=== PATIENT | female | born 1945 | race Caucasian/White ===

== ENCOUNTER → 2017-11-01 05:58 | Outpatient (CLI) | payer MEDICARE, SELFPAY ==
--- NOTE | 2017-11-01 17:59 | STRESSREP ---
Stress Test Report Pharmacologic myocardial perfusion stress test. 72-year-old lady with a history of chest pain. Stress protocol: Resting EKG demonstrates normal sinus rhythm with a rate of 56 bpm and incomplete left bundle branch block is noted. 0.4 mg of regadenoson was infused per usual protocol followed by rapid intravenous saline flush injection. Continuous EKG monitoring was performed. Patient maintained sinus rhythm throughout the recording the maximum heart rate attained was 108 bpm which was 72% maximum predicted heart rate the maximum workload attained was 1 metabolic equivalent. At rest there were no ST or T-wave changes noted suggest abnormal flow reserve at peak infusion no ST or T-wave changes were noted suggest abnormal flow reserve. Resting blood pressure is 128/80 with a final blood pressure 120/78. Myocardial perfusion protocol. 14.1 mCi of technetium 99m sestamibi was injected at rest. 0.4 mg regadenoson was infused per usual protocol. Peak infusion 45.0 mCi of technetium 99m sestamibi was injected. Stress images were obtained stress and rest images were reconstructed and compared in the short axis vertical long and horizontal long axis. Gated images were also obtained. Perfusion SPECT analysis: Review of the stress images demonstrate normal uptake of tracer noted in all areas of the myocardium. The resting images similarly demonstrate normal uptake of tracer noted in all areas of the myocardium. No areas of reversibility are noted no previous infarct is present. Gated SPECT analysis: The gated ejection fraction is noted to be 81%. Conclusion: Normal pharmacologic myocardial perfusion stress test. Preserved ejection fraction.
== END ==
PROVIDERS: Family Provider Internal Medicine; PCP Internal Medicine; Visit Provider Internal Medicine
DX: R07.9 Chest pain, unspecified (principal); I44.7 Left bundle-branch block, unspecified
CPT/HCPCS: 78452; 93017; A9500; A4216; J2785

== ENCOUNTER 2018-02-22 08:29 | Emergency (ER) | payer MEDICARE, SELFPAY ==
[2018-02-22 08:30] VITALS: BP 120/88; PULSE 74; RESP 16; TEMP 36.7; O2SAT 96; BMI 31.1
--- NOTE | 2018-02-22 08:46 | RAD_ITS ---
STUDY: X-RAY - RIGHT KNEE REASON FOR EXAM: Female, 72 years old. Limited range of motion TECHNIQUE: 4 view(s) of the knee. COMPARISON: None. FINDINGS: There is mild osteophytosis. There is no fracture. There is no osseous destruction. IMPRESSION: Mild degenerative changes Electronically Signed: Kale Ayers MD at 9:33 EDT Tel , Service support , RAD/Knee 4 or More Views
--- NOTE | 2018-02-22 08:52 | NURSING ---
NO LW OR POA
--- NOTE | 2018-02-22 08:53 | ED.VISSUMM ---
- ER Visit Summary Date of Service: 02/22/18 Chief Complaint: Right knee pain History of Present Illness: The patient is a 72 F with right knee pain for the past 3 days. She states the first day to start as mild aching, but was worsened yesterday. She was seen at urgent care yesterday where patient states she was told was probably a ligament injury. I last evening the pain was worse and she was unable to bear weight. She went back to the urgent care today but was sent directly to the emergency room. She denies any known injury. It is not been red or warm. She has had no prior knee surgery. Physical Examination: Vital signs are unremarkable. Patient sitting upright in bed no acute distress. Head neck examination is unremarkable. Heart is regular rate and rhythm. Lower extremity examination reveals focal tenderness of the medial aspect of the right knee. There is no tenderness of the anterior lateral knee. There is mild focal edema. There is no significant pain with movement of the knee. There is no calf tenderness or edema. There are strong distal pulses. Test Results: Right knee x-rays reveal mild degenerative changes. Emergency Department Course and Treatment: Test results are discussed with patient and her at bedside. She was treated with oxycodone and prednisone. Clinically I see no sign of acute infection in her knee. I see no sign of DVT. I believe she likely strained her MCL and has focal tenderness and swelling to this area. Should be treated with a short course of oxycodone and prednisone at home. Treatment Plan: [] Disposition: Discharge Impression: Right knee sprain This note was generated with [employer] dictation software. It may contain incorrect words, spelling, and punctuation that were not noted in review of the chart prior to signing ED Disposition - Plan for ED Patient: Chief Complaint: Lower Extremity Injury Referrals: Pastora Venegas MD [Primary Care Provider] -
[2018-02-22] MEDS: predniSONE 20 MG Tablet 60 MG PO (09:57)
[2018-02-22] MEDS: oxyCODONE 5 MG Tablet PO (09:57)
--- NOTE | 2018-02-22 09:57 | ED.DEP ---
ED Disposition - Plan for ED Patient: Disposition: Home or Assisted Living Chief Complaint: Lower Extremity Injury Instructions: ED Sprain Knee Prescriptions: Oxycodone HCl/Acetaminophen [Percocet 5/325] 1 tablet PO Q6H PRN PRN 3 Days #12 tablet PRN Reason: Pain Prednisone [Deltasone] 60 mg PO DAILY #15 tab Referrals: Marcos Ybarra DO [STAFF PHYSICIAN] - 1 Week if not improving
[2018-02-22 11:04] VITALS: BP 144/63; PULSE 73; RESP 16; O2SAT 97
== END 2018-02-22 11:05 | disposition home or self-care (01) ==
PROVIDERS: Emergency Provider Emergency Medicine; Family Provider Internal Medicine; PCP Internal Medicine
DX: S83.91XA Sprain of unspecified site of right knee, initial encounter (principal); X58.XXXA Exposure to other specified factors, initial encounter; Y93.9 Activity, unspecified; Y92.9 Unspecified place or not applicable; Y99.9 Unspecified external cause status; J45.909 Unspecified asthma, uncomplicated
CPT/HCPCS: 73564; 99283

== ENCOUNTER 2018-10-07 20:53 | Emergency (ER) | payer MEDICARE, SELFPAY ==
[2018-10-07 20:53] VITALS: BP 148/100; PULSE 97; RESP 24; TEMP 36; O2SAT 98; BMI 31.9
--- NOTE | 2018-10-07 21:06 | EKG12_ITS ---
Test Reason : Blood Pressure : / mmHG Vent. Rate : 078 BPM Atrial Rate : 078 BPM P-R Int : 148 ms QRS Dur : 118 ms QT Int : 414 ms P-R-T Axes : 032 033 092 degrees QTc Int : 471 ms Normal sinus rhythm Low voltage QRS Septal infarct , age undetermined Abnormal ECG Confirmed by SIMIN TYLER ([id number]), digital editor KELLY FLANNERY ([id number]) on 10/10/2018 1:12:12 PM Referred By: JODI Confirmed By:SIMIN TYLER
--- NOTE | 2018-10-07 21:06 | RAD_ITS ---
STUDY: X-RAY CHEST REASON FOR EXAM: Female, 73 years old. Shortness of breath TECHNIQUE: Frontal view of the chest COMPARISON: None. FINDINGS: The lungs are clear. There are no pleural effusions. There is no pneumothorax. The heart is normal in size. The visualized osseous structures are within normal limits. RAD/Chest 1 View (Portable) IMPRESSION: No acute thoracic pathology. Electronically Signed: Kale Villalta, at 21:59 EST Tel , Service support ,
[2018-10-07 21:17] VITALS: O2SAT 94
[2018-10-07] MEDS: Ipratropium/Albuterol Sulfate 3 ML AMPUL.NEB INHALATION (21:21)
[2018-10-07 21:36] VITALS: PULSE 96; RESP 20
[2018-10-07 21:41] LABS: Absolute Lymphocyte Count 1.52 X10^3/ul (0.83-4.51); Absolute Neutrophil Count 6.1 X10^3/uL (2.0-7.7); Basophil# 0.04 X10^3/uL; Basophil% 0.5 % (0-1); Eosinophils% 1.2 % (0-5); Hematocrit 39.8 % (37-47); Hemoglobin 12.9 g/dl (12.0-15.0); Lymphocyte # 1.52 X10^3/ul (4.0); Lymphocyte % 17.9 % (19-41); Mean Corp Hgb Conc 32.4 g/gl (32-36); Mean Corpuscular Hgb 27.8 pg (27.0-32.0); Mean Corpuscular Volume 85.8 fL (81-99); Mean Platelet Vol. 9.9 fl (6.2-12.0); Monocyte# 0.66 X10^3/uL; Monocyte% 7.8 % (0-10); Neutrophil # 6.13 X10^3/uL (2.7-7.7); Neutrophil % 72.4 % (47-70); Platelet Count 308 K/mm3 (150-450); RBC Distribution Width CV 14.6 % (11.6-14.6); RBC Distribution Width SD 45.8 fl (35.1-43.9); Red Blood Count 4.64 M/mm3 (4.2-5.4); White Blood Count 8.5 K/mm3 (4.4-11.0)
[2018-10-07 21:42] LABS: POSITIVE COUNT NO; POSITIVE DIFFERENTIAL NO; POSITIVE MORPHOLOGY NO
[2018-10-07 21:57] LABS: Anion Gap 7 (5-15); BUN 10 mg/dL (7-18); Calcium,Total 8.1 mg/dL (8.5-10.1); Chloride 108 mmol/L (98-107); EST Glomerular Filtration Rate 58 mL/min (>60); Est Glom Filt Rate - Afr Amer 70 mL/min (>60); Estimated Creatinine Clearance 38.94 ml/min; Glucose 111 mg/dL (74-106); Potassium 4.2 mmol/L (3.5-5.1); Sodium Level 139 mmol/L (136-145)
[2018-10-07 21:59] VITALS: BP 159/100; PULSE 82; RESP 24; TEMP 36.6; O2SAT 95
--- NOTE | 2018-10-07 22:15 | ED.DCSUM_ITS ---
- ER Visit Summary Date of Service: 10/07/18 Chief Complaint: []-Shortness of breath hoarse voice for days History of Present Illness: The patient is a 73 F [] asthma she indicates a few days ago she developed a runny nose and a consistent cough and hoarse voice she was seen at a local urgent care started on prednisone she has inhalers at home she still continues to complain of postnasal drainage and harsh coughing she denies chest pain abdominal pain numbness 6 paresthesias but no history of [place] PE or DVT asthma is generally well controlled Physical Examination: [] Ox 96 afebrile blood pressure within normal range General, no distress resting comfortably HEENT is generally unremarkable she has a dry harsh cough and a slight hoarse voice there is no stridor or drooling no airway compromise The neck is supple no adenopathy Cardiovascular, regular rate and rhythm Lungs, clear bilateral Abdomen, soft nontender Extremities, no clubbing cyanosis or edema Neurologic, awake alert answering questions appropriately moving all 4 extremities Test Results: [] Emergency Department Course and Treatment: [] has a URI with harsh cough she is been on steroids her EKG shows a sinus rhythm nothing acute left bundle no new changes will provide therapy screening labs The screening labs are unremarkable as is the chest x-ray and explained the above to her at this time we will continue the inhalers she is currently on steroids which she will complete, I do not believe she would benefit from antibiotics, we will start Flonase to help with her postnasal drainage and have her follow-up with her family doctors in the next few days Treatment Plan: [] Disposition: [] Home stable Impression: [] URI with harsh cough asthma This note was generated with [employer] dictation software. It may contain incorrect words, spelling, and punctuation that were not noted in review of the chart prior to signing ED Disposition - Plan for ED Patient: Referrals: Pastora Venegas MD [Primary Care Provider] -
--- NOTE | 2018-10-07 22:28 | DCINST.ED_ITS ---
ED Disposition - Plan for ED Patient: Instructions: ED Reactive Airway Disease, ED Bronchitis Asthmatic Prescriptions: Albuterol Inhaler [Ventolin Hfa] 1 - 2 puff INHALATION Q4H PRN PRN #1 inhaler PRN Reason: Wheezing Fluticasone 0.05% [Flonase Nasal [place]] 1 spray NASAL BID #1 nasal.sry Referrals: Pastora Venegas MD [Primary Care Provider] -
[2018-10-07 22:50] VITALS: BP 137/52; PULSE 87; RESP 20; O2SAT 96
== END 2018-10-07 22:50 | disposition home or self-care (01) ==
LOC: ED 21:30
PROVIDERS: Emergency Provider Emergency Medicine; Family Provider Internal Medicine; PCP Internal Medicine
DX: J06.9 Acute upper respiratory infection, unspecified (principal); J45.909 Unspecified asthma, uncomplicated; Z79.899 Other long term (current) drug therapy
CPT/HCPCS: 71045; 80048; 83880; 84484; 85025; 93005; 94640; 99284; A4216

== ENCOUNTER 2018-11-03 02:15 | Emergency (ER) | payer MEDICARE, SELFPAY ==
[2018-11-03 02:16] VITALS: BP 103/81; PULSE 94; RESP 16; TEMP 36.9; O2SAT 97; BMI 32.1
--- NOTE | 2018-11-03 02:50 | RAD_ITS ---
STUDY: X-RAY - LEFT KNEE REASON FOR EXAM: Female, 73 years old. Fall. Knee pain TECHNIQUE: 3 view(s) of the knee. COMPARISON: None. FINDINGS: Normal visualized distal femur. Normal visualized proximal tibia and fibula. Normal proximal tibiofibular articulation. There is mild degenerative arthrosis of the medial femorotibial compartment. There is mild degenerative arthrosis of the lateral femorotibial compartment. There is moderate degenerative arthrosis of the patellofemoral articulation. There is a moderate volume joint effusion. The soft tissue structures are unremarkable. RAD/Knee 3 Views IMPRESSION: Effusion, as described above. Electronically Signed: Nataliya Root, at 4:53 EDT Tel , Service support ,
--- NOTE | 2018-11-03 02:51 | ED.DCSUM_ITS ---
- ER Visit Summary Date of Service: 11/03/18 Chief Complaint: Fell and complaint of left knee pain and swelling History of Present Illness: The patient is a 73 F patient was at the [employer] and had an issue with there is some point. She slipped or stepped into the sump pump hole on Saturday afternoon. Later that evening developed pain and swelling in her left knee. She states her left knee she does not think after hit the ground. She stepped in the forrest with her right leg. She is never had a significant problems with her left knee. Denies any other injuries. Currently is on no blood thinners. Has never had left knee surgery. Physical Examination: Older female no acute distress. Vital signs are stable and afebrile. HEENT exam unremarkable. Lungs clear to auscultation bilaterally. Heart regular rhythm no murmur. Abdomen soft and nontender. Extremities moves all 4. Her left knee is swollen and tender. There is an obvious effusion. She is able to do flexion extension limited flexion due to the swelling. She can do 180 degrees of extension. She can lift her leg off the bed proven extensor mechanism is intact. The ACL, PCL, LCL and MCL all appear to have good endpoints. No obvious tear. She does have joint space swelling and tenderness. The left hip proximal femur, left lower leg, ankle and foot are nontender neurovascular intact. Normal DP pulse left foot. Dorsi and plantar flexion intact. Normal touch sensation. No gross bony deformity. Skin is intact. No signs of infection. No redness or warmth. Test Results: Left knee x-ray no acute bony abnormality. Good joint space. She does have a moderate effusion. I did go over the films with both patient and her . Repeat exam is unchanged at 03:35 AM. Emergency Department Course and Treatment: Patient was offered but deferred any pain medication at this time. Treatment Plan: Ice and elevate. Tylenol and limited Motrin for pain and swelling. Follow-up with her primary care physician if not improving she may need an MRI to rule this school tear or other ligament or tendinous injury. Disposition: Discharge Impression: Acute left knee pain and swelling with left knee joint effusion This note was generated with [employer] dictation software. It may contain incorrect words, spelling, and punctuation that were not noted in review of the chart prior to signing ED Disposition - Plan for ED Patient: Referrals: Pastora Venegas MD [STAFF PHYSICIAN] -
--- NOTE | 2018-11-03 03:42 | DCINST.ED_ITS ---
ED Disposition - Plan for ED Patient: Disposition: Home or Assisted Living Instructions: ED Sprain Knee Additional Instructions: Ice and elevate your left knee as much as possible. This will help decrease the pain and swelling. Tylenol and either Motrin, ibuprofen or Advil 400 mg twice a day for pain and swelling. Follow-up with your doctor if the pain and swelling is not improving. The x- rays do not show any type of fracture. However this does not rule out a meniscal (cartilage) or tendon injury. If this is not improving he may need an MRI of your knee for further evaluation of the soft tissues.
== END 2018-11-03 03:52 | disposition home or self-care (01) ==
PROVIDERS: Emergency Provider Emergency Medicine; Family Provider Family Medicine; PCP Family Medicine
DX: S83.92XA Sprain of unspecified site of left knee, initial encounter (principal); M25.462 Effusion, left knee; W17.2XXA Fall into hole, initial encounter; Y93.9 Activity, unspecified; Y92.9 Unspecified place or not applicable; Y99.9 Unspecified external cause status; J45.909 Unspecified asthma, uncomplicated; Z79.899 Other long term (current) drug therapy
CPT/HCPCS: 73562; 99282

== ENCOUNTER 2019-01-13 11:51 | Emergency (ER) | payer MEDICARE, SELFPAY ==
[2019-01-13 11:53] VITALS: BP 148/73; PULSE 97; RESP 17; TEMP 36.9; O2SAT 96; BMI 32.8
--- NOTE | 2019-01-13 12:13 | EKG12_ITS ---
Test Reason : ALLERGIC REACTION Blood Pressure : / mmHG Vent. Rate : 083 BPM Atrial Rate : 083 BPM P-R Int : 158 ms QRS Dur : 114 ms QT Int : 442 ms P-R-T Axes : 026 008 130 degrees QTc Int : 519 ms Normal sinus rhythm Septal infarct (cited on or before 07-OCT-2018) Prolonged QT Abnormal ECG Confirmed by GRACY COOK ([id number]), deputy editor in chief NEETU RODAS ([id number]) on 01/15/2019 11:45:46 AM Referred By: DEDE Confirmed By:SANDRA COOK
--- NOTE | 2019-01-13 12:16 | ED.DCSUM_ITS ---
- ER Visit Summary Date of Service: 01/13/19 Chief Complaint: Rash and tongue swelling History of Present Illness: The patient is a 73 F who presents for rash and sensation of her tongue swelling and becoming numb. Patient had a colonoscopy yesterday. Approximately 30 minutes prior to seeking medical care, she began well-appearing a rash on her back and on her forearms, and also developed sensation that her tongue was swelling and becoming numb. Patient has had prior allergic reactions with similar symptoms. Patient was seen at a medical clinic and sent to the emergency department for further evaluation. She denies any lightheadedness or dizziness, headache, chest pain, wheezing, shortness of b reath, nausea or vomiting, abdominal pain. She does have complaints of rash and pruritus to the back and the upper extremities. Denies any sensation of her throat swelling. No cardiac history. Physical Examination: Vital signs: afebrile, hemodynamically stable, no hypoxia on room air General: well nourished, well developed, in no distress Skin: warm, dry, erythematous rash in the pattern of adhesive of a pad that was on her back, urticarial rash to the left forearm, no pallor HEENT: normocephalic and atraumatic; PERRL, EOMI, moist mucous membranes, no noted tongue or lip swelling Cardiovascular: regular rate and rhythm without murmurs, no peripheral edema, 2+ pulses all distal extremities Respiratory: No increased work of breathing, lungs are clear to auscultation bilaterally, no rales, rhonchi or wheezing, no stridor Abdominal: Abdomen is soft, nontender with normoactive bowel sounds, no guarding or rebound, no masses MSK: Moves all extremities, no deformities, normal strength Neuro: Awake and alert, oriented ?4. No facial droop, sensation and motor function intact and symmetric Test Results: Medications Given Discontinued Medications Diphenhydramine HCl (Benadryl) 25 mg IV X1 ONE Stop: 01/13/19 12:13 Last Admin: 01/13/19 12:28 Dose: 25 mg Epinephrine HCl () 0.3 mg IM X1 ONE Stop: 01/13/19 12:13 Last Admin: 01/13/19 12:28 Dose: 0.3 mg Famotidine 20 mg/ Sodium (Chloride) 10 mls @ 300 mls/hr IV X1 ONE Stop: 01/13/19 12:13 Last Admin: 01/13/19 12:32 Dose: 300 mls/hr Methylprednisolone (Solu-Medrol) 125 mg IV X1 ONE Stop: 01/13/19 12:13 Last Admin: 01/13/19 12:28 Dose: 125 mg Emergency Department Course and Treatment: Patient presents with urticaria and sensation of her tongue swelling, concerning for severe allergic reaction. She was given EpiPen, Benadryl, famotidine and Solu-Medrol. EKG was obtained given her age and the administration of epinephrine. EKG showed sinus rhythm with no ischemic changes or ectopy. It did have a prolonged QTc interval. Patient was reevaluated and felt much better. The tongue swelling and numbness sensation had completely resolved. Her urticaria had improved although there was still a mild erythematous rash where the adhesive padded been on her back. Her pruritus was resolved. Patient was observed for a few hours and had no return of her symptoms. She was discharged with a prescription for EpiPen, Benadryl, and prednisone. She is to return if any worsening of her condition. Treatment Plan: [] Disposition: [] Impression: Severe allergic reaction This note was generated with [employer] dictation software. It may contain incorrect words, spelling, and punctuation that were not noted in review of the chart prior to signing ED Disposition - Plan for ED Patient: Disposition: Home or Assisted Living Instructions: ED Anaphylaxis General Prescriptions: DiphenhydrAMINE [Benadryl] 25 mg PO TID PRN PRN #30 cap PRN Reason: Itching Epinephrine [Epipen] 0.3 mg IJ X1 PRN #2 auto.injct PRN Reason: Anaphylaxis RX: Prednisone [Deltasone] 40 mg PO DAILY #10 tab Referrals: Jeff Diehl MD [Primary Care Provider] - 1-2 Days if not improving Additional Instructions: If you have any return of your severe symptoms, use your EpiPen. Take the prednisone for 5 days as prescribed. Use Benadryl as needed for itching and rash. Make sure to take your EpiPen's with you on your travels. If you have any worsening of your condition or any new concerning symptoms, please return immediately to the emergency department for another evaluation.
[2019-01-13] MEDS: MethylPREDNISolone 125 MG/2 ML Vial IV (12:28)
[2019-01-13] MEDS: DiphenhydrAMINE 50 MG/ML Syringe 25 MG IV (12:28)
[2019-01-13 13:00] VITALS: BP 134/58; PULSE 87; RESP 16; O2SAT 97
[2019-01-13 13:54] VITALS: BP 140/64; PULSE 87; RESP 18; O2SAT 97
[2019-01-13 14:48] VITALS: BP 129/78; PULSE 96; RESP 16; O2SAT 98
== END 2019-01-13 14:58 | disposition home or self-care (01) ==
PROVIDERS: Emergency Provider Emergency Medicine; Family Provider Family Medicine; PCP Family Medicine
DX: T78.40XA Allergy, unspecified, initial encounter (principal); L29.9 Pruritus, unspecified; R22.0 Localized swelling, mass and lump, head; R21 Rash and other nonspecific skin eruption; X58.XXXA Exposure to other specified factors, initial encounter; I45.81 Long QT syndrome
CPT/HCPCS: 93005; 96372; 96374; 96375; 99283; J7030; J3490

== ENCOUNTER 2020-03-30 05:48 | Emergency (ER) | payer MEDICARE, SELFPAY ==
[2020-03-30 05:49] VITALS: BP 160/72; PULSE 89; RESP 18; TEMP 36.5; O2SAT 95; BMI 32.0
--- NOTE | 2020-03-30 06:34 | EKG12_ITS ---
Test Reason : ABNL PAIN Blood Pressure : / mmHG Vent. Rate : 063 BPM Atrial Rate : 063 BPM P-R Int : 164 ms QRS Dur : 120 ms QT Int : 494 ms P-R-T Axes : 018 019 087 degrees QTc Int : 505 ms Normal sinus rhythm Septal infarct , age undetermined Abnormal ECG Confirmed by JOYCE MONTANEZ, GRACY ([id number]), purchase request editor DAMEON GIMENEZ ([id number]) on 04/01/2020 11:25:38 A M Referred By: BRIAN Confirmed By:SANDRA COOK MD
--- NOTE | 2020-03-30 06:37 | CT_ITS ---
STUDY: CT ABDOMEN AND PELVIS WITH CONTRAST REASON FOR EXAM: Female, 75 years old. LLQ PAIN -- HX-DIVERTICULITIS YEARS AGO RADIATION DOSAGE (If Supplied By Facility): CTDIvol = ( 19.1 ) mGy, DLP = ( 1040.85 ) mGycm TECHNIQUE: Transaxial images were obtained from the dome of the diaphragm to the symphysis pubis without oral contrast. IV 100mL Isovue-300 was administered. Sagittal and coronal images were reconstructed. Individualized dose optimization techniques were used for this CT. COMPARISON: None. FINDINGS: The visualized lung bases are unremarkable. The visualized portions of the heart are within normal limits. There is a tiny left hepatic lobe cyst adjacent to the falciform ligament measuring approximately 1.4 cm in diameter.. There is a solitary gallstone. Normal spleen. Normal pancreas. Normal bilateral adrenal glands. Normal right kidney. Normal left kidney. Normal visualized stomach. Normal small intestine. There are multiple colonic diverticula consistent with diverticulosis. There is a large amount of retained stool throughout the colon. Correlate for constipation. There is non-visualization of the appendix. There is mild omental fat stranding changes within the anterior aspect of the abdomen anterior to the transverse colon. There is diffuse atherosclerotic calcification of the abdominal aorta, without a demonstrated aneurysm. Normal inferior vena cava. Normal retroperitoneum. Normal urinary bladder. Normal abdominal wall. There are diffuse degenerative changes of the visualized lumbar spine. CT/Abdomen/Pelvis W IV Cont ONLY IMPRESSION: Mild fat stranding changes within the omentum, anterior to the transverse colon. Differential includes possible omental infarct. Infectious inflammatory process also considered. There is no adjacent abnormality of the transverse colon.. Colonic diverticulosis involving the descending and sigmoid colon. Trace fluid adjacent to the sigmoid colon in the left lower pelvis with suggestion of mild wall thickening of this segment, series 2 image 84. Concurrent Mild diverticulitis not excluded. No organized fluid collections. Cholelithiasis without evidence for cholecystitis. Electronically Signed: Juan Alberto Cotton, at 8:03 EDT Tel , Service support ,
--- NOTE | 2020-03-30 06:39 | RAD_ITS ---
STUDY: X-RAY CHEST REASON FOR EXAM: Female, 75 years old. C/O LLQ PAIN, NO PROBLEMS WITH CHEST TECHNIQUE: AP COMPARISON: 10/07/2018. FINDINGS: The lungs are clear and expanded. There is no demonstrated pleural abnormality. Normal size heart. Normal mediastinum and severino. Normal visualized pulmonary arteries. Normal visualized aortic arch and descending thoracic aorta. There are diffuse degenerative changes of the visualized thoracic spine. There is no demonstrated abnormality of the visualized soft tissue structures of the upper abdomen. RAD/Chest 1 View (Portable) IMPRESSION: Negative x-ray examination of the chest. No interval change. Electronically Signed: Juan Alberto Cotton, at 7:24 EDT Tel , Service support ,
--- NOTE | 2020-03-30 06:40 | ED.DCSUM_ITS ---
History of Present Illness Chief Complaint: Abd Pain Informant: Patient, Significant Other - Abdominal Pain/Flank Pain Onset: Today Context: Sudden Onset Timing: Continuous Quality: Sharp Location: LLQ Worsened by: Nothing Relieved by: Nothing - Nausea/Vomiting/Emesis GI Symptom: Negative for: Nausea, Vomiting - Diarrhea/Melena/Hematochezia GI Symptom: Negative for: Diarrhea, Melena, Hematochezia Associated Symptoms: Negative for: Dysuria, Frequency, Hematuria, Urgency Narrative: Patient is a 75-year-old female with history of hyperlipidemia presenting with left lower quadrant abdominal pain. Patient states she is had 2 months of intermittent episodes of left lower quadrant pain they normally resolve spontaneously and she has not thought too much of it. She states last night the pain developed at rest but did not go away like normally. She states is been constant and sharp in nature. She feels that now radiates up to around her heart. She was able to sleep because of the pain last night and she came into the emergency room to be evaluated further. She did not try to take any medication for her pain prior to arrival. She denies any urinary symptoms. She denies any change in her bowel habits. She denies associated nausea or vomiting. She had a tubal ligation with denies any other abdominal surgeries. She does have some mild pain in the left side of her chest below her breast which she feels is radiating up from her abdomen. She denies any associated shortness of breath or difficulty breathing. She denies any fever or chills. No other complaints at this time. Prior similar symptoms: Yes - Intermittent for the past 2 months Recent Illness/Hospitalization: No Past Medical History - Allergies and Home Meds Allergies/Adverse Reactions: Allergies aspirin Allergy (Verified 01/13/19 11:52) Hives Iodinated Contrast Media [Iodinated Contrast Media - Oral and] Allergy (Verified 01/13/19 11:52) Hives shellfish derived Allergy (Verified 01/13/19 11:52) Hives strawberry Allergy (Verified 01/13/19 11:52) Hives Primary Care Physician: Jeff Diehl MD [Primary Care Provider] - Past Medical History: - - Hyperlipidemia Surgical History: - - Tubal ligation Lives: Spouse/ Significant Other Smoking Status: Never smoker Review of Systems General: Denies: Chills, Fever, Sweats Eyes: Denies: Visual changes - bilaterally, Diplopia ENT: Denies: Rhinorrhea, Sore throat Cardiovascular: Reports: Chest pain. Denies: Palpitations Respiratory: Denies: Dyspnea, Cough, Dyspnea on exertion Gastrointestinal: Reports: Abdominal pain. Denies: Nausea, Vomiting, Diarrhea, Melena, Hematochezia Genitourinary: Denies: Dysuria, Hematuria, Frequency Musculoskeletal: Denies: Back pain, Extremity Pain Skin: Denies: Rash, Wounds Neurological: Denies: Headache, Weakness, Numbness Physical Exam Vital Signs/Narrative: Vital Signs Temp Pulse Resp BP Pulse Ox 03/30/20 05:49 97.7 F L 89 18 160/72 H 95 Inital Vital Signs reviewed: Yes General: Well nourished, Well developed, No Acute Distress Head: Normocephalic, Atraumatic Eyes: Perrl, EOMI ENT: Moist mucous membranes, No rhinorrhea Neck: Supple, Nontender Cardiovascular: Regular rate, Regular rhythm, No murmurs Respiratory: No distress, CTA bilaterally, Chest nontender Abdomen: Soft, Nondistended, Normal bowel sounds, Tender - Left lower quadrant, - - No hernia palpated. Negative for: Guarding, Rebound tenderness, Mass Back: Nontender, Normal Inspection. Negative for: CVA tenderness Extremities: Nontender, No edema Skin: Normal color, No rash Neurological: Alert, Oriented x3, Cranial nerves II-XII grossly intact, Normal Strength, Normal Sensation Psychological: Normal affect, Normal Mood Diagnostic/Tx/Re-eval Chest X-Ray - ED: 1 View, Read by ED Physician, Read by Radiologist, No Acute Disease Clinical Impression(s) from Imaging Studies Abdomen/Pelvis CT 03/30/20 06:37 IMPRESSION: Mild fat stranding changes within the omentum, anterior to the transverse colon. Differential includes possible omental infarct. Infectious inflammatory process also considered. There is no adjacent abnormality of the transverse colon.. Colonic diverticulosis involving the descending and sigmoid colon. Trace fluid adjacent to the sigmoid colon in the left lower pelvis with suggestion of mild wall thickening of this segment, series 2 image 84. Concurrent Mild diverticulitis not excluded. No organized fluid collections. Cholelithiasis without evidence for cholecystitis. Electronically Signed: Juan Alberto Cotton, at 8:03 EDT Tel , Service support , Chest X-Ray 03/30/20 06:39 IMPRESSION: Negative x-ray examination of the chest. No interval change. Electronically Signed: Juan Alberto Cotton, at 7:24 EDT Tel , Service support , Laboratory Data 03/30/20 03/30/20 03/30/20 06:45 06:45 06:45 WBC 8.1 RBC 4.63 Hgb 12.7 Hct 39.1 MCV 84.4 MCH 27.4 MCHC 32.5 RDW Std Deviation 41.8 RDW Coeff of Mary 13.4 Plt Count 341 MPV 10.2 Immature Gran % (Auto) 0.200 Neut % (Auto) 61.7 Lymph % (Auto) 25.4 [place] % (Auto) 7.7 Eos % (Auto) 4.3 Baso % (Auto) 0.7 Absolute Neuts (auto) 5.0 Absolute Lymphs (auto) 2.05 Nucleated RBC % 0 Sodium 139 Potassium 3.8 Chloride 106 Carbon Dioxide 28.0 Anion Gap 5 BUN 11 Creatinine 0.87 Estim Creat Clear Calc 41.37 Est GFR (MDRD) Af Amer 82 Est GFR (MDRD) Non-Af 68 BUN/Creatinine Ratio 12.7 Glucose 109 H Lactic Acid 0.9 Calcium 8.4 L Total Bilirubin 0.30 AST 14 L ALT 23 Alkaline Phosphatase 105 Troponin I < 0.015 Total Protein 7.1 Albumin 3.1 L Globulin 4.0 Albumin/Globulin Ratio 0.8 L Lipase 42 L - Rhythm Strip Rhythm Strip: Sinus Rhythm Rate: 63 Ectopy: None - EKG Initial EKG Interpretation: Sinus Rhythm, - - Normal sinus rhythm at a rate of 63 Normal axis Normal intervals Normal ST segments Nonspecific T wave inversion in aVL No prior EKG available for comparison - Medical Decision Making Patient is evaluated for worsening pain in her left lower quadrant. Is been intermittent for the past 2 months but became constant and much more severe tonight. Vital signs are significant only for mild hypertension. Her abdominal exam is benign but she does have tenderness in her left lower quadrant. Cardiac work-up as well as belly labs and CT of the abdomen pelvis will be obtained. Patient states that she does have a history of to iodine but it caused hives. She denies a history of associated anaphylaxis. Patient will be pretreated with Benadryl and Solu-Medrol and will be given IV contrast for better evaluation of the intestines. Patient is agreeable with this. Lab work is largely unremarkable. Patient feels that she is some radiation of pain up into her chest but I have a very low suspicion for ACS or dissection. Chest x-ray and EKG as well as troponin are unremarkable. CT of the abdomen pelvis does show questionable omental infarct as well as questionable diverticulitis. This could explain her symptoms. This is discussed with surgery on-call, Dr. Pryor, who is agreeable with treating her empirically with Augmentin and having her follow-up in the office. At this time she does not think patient requires emergent surgical evaluation and I agree with this. Patient was treated with 1 dose of morphine and has significant improvement of her symptoms. She does not want anything prescribed to go home stating she will just take Tylenol. Patient is given return precautions. She verbalized agreement of This plan. Patient discharged home in stable condition. ED Disposition - Plan for ED Patient: Disposition: Home or Assisted Living Diagnosis: Left lower quadrant abdominal pain, Omental infarction, Diverticulitis Instructions: ED Diverticulitis Prescriptions: Amox/Clavulanate Tablet [Augmentin Tablet] 875 mg PO Q12H #20 tab Transmission Status: Pending to [facility]/pharmacy #[id number] Referrals: Jeff Diehl MD [Primary Care Provider] - Silvia Pryor MD [STAFF PHYSICIAN] - 1 Week Additional Instructions: Your CT showed no acute surgical abnormalities. Did show a possible area of infarct or decreased blood flow to the omentum of your abdomen and possible diverticulitis. You will be started on antibiotics for this. Please follow-up with the surgeon for repeat abdominal exam in 1 week. Call the office today to make an appointment. Return the emergency room with any worsening symptoms. Take Tylenol as needed for pain.
[2020-03-30] MEDS: Morphine 4 MG/ML Syringe IV (06:46)
[2020-03-30] MEDS: DiphenhydrAMINE 50 MG/ML Syringe IV (06:46)
[2020-03-30] MEDS: 0.9% Normal Saline 1,000 ML 1000 ML IV (06:46)
[2020-03-30 06:52] LABS: Absolute Lymphocyte Count 2.05 X10^3/uL (0.83-4.51); Basophil# 0.06 X10^3/uL; Basophil% 0.7 % (0-1); Eosinophil# 0.35 X10^3/uL; Eosinophils% 4.3 % (0-5); Hematocrit 39.1 % (37-47); Hemoglobin 12.7 g/dL (12.0-15.0); Lymphocyte # 2.05 X10^3/ul (4.0); Lymphocyte % 25.4 % (19-41); Mean Corp Hgb Conc 32.5 g/dL (32-36); Mean Corpuscular Hgb 27.4 pg (27.0-32.0); Mean Corpuscular Volume 84.4 fL (81-99); Mean Platelet Vol. 10.2 fl (6.2-12.0); Monocyte# 0.62 X10^3/uL; Monocyte% 7.7 % (0-10); NRBC Flagged by Analyzer 0 % (0-5); Neutrophil # 4.98 X10^3/uL (2.7-7.7); Neutrophil % 61.7 % (47-70); Platelet Count 341 K/mm3 (150-450); RBC Distribution Width CV 13.4 % (11.6-14.6); RBC Distribution Width SD 41.8 fl (35.1-43.9); Red Blood Count 4.63 M/mm3 (4.2-5.4); White Blood Count 8.1 K/mm3 (4.4-11.0)
[2020-03-30 07:11] LABS: ALB/GLOB Ratio 0.8 RATIO (0.9-2.4); AST(SGOT) 14 U/L (15-37); Alanine Aminotransfer ALT/SGPT 23 U/L (13-56); Albumin, Serum 3.1 g/dL (3.2-5.0); Alkaline Phosphatase 105 U/L (45-117); Anion Gap 5 (5-15); BUN 11 mg/dL (7-18); BUN/Creat Ratio 12.7 RATIO (10-20); Calcium,Total 8.4 mg/dL (8.5-10.1); Chloride 106 mmol/L (98-107); Creatinine, Serum 0.87 mg/dL (0.55-1.02); EST Glomerular Filtration Rate 68 mL/min (>60); Est Glom Filt Rate - Afr Amer 82 mL/min (>60); Estimated Creatinine Clearance 41.37 ml/min; Glucose 109 mg/dL (74-106); Lipase 42 U/L (73-393); Potassium 3.8 mmol/L (3.5-5.1); Protein, Total 7.1 g/dL (6.4-8.2); Sodium Level 139 mmol/L (136-145)
[2020-03-30 07:14] LABS: Lactic Acid 0.9 mmol/L (0.4-1.9)
[2020-03-30 08:02] VITALS: BP 125/59; PULSE 66; RESP 17; O2SAT 96
[2020-03-30 08:31] LABS: Bacteria 0 SEEN /hpf (None Seen); Mucous, Urine 0 SEEN /hpf (<or=2+); Red Blood Cells-Urine 0 SEEN /hpf (0-5); White Blood Cells 0 SEEN /hpf (0-5)
[2020-03-30 08:44] LABS: Color, Urine Yellow (Yellow); Glucose, Dipstick Normal (Normal); Ketone-Dipstick Negative (Negative); Leukocyte Esterase-Dipstick Negative /ul (Negative); Nitrite-Dipstick Negative (Negative); Occult Blood-Urine Negative /ul (Negative); Protein-Dipstick Negative (Negative); Urine Bilirubin Dipstick Negative (Negative); Urine Clarity Sl. Cloudy (Clear); Urine Urobilinogen Normal (Normal)
[2020-03-30 08:49] LABS: Squamous Epithelial Cells - UA 0-5 SEEN /hpf (5-10)
--- NOTE | 2020-03-30 09:19 | ED.DEP ---
ED Disposition - Plan for ED Patient: Disposition: Home or Assisted Living Diagnosis: Left lower quadrant abdominal pain, Omental infarction, Diverticulitis Instructions: ED Diverticulitis Prescriptions: Amox/Clavulanate Tablet [Augmentin Tablet] 875 mg PO Q12H #20 tab Transmission Status: Received by [id number] Oxycodone HCl/Acetaminophen [Percocet 5/325] 1 tab PO Q6H PRN PRN 3 Days #10 tab PRN Reason: Pain Prescription Printed Referrals: Silvia Pryor MD [STAFF PHYSICIAN] - 1 Week Jeff Diehl MD [Primary Care Provider] - Additional Instructions: Your CT showed no acute surgical abnormalities. Did show a possible area of infarct or decreased blood flow to the omentum of your abdomen and possible diverticulitis. You will be started on antibiotics for this. Please follow-up with the surgeon for repeat abdominal exam in 1 week. Call the office today to make an appointment. Return the emergency room with any worsening symptoms. Take Tylenol as needed for pain.
[2020-03-30] MEDS: Morphine 2 MG/ML Syringe IV (09:24)
[2020-03-30] MEDS: Amox/Clavulanate 875 MG Tablet PO (09:24)
[2020-03-30 09:29] VITALS: BP 134/60; PULSE 74; RESP 16; O2SAT 100
== END 2020-03-30 09:36 | disposition home or self-care (01) ==
PROVIDERS: Emergency Provider Emergency Medicine; PCP Family Medicine
DX: K55.069 Acute infarction of intestine, part and extent unspecified (principal); K57.30 Diverticulosis of large intestine without perforation or abscess without bleeding; I10 Essential (primary) hypertension; E78.5 Hyperlipidemia, unspecified; Z79.899 Other long term (current) drug therapy
CPT/HCPCS: 71045; 74177; 80053; 81001; 83605; 83690; 84484; 85025; 93005; 96361; 96374; 96375; 96376; 99284; J7030; Q9967; A4216

== ENCOUNTER 2020-04-08 09:22 | Emergency (ER) | payer MEDICARE, SELFPAY ==
[2020-04-08 09:24] VITALS: BP 119/56; PULSE 97; RESP 17; TEMP 36.1; O2SAT 99; BMI 31.1
--- NOTE | 2020-04-08 09:49 | ED.DCSUM_ITS ---
- ER Visit Summary Date of Service: 04/08/20 Chief Complaint: Abdominal pain History of Present Illness: The patient is a 75 F who presents with abdominal pain that began approximately 2 weeks ago. Patient was diagnosed with diverticulitis and was placed on Augmentin. Patient completed a course of Augmentin. Patient states her pain was improving until she finished her antibiotic and then it became worse again. Patient describes her pain is sharp. Patient states it is also burning at times. Patient states the pain is localized to the left lower quadrant. Patient denies any nausea or vomiting. Patient denies any diarrhea, melena, or hematochezia. Patient denies any dysuria or hematuria. Physical Examination: Vital signs are stable. Patient is afebrile. Patient is in no acute distress. Oral mucosa is pink and moist. Neck is supple. Trachea is midline. There is no JVD noted. Heart was regular rate and rhythm. Lungs are clear and equal bilaterally. Abdomen is soft. Bowel sounds are normal. There is left lower quadrant tenderness. There is no rebound or guarding noted. Skin is warm dry. Cranial nerves II through XII are intact. There are no focal motor or sensory deficits noted. Extremities are intact. There is no calf tenderness or edema. Test Results: CBC and comprehensive metabolic profile were within normal limits. Lipase was normal. Urinalysis shows leukocyte esterase of 100 with 25-50 white blood cells and 1+ bacteria. Emergency Department Course and Treatment: Patient was given IV fluids and morphine here. Patient was feeling better on reevaluation. Patient was advised of her findings. We will place the patient on antibiotics for urinary tract infection as well as possible persistent diverticulitis. Patient was given a dose of Cipro and Flagyl here. Patient was given prescriptions for Cipro and Flagyl. Patient was instructed to follow-up with her primary care physician in 5 to 7 days. Patient was instructed to avoid alcohol use. Patient understood and was agreeable with the plan. All questions were answered. Disposition: Discharge home Impression: 1. Urinary tract infection 2. Left lower quadrant abdominal pain This note was generated with [employer] software. It may contain incorrect words, spelling, and punctuation that were not noted in review of the chart prior to signing ED Disposition - Plan for ED Patient: Disposition: Home or Assisted Living Diagnosis: Urinary tract infection Instructions: ED Diverticulitis, ED CYSTITIS Female Adult Prescriptions: Ciprofloxacin [Cipro] 500 mg PO BID #20 tab Transmission Status: [id number] metroNIDAZOLE [Flagyl] 500 mg PO Q6H #40 tab Transmission Status: [facility] to [id number] Referrals: Jeff Diehl MD [Primary Care Provider] - 5-7 Days
[2020-04-08 10:00] LABS: Absolute Lymphocyte Count 2.05 X10^3/uL (0.83-4.51); Absolute Neutrophil Count 6.5 X10^3/uL (2.0-7.7); Basophil# 0.08 X10^3/uL; Basophil% 0.8 % (0-1); Eosinophil# 0.31 X10^3/uL; Eosinophils% 3.2 % (0-5); Lymphocyte # 2.05 X10^3/ul (4.0); Lymphocyte % 20.8 % (19-41); Mean Corp Hgb Conc 32.5 g/dL (32-36); Mean Corpuscular Hgb 27.1 pg (27.0-32.0); Mean Corpuscular Volume 83.5 fL (81-99); Mean Platelet Vol. 10.1 fl (6.2-12.0); Monocyte# 0.83 X10^3/uL; Monocyte% 8.4 % (0-10); NRBC Flagged by Analyzer 0 % (0-5); Neutrophil # 6.54 X10^3/uL (2.7-7.7); Neutrophil % 66.5 % (47-70); Platelet Count 372 K/mm3 (150-450); RBC Distribution Width CV 13.8 % (11.6-14.6); RBC Distribution Width SD 42.3 fl (35.1-43.9); Red Blood Count 4.79 M/mm3 (4.2-5.4); White Blood Count 9.8 K/mm3 (4.4-11.0)
[2020-04-08 10:10] LABS: Mucous, Urine 0 SEEN /hpf (<or=2+); Red Blood Cells-Urine 0 SEEN /hpf (0-5)
--- NOTE | 2020-04-08 10:15 | RAD_ITS ---
STUDY: X-RAY - ACUTE ABDOMINAL SERIES REASON FOR EXAM: Female, 75 years old. LLQ ABDOMEN PAIN X 2 WEEKS. PATIENT COMPLAINS OF SWELLING IN THAT AREA. TECHNIQUE: Single view of the chest. Supine, and erect view(s) of the abdomen were obtained. COMPARISON: Comparison is made with prior examination dated 03/30/2020. FINDINGS: Hyperinflation. Lungs are clear. Normal size heart. Normal mediastinum and severino. Normal visualized pulmonary arteries. There is atherosclerotic calcification of the aortic arch with tortuosity. There is a moderate amount of colonic fecal material. The soft tissue structures of the abdomen and pelvis are unremarkable. There are diffuse degenerative changes of the visualized lumbar spine. 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 RAD/Acute Abdomen Inc Chest IMPRESSION: Moderate amount of fecal material is seen throughout the colon. Electronically Signed: Roldan Garcia, at 10:40 EDT , Service support ,
[2020-04-08 10:16] LABS: ALB/GLOB Ratio 0.8 RATIO (0.9-2.4); AST(SGOT) 20 U/L (15-37); Alanine Aminotransfer ALT/SGPT 34 U/L (13-56); Albumin, Serum 3.4 g/dL (3.2-5.0); Alkaline Phosphatase 109 U/L (45-117); Anion Gap 8 (5-15); BUN 10 mg/dL (7-18); BUN/Creat Ratio 12.3 RATIO (10-20); Calcium,Total 8.6 mg/dL (8.5-10.1); Chloride 106 mmol/L (98-107); Creatinine, Serum 0.82 mg/dL (0.55-1.02); EST Glomerular Filtration Rate 73 mL/min (>60); Est Glom Filt Rate - Afr Amer 88 mL/min (>60); Estimated Creatinine Clearance 43.89 ml/min; Globulin 4.3 g/dL (2.2-4.2); Glucose 113 mg/dL (74-106); Lipase 45 U/L (73-393); Potassium 3.7 mmol/L (3.5-5.1); Protein, Total 7.7 g/dL (6.4-8.2); Sodium Level 139 mmol/L (136-145)
[2020-04-08 10:18] LABS: Color, Urine Yellow (Yellow); Glucose, Dipstick Normal (Normal); Ketone-Dipstick 5 mg/dl (Negative); Leukocyte Esterase-Dipstick 100 /ul (Negative); Nitrite-Dipstick Negative (Negative); Occult Blood-Urine Negative /ul (Negative); Protein-Dipstick Negative (Negative); Urine Bilirubin Dipstick Negative (Negative); Urine Clarity Clear (Clear); Urine Urobilinogen Normal (Normal)
[2020-04-08] MEDS: 0.9% Normal Saline 1,000 ML 1000 ML IV (10:20)
[2020-04-08] MEDS: Morphine 4 MG/ML Syringe IV (10:20)
[2020-04-08 10:31] LABS: Bacteria 1+ /hpf (None Seen); Squamous Epithelial Cells - UA 0-5 SEEN /hpf (5-10); White Blood Cells 25-50 SEEN /hpf (0-5)
[2020-04-08] MEDS: metroNIDAZOLE 500 MG Tablet PO (11:16)
[2020-04-08] MEDS: Ciprofloxacin 500 MG Tablet PO (11:16)
[2020-04-08 11:20] VITALS: BP 117/55; PULSE 72; RESP 18
== END 2020-04-08 11:21 | disposition home or self-care (01) ==
PROVIDERS: Emergency Provider Emergency Medicine; PCP Family Medicine
DX: N39.0 Urinary tract infection, site not specified (principal); R10.32 Left lower quadrant pain
CPT/HCPCS: 74022; 80053; 81001; 83690; 85025; 96361; 96374; 99285; J7030; A4216

== ENCOUNTER 2020-04-18 09:08 | Emergency (ER) | payer MEDICARE, SELFPAY ==
[2020-04-18 09:10] VITALS: BP 127/88; PULSE 85; RESP 17; TEMP 36.2; O2SAT 95; BMI 31.0
--- NOTE | 2020-04-18 09:25 | ED.VIS.GI ---
History of Present Illness Chief Complaint: Abd Pain Informant: Patient - Abdominal Pain/Flank Pain Onset: Days - 2 Context: Gradual Onset Timing: Continuous Quality: Aching Location: LLQ Current Severity: Moderate Maximum Severity: Moderate Worsened by: Nothing Relieved by: Nothing - Nausea/Vomiting/Emesis GI Symptom: Negative for: Nausea, Vomiting - Diarrhea/Melena/Hematochezia GI Symptom: Negative for: Diarrhea, Melena, Hematochezia Associated Symptoms: Negative for: Dysuria, Frequency, Hematuria, Urgency Narrative: Gradual onset of left-sided abdominal pain. Feels swollen there in those areas as well. No radiation into her back. No recent fevers or chills. No other illnesses. Has not had a bowel movement since the pain started. Prior tubal ligation without other abdominal surgeries in the past. She did have a colonoscopy, remembers being told she had some polyps but nothing else. Also has been diagnosed with diverticulosis once in the past. Past Medical History - Allergies and Home Meds Allergies/Adverse Reactions: Allergies aspirin Allergy (Verified 04/18/20 09:09) Angioedema, SOB, HIVES Iodinated Contrast Media [Iodinated Contrast Media - Oral and] Allergy (Verified 04/08/20 09:23) Hives shellfish derived Allergy (Verified 04/08/20 09:23) Hives strawberry Allergy (Verified 04/08/20 09:23) Hives Primary Care Physician: Jeff Diehl MD [Primary Care Provider] - Surgical History: - - Tubal ligation Smoking Status: Never smoker Alcohol: None Review of Systems General: Denies: Chills, Fever, Sweats Eyes: Denies: Visual changes - bilaterally, Diplopia ENT: Denies: Rhinorrhea, Sore throat Cardiovascular: Denies: Chest pain, Palpitations Respiratory: Denies: Dyspnea, Cough, Dyspnea on exertion Gastrointestinal: Reports: Abdominal pain. Denies: Nausea, Vomiting, Diarrhea, Melena, Hematochezia Genitourinary: Denies: Dysuria, Hematuria, Frequency Musculoskeletal: Denies: Myalgias, Neck pain, Back pain, Extremity Pain Skin: Denies: Rash, Wounds Neurological: Denies: Headache, Weakness, Numbness Physical Exam Vital Signs/Narrative: Vital Signs Temp Pulse Resp BP Pulse Ox 04/18/20 09:10 97.1 F L 85 17 127/88 H 95 Inital Vital Signs reviewed: Yes General: Well nourished, Well developed, No Acute Distress Head: Normocephalic, Atraumatic Eyes: Perrl, EOMI ENT: Moist mucous membranes, No rhinorrhea Neck: Supple, Nontender Cardiovascular: Regular rate, Regular rhythm, No murmurs Respiratory: No distress, CTA bilaterally, Chest nontender Abdomen: Soft, Nondistended, Normal bowel sounds, Tender - Left lower quadrant mostly. Less tender in left lateral mid abdomen and suprapubic region.. Negative for: Guarding, Rebound tenderness, Pulsatile mass Back: Nontender, Normal Inspection. Negative for: CVA tenderness Extremities: Nontender, No edema Skin: Normal color, No rash, No Trauma Neurological: Alert, Oriented x3, Cranial nerves II-XII grossly intact, Normal Strength, Normal Sensation, Normal Gait Psychological: Normal affect, Normal Mood Diagnostic/Tx/Re-eval Impressions Abdomen/Pelvis CT 04/18/20 09:47 IMPRESSION: Stable examination demonstrating increased markings in the anterior peritoneal fat anterior to the transverse colon extending into the region of the anterior abdominal wall. Electronically Signed: Roldan Garcia, at 10:24 EDT , Service support , 04/18/20 09:47 CT Abd [Abdomen/Pelvis without Cont] [CT] Stat Laboratory Results 04/18/20 04/18/20 04/18/20 09:30 09:30 10:45 WBC 8.4 RBC 4.73 Hgb 12.9 Hct 40.2 MCV 85.0 MCH 27.3 MCHC 32.1 RDW Std Deviation 43.2 RDW Coeff of Mary 13.9 Plt Count 429 MPV 9.8 Immature Gran % (Auto) 0.400 Neut % (Auto) 66.1 Lymph % (Auto) 22.0 [place] % (Auto) 7.3 Eos % (Auto) 3.5 Baso % (Auto) 0.7 Absolute Neuts (auto) 5.6 Absolute Lymphs (auto) 1.85 Nucleated RBC % 0 Sodium 139 Potassium 3.7 Chloride 104 Carbon Dioxide 30.0 Anion Gap 5 BUN 12 Creatinine 0.86 Estim Creat Clear Calc 41.85 Est GFR (MDRD) Af Amer 83 Est GFR (MDRD) Non-Af 69 BUN/Creatinine Ratio 13.9 Glucose 106 Calcium 8.9 Urine Color Yellow Urine Clarity Sl. Cloudy Urine pH 6.0 Ur Specific [place] 1.010 Urine Protein Negative Urine Glucose (UA) Normal Urine Ketones Negative Urine Occult Blood Negative Urine Nitrite Negative Urine Bilirubin Negative Urine Urobilinogen Normal Ur Leukocyte Esterase 100 H Urine RBC 0 SEEN Urine WBC 10-25 SEEN Ur Squamous Epith Cells 0-5 SEEN Urine Bacteria 1+ Urine Mucus 0 SEEN - Medical Decision Making Patient declined analgesics except for Tylenol, as well as prescriptions for analgesics even Bentyl. Her CT is only positive for a chronic finding which she is not in the location of her discomfort. Her urine is suspicious for infection, without a stone I am not sure how an infection is causing unilateral pelvic pain, and she does not have pyelonephritis. I will treat the urine infection with 3 days of Bactrim, and if she has persistent discomfort follow-up with her doctor which she is comfortable with. We discussed the possibility of this being some type of intestinal pain that did not show positive findings on CT. given the gradual onset of pain, low suspicion for torsion here. ED Disposition - Plan for ED Patient: Disposition: Home or Assisted Living Diagnosis: Left lower quadrant abdominal pain, Urinary tract infection Instructions: ED Abdominal Pain Unkn Cause Fem, ED CYSTITIS Female Adult Prescriptions: Smz/Tmp Ds [Bactrim Ds] 1 tab PO BID #6 tab Transmission Status: [id number] Referrals: Jeff Diehl MD [Primary Care Provider] - 3-5 Days if not improving
[2020-04-18] MEDS: Acetaminophen 500 MG Tablet 1000 MG PO (09:35)
[2020-04-18] MEDS: 0.9% Normal Saline 1,000 ML 1000 ML IV (09:35)
[2020-04-18 09:46] LABS: Absolute Lymphocyte Count 1.85 X10^3/uL (0.83-4.51); Absolute Neutrophil Count 5.6 X10^3/uL (2.0-7.7); Basophil# 0.06 X10^3/uL; Basophil% 0.7 % (0-1); Eosinophil# 0.29 X10^3/uL; Eosinophils% 3.5 % (0-5); Hematocrit 40.2 % (37-47); Hemoglobin 12.9 g/dL (12.0-15.0); Lymphocyte # 1.85 X10^3/ul (4.0); Mean Corp Hgb Conc 32.1 g/dL (32-36); Mean Corpuscular Hgb 27.3 pg (27.0-32.0); Mean Platelet Vol. 9.8 fl (6.2-12.0); Monocyte# 0.61 X10^3/uL; Monocyte% 7.3 % (0-10); NRBC Flagged by Analyzer 0 % (0-5); Neutrophil # 5.56 X10^3/uL (2.7-7.7); Neutrophil % 66.1 % (47-70); Platelet Count 429 K/mm3 (150-450); RBC Distribution Width CV 13.9 % (11.6-14.6); RBC Distribution Width SD 43.2 fl (35.1-43.9); Red Blood Count 4.73 M/mm3 (4.2-5.4); White Blood Count 8.4 K/mm3 (4.4-11.0)
--- NOTE | 2020-04-18 09:47 | CT_ITS ---
STUDY: CT ABDOMEN AND PELVIS WITHOUT CONTRAST REASON FOR EXAM: Female, 75 years old. ABD PAIN AND BLOATING X 2 DAYS RADIATION DOSAGE (If Supplied By Facility): CTDIvol = ( 10.87 ) mGy, DLP = ( 518.77 ) mGycm TECHNIQUE: Transaxial images were obtained from the dome of the diaphragm to the symphysis pubis without oral contrast, and without intravenous contrast. Sagittal and coronal images were reconstructed. Individualized dose optimization techniques were used for this CT. COMPARISON: Comparison is made with prior study dated 03/30/2020. FINDINGS: Stable minimal increased linear markings at the lung bases suggestive of mild scarring. Small left axillary lymph node. Coronary artery calcification. Normal liver. Normal gallbladder and extrahepatic biliary system. Normal spleen. Normal pancreas. Normal bilateral adrenal glands. Normal right kidney. Normal left kidney. Normal visualized stomach. Normal small intestine. There are multiple colonic diverticula consistent with diverticulosis. The patient is status post appendectomy. There is diffuse atherosclerotic calcification of the abdominal aorta, without a demonstrated aneurysm. Normal inferior vena cava. Normal retroperitoneum. Stable increased markings in the anterior peritoneal fat anterior to the transverse colon. This extends to the anterior abdominal wall. The urinary bladder is not adequately distended for assessment. Normal abdominal wall. There are diffuse degenerative changes of the visualized lumbar spine. CT/Abdomen/Pelvis without Cont IMPRESSION: Stable examination demonstrating increased markings in the anterior peritoneal fat anterior to the transverse colon extending into the region of the anterior abdominal wall. Electronically Signed: Roldan Garcia, at 10:24 EDT , Service support ,
[2020-04-18 09:56] LABS: Anion Gap 5 (5-15); BUN 12 mg/dL (7-18); BUN/Creat Ratio 13.9 RATIO (10-20); Calcium,Total 8.9 mg/dL (8.5-10.1); Chloride 104 mmol/L (98-107); Creatinine, Serum 0.86 mg/dL (0.55-1.02); EST Glomerular Filtration Rate 69 mL/min (>60); Est Glom Filt Rate - Afr Amer 83 mL/min (>60); Estimated Creatinine Clearance 41.85 ml/min; Glucose 106 mg/dL (74-106); Potassium 3.7 mmol/L (3.5-5.1); Sodium Level 139 mmol/L (136-145)
[2020-04-18 10:55] LABS: Mucous, Urine 0 SEEN /hpf (<or=2+); Red Blood Cells-Urine 0 SEEN /hpf (0-5)
[2020-04-18 11:02] LABS: Color, Urine Yellow (Yellow); Glucose, Dipstick Normal (Normal); Ketone-Dipstick Negative (Negative); Leukocyte Esterase-Dipstick 100 /ul (Negative); Nitrite-Dipstick Negative (Negative); Occult Blood-Urine Negative /ul (Negative); Protein-Dipstick Negative (Negative); Urine Bilirubin Dipstick Negative (Negative); Urine Clarity Sl. Cloudy (Clear); Urine Urobilinogen Normal (Normal)
[2020-04-18 11:13] LABS: Bacteria 1+ /hpf (None Seen); Squamous Epithelial Cells - UA 0-5 SEEN /hpf (5-10); White Blood Cells 10-25 SEEN /hpf (0-5)
[2020-04-18 12:40] VITALS: RESP 18
== END 2020-04-18 12:41 | disposition home or self-care (01) ==
PROVIDERS: Emergency Provider Emergency Medicine; PCP Family Medicine
DX: N39.0 Urinary tract infection, site not specified (principal); R10.32 Left lower quadrant pain; Z79.899 Other long term (current) drug therapy; Z98.51 Tubal ligation status; Z87.19 Personal history of other diseases of the digestive system
CPT/HCPCS: 74176; 80048; 81001; 85025; 96360; 99284; J7030; A4216

== ENCOUNTER 2020-10-03 10:21 | Outpatient (RCR) | payer MEDICARE, SELFPAY | END 2020-10-03 23:59 | LOC: IMMUN 10:21 | PROVIDERS: PCP Family Medicine; Visit Provider Family Medicine | DX: Z23 Encounter for immunization (principal) | CPT/HCPCS: 0011A; 0012A ==

== ENCOUNTER 2020-10-07 16:28 | Emergency (ER) | payer MEDICARE, SELFPAY ==
[2020-10-07 16:30] VITALS: BP 172/69; PULSE 91; RESP 16; TEMP 36.6; O2SAT 98; BMI 27.5
--- NOTE | 2020-10-07 16:48 | ED.VIS.GEN ---
History of Present Illness Chief Complaint: Allergic Reaction Onset: - - 30 min or so Context: Sudden Onset - relatively Timing: Continuous Quality: flushing/hot Location: face, chest Current Severity: Moderate Maximum Severity: Moderate Worsened by: nothing Relieved by: nothing Associated Symptoms: tongue feels numb and possibly swollen Narrative: Patient presents saying that her tongue feels numb and feels swollen although she is having no trouble talking and admits that she did not look at it in the mirror, but she went to urgent care and they thought she was having a life-threatening allergic reaction so they sent her to the ER for further evaluation. She states when this started just prior to arrival she was at home and has not left the house today. She presents around 4:30 PM. 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 She takes no medications. She used to take a statin but she stopped taking it about 2 weeks ago, and does not take lisinopril or anything else for blood pressure. She has had no edema in her extremities, dyspnea, chest discomfort, palpitations, lightheadedness, or syncope. She denies any [id number] medications or illicit substances or anything else unusual that is happened today that she could have been exposed to in her home. Her lives with her and is not having any of these issues. She states she does not have any discomfort, but the areas that are red feel warm/hot. She states things are a little better than they were initially, they did involve her upper extremities as well although that is gone now, and now her chest and face are only involved. She does not have any numbness or tingling or weakness in any extremity. She states that her fingers and palms feel little tight but admits that they appear normal. - Past Medical History (1) Hyperlipidemia Status: Chronic Past Medical History - Allergies and Home Meds Allergies/Adverse Reactions: Allergies aspirin Allergy (Verified 10/07/20 16:29) Angioedema, SOB, HIVES Iodinated Contrast Media [Iodinated Contrast Media - Oral and] Allergy (Verified 10/07/20 16:29) Hives shellfish derived Allergy (Verified 10/07/20 16:29) Hives strawberry Allergy (Verified 10/07/20 16:29) Hives Primary Care Physician: Jeff Diehl MD [Primary Care Provider] - Surgical History: - - Tubal ligation Lives: Spouse/ Significant Other Smoking Status: Never smoker Review of Systems General: Denies: Chills, Fever, Sweats Eyes: Denies: Visual changes - bilaterally, Diplopia ENT: Reports: - - facial flushing, - - tongue numbness. Denies: Rhinorrhea, Sore throat Cardiovascular: Denies: Chest pain, Palpitations Respiratory: Denies: Dyspnea, Cough, Dyspnea on exertion Gastrointestinal: Denies: Abdominal pain, Nausea, Vomiting, Diarrhea, Melena, Hematochezia Genitourinary: Denies: Dysuria, Hematuria, Frequency Musculoskeletal: Denies: Neck pain, Back pain, Swelling, Extremity Pain Skin: Reports: Rash - nonpruritic flushing -- see HPI. Denies: Wounds Neurological: Reports: Numbness - tongue only, nonlateralizing. Denies: Headache, Weakness Physical Exam Vital Signs/Narrative: Vital Signs Temp Pulse Resp BP Pulse Ox 10/07/20 16:30 97.8 F 91 16 172/69 H 98 Inital Vital Signs reviewed: Yes General: Well nourished, Well developed, No Acute Distress - well-appearing. normal voice. Head: Normocephalic, Atraumatic Eyes: Perrl, EOMI ENT: Moist mucous membranes, No rhinorrhea, - - Tongue is normal-appearing without edema. No asymmetry. Is midline. No trismus or hot potato voice. No sublingual edema or fullness. Posterior oropharynx is normal. No stridor. Face is flushed, nontender and blanches, without swelling. Neck: Supple, Nontender, No lymphadenopathy, No JVD Cardiovascular: Regular rate, Regular rhythm, No murmurs. Negative for: Tachycardia Respiratory: No distress, CTA bilaterally, Chest nontender Abdomen: Soft, Nontender, Nondistended, Normal bowel sounds Back: Nontender, Normal Inspection Extremities: Nontender, No edema Skin: No rash, No Trauma. Negative for: Normal color - Blanching erythema upper chest and face, otherwise skin exam normal. No urticaria, petechia, or other rash. Neurological: Alert, Oriented x3, Cranial nerves II-XII grossly intact, Normal Strength, Normal Sensation, Normal Gait Psychological: Normal affect, Normal Mood Diagnostic/Tx/Re-eval Laboratory Tests 10/07/20 10/07/20 Range/Units 16:34 16:34 WBC 8.0 (4.4-11.0) K/mm3 RBC 5.06 (4.2-5.4) M/mm3 Hgb 14.0 (12.0-15.0) g/dL Hct 43.4 (37-47) % MCV 85.8 (81-99) fL MCH 27.7 (27.0-32.0) pg MCHC 32.3 (32-36) g/dL RDW Std Deviation 47.8 H (35.1-43.9) fl RDW Coeff of Mary 15.1 H (11.6-14.6) % Plt Count 499 H (150-450) K/mm3 MPV 9.9 (6.2-12.0) fl Immature Gran % (Auto) 0.200 (0.0-0.9) % Neut % (Auto) 64.1 (47-70) % Lymph % (Auto) 23.4 (19-41) % [place] % (Auto) 9.0 (0-10) % Eos % (Auto) 2.4 (0-5) % Baso % (Auto) 0.9 (0-1) % Absolute Neuts (auto) 5.2 (2.0-7.7) X10^3/uL Absolute Lymphs (auto) 1.88 (0.83-4.51) X10^3/uL Nucleated RBC % 0 (0-5) % Sodium 140 (136-145) mmol/L Potassium 3.6 (3.5-5.1) mmol/L Chloride 105 (98-107) mmol/L Carbon Dioxide 31.0 (21.0-32.0) mmol/L Anion Gap 4 L (5-15) BUN 8 (7-18) mg/dL Creatinine 0.90 (0.55-1.02) mg/dL Estim Creat Clear Calc 48.07 ml/min Est GFR (MDRD) Af Amer 78 (>60) mL/min Est GFR (MDRD) Non-Af 65 (>60) mL/min BUN/Creatinine Ratio 8.8 L (10-20) RATIO Glucose 85 (74-106) mg/dL Calcium 9.0 (8.5-10.1) mg/dL - Medical Decision Making Patient does not have objective angioedema of any structure in the face or oral cavity. She appears to be flushed and has a blood pressure in the 170s. She states that is very high for her. She is not anaphylactic; she does not have tachycardia, edema, hypotension, lightheadedness/syncope, or any other obvious sign of an allergic reaction except for the facial and chest erythema that is nonpruritic. Therefore initially, she was given hydralazine to bring her systolic blood pressure down. This did bring her pressure down to 140/65, however she did not feel any different. I had the patient walk to the bathroom so she could look in the mirror at her own tongue. She states that it is mildly swollen compared to normal. Her had a difficult time appreciating if it was any different than normal. Therefore, she was given Solu-Medrol, Benadryl, and Pepcid IV and observed, given the chance/possibility of an allergic reaction causing this. On reevaluation, she states that the swelling is down and the numbness is just at the tip of her tongue and is much improved. She is still talking normally and still has facial and chest flushing that is similar. She then states that she has had this before except for all of the flushing. She states in the past whenever she has had an allergic reaction to something it starts off with tongue swelling and numbness just like this. I discussed admitting her to the hospital for observation, given that it is evening and the dangers of angioedema if it gets worse. She states that she is well aware of all this, but since she has had this in the past and when it improves like it has today, it has never gotten worse, [place] around the corner from the hospital, she is comfortable going home and not being admitted, states she will return if worse which we discussed, and is comfortable with a prescription for a few days of prednisone. ED Disposition - Plan for ED Patient: Disposition: Home or Assisted Living Diagnosis: Acute allergic reaction, Angioedema Instructions: ED Angioedema Prescriptions: Prednisone [Deltasone] 40 mg PO DAILY #6 tab Transmission Status: Pending to [facility]/pharmacy #[id number] Referrals: Jeff Diehl MD [Primary Care Provider] - 3-5 Days (Or return to the ER immediately if worse)
[2020-10-07 16:56] LABS: Absolute Lymphocyte Count 1.88 X10^3/uL (0.83-4.51); Absolute Neutrophil Count 5.2 X10^3/uL (2.0-7.7); Basophil# 0.07 X10^3/uL; Basophil% 0.9 % (0-1); Eosinophil# 0.19 X10^3/uL; Eosinophils% 2.4 % (0-5); Hematocrit 43.4 % (37-47); Lymphocyte # 1.88 X10^3/ul (4.0); Lymphocyte % 23.4 % (19-41); Mean Corp Hgb Conc 32.3 g/dL (32-36); Mean Corpuscular Hgb 27.7 pg (27.0-32.0); Mean Corpuscular Volume 85.8 fL (81-99); Mean Platelet Vol. 9.9 fl (6.2-12.0); Monocyte# 0.72 X10^3/uL; NRBC Flagged by Analyzer 0 % (0-5); Neutrophil # 5.15 X10^3/uL (2.7-7.7); Neutrophil % 64.1 % (47-70); Platelet Count 499 K/mm3 (150-450); RBC Distribution Width CV 15.1 % (11.6-14.6); RBC Distribution Width SD 47.8 fl (35.1-43.9); Red Blood Count 5.06 M/mm3 (4.2-5.4)
[2020-10-07] MEDS: hydrALAZINE 20 MG/ML Vial 10 MG IV (16:57)
[2020-10-07 17:05] LABS: Anion Gap 4 (5-15); BUN 8 mg/dL (7-18); BUN/Creat Ratio 8.8 RATIO (10-20); Chloride 105 mmol/L (98-107); EST Glomerular Filtration Rate 65 mL/min (>60); Est Glom Filt Rate - Afr Amer 78 mL/min (>60); Estimated Creatinine Clearance 48.07 ml/min; Glucose 85 mg/dL (74-106); Potassium 3.6 mmol/L (3.5-5.1); Sodium Level 140 mmol/L (136-145)
[2020-10-07] MEDS: DiphenhydrAMINE 50 MG/ML Syringe 25 MG IV (18:13)
[2020-10-07] MEDS: MethylPREDNISolone 125 MG/2 ML Vial IV (18:13)
[2020-10-07] MEDS: Famotidine 200 MG/20 ML MDV 20 MG in 0.9% Normal Saline (Pres. free 8 ML 300 MG IV (18:14)
[2020-10-07 18:24] VITALS: BP 140/65; PULSE 98
[2020-10-07 19:08] VITALS: PULSE 86; RESP 18; TEMP 36.6
== END 2020-10-07 19:09 | disposition home or self-care (01) ==
PROVIDERS: Emergency Provider Emergency Medicine; PCP Family Medicine
DX: T78.3XXA Angioneurotic edema, initial encounter (principal); E78.5 Hyperlipidemia, unspecified; Z79.899 Other long term (current) drug therapy
CPT/HCPCS: 80048; 85025; 96374; 96375; 99284; A4216; J3490

== ENCOUNTER 2021-01-07 06:16 | Emergency (ER) | payer MEDICARE, SELFPAY ==
[2021-01-07 06:17] VITALS: BP 179/85; PULSE 80; RESP 18; TEMP 36; O2SAT 96; BMI 31.4
--- NOTE | 2021-01-07 06:34 | EDS_ITS ---
HPI <Dr. Jon Mccormick DO - Last Filed: 01/07/21 06:58> History of Present Illness Chief Complaint: Abd Pain Informant: patient Narrative Narrative: 75-year-old female states that approximately 36 hours ago she was attempting to pull out a very tenacious big weed when she fell backwards onto her back. She states that she struck her head and felt woozy for several hours. She developed the pain on the right lower ribs and lateral right abdomen. States it hurts to move. It hurts to touch. She denies any bruising or lesions. She denies any difficulty breathing other than painful respirations PFSH <Dr. Jon Mccormick DO - Last Filed: 01/07/21 06:58> [facility] Medical History (Updated 01/07/21 @ 12:[address] Ray Sapp MD) GERD (gastroesophageal reflux disease) Hyperlipidemia Home Medications pravastatin 20 mg PO DAILY 10/07/18 [History Last Taken Unknown] epinephrine 0.3 mg IJ X1 PRN #2 auto.injct 01/13/19 [Rx Last Taken Unknown] hydrocodone-acetaminophen 1 tab PO Q6H PRN PRN 3 Days #12 tablet 01/07/21 [Rx Last Taken Unknown] prednisone 40 mg PO DAILY PRN 01/07/21 [History Last Taken Unknown] Allergy/AdvReac Type Severity Reaction Status Date / Time aspirin Allergy Angioedema, Verified 10/07/20 16:29 SOB, HIVES Iodinated Contrast Media Allergy Hives Verified 10/07/20 16:29 [Iodinated Contrast Media - Oral and] shellfish derived Allergy Hives Verified 10/07/20 16:29 strawberry Allergy Hives Verified 10/07/20 16:29 Social History (Updated 01/07/21 @ 06:[address] Jon Mccormick DO) Smoking Status: Never smoker substance use type: does not use ROS <Dr. Jon Mccormick DO - Last Filed: 01/07/21 06:58> ROS ED Constitutional Constitutional ED: Denies chills or weight loss Eyes Eyes: Denies change in vision or diplopia ENT ENT ED: Denies ear pain, rhinorrhea or sore throat Cardiovascular Cardiovascular: Reports chest pain; Denies orthopnea, palpitations or racing heartbeat Respiratory/Chest Respiratory/Chest: Denies cough, dyspnea or orthopnea Gastrointestinal Gastrointestinal: Reports abdominal pain; Denies diarrhea, nausea or vomiting Genitourinary Genitourinary ED: Denies dysuria, hematuria or urinary frequency Musculoskeletal Musculoskeletal: Denies arthralgias or myalgias Integumentary Denies abscess or rash Neurologic Neurologic: Denies headache(s) or weakness Psychiatric Psychiatric: Denies anxiety, depression, suicidal ideation or suicidal thoughts Endocrine Endocrinology: Denies polydipsia, polyphagia or polyuria Allergic/Immunologic Allergic/Immunologic ED: Denies mouth swelling, tongue swelling or urticaria EXAM <Dr. Jon Mccormick DO - Last Filed: 01/07/21 06:58> Physical Exam Const Vital Signs: 01/07/21 06:17 01/07/21 07:45 01/07/21 10:51 Temperature 96.8 F L Temperature Source Temporal Pulse Rate 80 105 H 59 L Respiratory Rate 18 16 16 Blood Pressure 179/85 H 142/93 H 143/68 H Blood Pressure Mean 116 109 93 Pulse Ox 96 97 98 Oxygen Delivery Method Room Air Room Air Room Air Positive well nourished and well developed General Appearance ED: well developed HEENT Reports normocephalic, head/scalp atraumatic and moist mucous membranes Eyes PERRL and EOMs intact bilaterally Neck no lymphadenopathy, supple and no JVD Chest Wall Negative for palpation of chest normal Chest Narrative: Tender to palpation over the right lateral and anterior lower ribs. No palpable deformities or crepitance. Resp normal respiratory effort and clear to auscultation bilaterally Cardio regular rate, regular rhythm and no murmurs GI non-tender GI Narrative: Tender to palpation over the patient's oblique musculature Palpation: soft Back/Spine no CVA tenderness and normal ROM Extremity normal to inspection General Extremety ED: Negative for edema General Extremity: Negative for edema Neuro oriented x3 and CN's II-XII intact bilaterally Sensorium / Orientation: alert Motor Exam: strength 5/5 throughout Psych mental status grossly normal Mood & Affect: Negative for depressed or tearful Skin no rashes or lesions noted and no wounds <Dr. Ray Sapp MD - Last Filed: 01/07/21 12:29> Physical Exam Const Vital Signs: 01/07/21 06:17 01/07/21 07:45 01/07/21 10:51 Temperature 96.8 F L Temperature Source Temporal Pulse Rate 80 105 H 59 L Respiratory Rate 18 16 16 Blood Pressure 179/85 H 142/93 H 143/68 H Blood Pressure Mean 116 109 93 Pulse Ox 96 97 98 Oxygen Delivery Method Room Air Room Air Room Air [facility] <Dr. Jon Mccormick, DO - Last Filed: 01/07/21 06:58> [facility] Narrative Medical decision making narrative: CT of the head and abdomen pelvis will be obtained. Radiography Diagnostic Testing: Radiology Impression Abdomen/Pelvis CT 01/07/21 06:56 IMPRESSION: 1. 4.5 cm cystic mass left ovary worrisome for a physiologic cyst, par ovarian cyst, or cystadenoma. Correlation with pelvic ultrasound would be useful. Follow-up ultrasound is recommended in one year. 2. 4 x 8 cm area of fluid within the prevesical space of Retzius and inferior to multiple loops of small bowel of uncertain etiology and significance but not felt to represent acute hemoperitoneum. 3. Sigmoid diverticulosis without diverticular. N.B. : The above information has been verbally conveyed by Roger Palomino MD to Jon Mccormick MD, on 01/07/2021 08:38:08 (ET). Electronically Signed: Roger Palomino MD at 8:39 EDT Tel , Service support , ADDENDUM: 01/07/21 0846 IMPRESSION: 1. 4.5 cm cystic mass left ovary worrisome for a physiologic cyst, par ovarian cyst, or cystadenoma. Correlation with pelvic ultrasound would be useful. Follow-up ultrasound is recommended in one year. 2. 4 x 8 cm area of fluid within the prevesical space of Retzius and inferior to multiple loops of small bowel of uncertain etiology and significance but not felt to represent acute hemoperitoneum. 3. Sigmoid diverticulosis without diverticular. N.B. : The above information has been verbally conveyed by Roger Palomino MD to Jon Mccormick MD, on 01/07/2021 08:38:08 (ET). Electronically Signed: Roger Palomino MD at 8:39 EDT Tel , Service support , Brain CT 01/07/21 06:56 IMPRESSION: Normal unenhanced CT scan of the brain. Electronically Signed: Roger Palomino MD at 8:21 EDT Tel , Service support , Transvaginal US 01/07/21 08:55 IMPRESSION: 1. Some endometrial fluid. Correlation with hysteroscopy may be useful to exclude endometrial mass. 2. 4 cm physiologic cyst, par ovarian cyst, or cystadenoma the left ovary. Follow-up ultrasound is recommended in one year. 3. Echogenic free fluid superior and anterior to the uterus possibly within the space of Retzius or intraperitoneal cavity worrisome for hemorrhagic or purulent fluid. This corresponds to the fluid seen on CT. This is of uncertain etiology. Electronically Signed: Roger Palomino MD at 11:17 EDT Tel , Service support , <Dr. Ray Sapp MD - Last Filed: 01/07/21 12:29> [facility] Narrative Medical decision making narrative: I took over care of this patient. Her head CT came back negative for any acute but her abdomen/pelvis CT showed fluid in areas in her lower abdomen that do not appear to be from injury. There is a cyst versus mass in the left ovary, and a loculated fluid collection that does not appear to be intraperitoneal that is anterior to the bladder while the patient is lying supine. I examined her. She is tender in the right rib cage where there was no fracture seen on the abdomen CT, and a little in the abdominal wall just caudal to this area but the rest of her exam is benign including the lack of any tenderness in the pelvic area. Given the nonspecific findings that are likely incidental and were not there 6 months ago according to the radiologist, and after discussing with the patient, we obtained a transvaginal ultrasound to try to characterize these collections further. The findings are below which I discussed with the patient. At this time I think she is stable to be discharged home. She was prescribed some pain medication, and she does not have an KNOT CUTTER so I referred her to the on-call for further evaluation. Patient is comfortable with this plan. Radiography Diagnostic Testing: Radiology Impression Abdomen/Pelvis CT 01/07/21 06:56 IMPRESSION: 1. 4.5 cm cystic mass left ovary worrisome for a physiologic cyst, par ovarian cyst, or cystadenoma. Correlation with pelvic ultrasound would be useful. Follow-up ultrasound is recommended in one year. 2. 4 x 8 cm area of fluid within the prevesical space of Retzius and inferior to multiple loops of small bowel of uncertain etiology and significance but not felt to represent acute hemoperitoneum. 3. Sigmoid diverticulosis without diverticular. N.B. : The above information has been verbally conveyed by Roger Palomino MD to Jon Mccormick MD, on 01/07/2021 08:38:08 (ET). Electronically Signed: Roger Palomino MD at 8:39 EDT Tel , Service support , ADDENDUM: 01/07/21 0846 IMPRESSION: 1. 4.5 cm cystic mass left ovary worrisome for a physiologic cyst, par ovarian cyst, or cystadenoma. Correlation with pelvic ultrasound would be useful. Follow-up ultrasound is recommended in one year. 2. 4 x 8 cm area of fluid within the prevesical space of Retzius and inferior to multiple loops of small bowel of uncertain etiology and significance but not felt to represent acute hemoperitoneum. 3. Sigmoid diverticulosis without diverticular. N.B. : The above information has been verbally conveyed by Roger Palomino MD to Jon Mccormick MD, on 01/07/2021 08:38:08 (ET). Electronically Signed: Roger Palomino MD at 8:39 EDT Tel , Service support , Brain CT 01/07/21 06:56 IMPRESSION: Normal unenhanced CT scan of the brain. Electronically Signed: Roger Palomino MD at 8:21 EDT Tel , Service support , Transvaginal US 01/07/21 08:55 IMPRESSION: 1. Some endometrial fluid. Correlation with hysteroscopy may be useful to exclude endometrial mass. 2. 4 cm physiologic cyst, par ovarian cyst, or cystadenoma the left ovary. Follow-up ultrasound is recommended in one year. 3. Echogenic free fluid superior and anterior to the uterus possibly within the space of Retzius or intraperitoneal cavity worrisome for hemorrhagic or purulent fluid. This corresponds to the fluid seen on CT. This is of uncertain etiology. Electronically Signed: Roger Palomino MD at 11:17 EDT Tel , Service support , Discharge Plan Triage Chief Complaint: Abd Pain ED Provider: Jon Mccormick Dx/Rx/DC Orders Clinical Impression: Abdominal muscle strain, Chest wall muscle strain, Unspecified ovarian cyst, left side Instructions: ED Muscle Strain, Abdomen Prescriptions: New hydrocodone-acetaminophen [hydrocodone-acetaminophen] 1 TABLET tablet 1 tab PO Q6H PRN PRN (Reason: Pain) 3 Days Qty: 12 RF: 0 No Action pravastatin 20 MG tablet 20 mg PO DAILY RF: 0 epinephrine 0.3 MG/0.3 ML auto-injector 0.3 mg IJ X1 PRN (Reason: Anaphylaxis) Qty: 2 RF: 1 prednisone 20 MG tablet 40 mg PO DAILY PRN (Reason: Rash) RF: 0 Primary Care Provider: Jeff Diehl Referrals: Flory Jorge MD [STAFF PHYSICIAN] - (call for follow up) Jeff Diehl MD [Primary Care Provider] - 1 Week if not improving Disposition Disposition: Home, self care
--- NOTE | 2021-01-07 06:56 | CT_ITS ---
STUDY: CT BRAIN WITHOUT CONTRAST REASON FOR EXAM: Female, 75 years old. injury RADIATION DOSAGE (If Supplied By Facility): CTDIvol = ( 44.99 ) mGy, DLP = ( 812.98 ) mGycm TECHNIQUE: Transaxial CT imaging of the brain was performed without administration of intravenous contrast material. Individualized dose optimization techniques were used for this CT. COMPARISON: No relevant priors. FINDINGS: Normal soft tissue structures. Normal calvarium. Normal size ventricles and extra-axial spaces for the patient''s age. Normal white matter tracts of the cerebral hemispheres. Normal basal ganglia and thalami. Normal brainstem. Normal cerebellum. There is no intracranial hemorrhage. There are no findings of an acute ischemic infarction. Normal visualized paranasal sinuses. CT/Brain/Head without Contrast IMPRESSION: Normal unenhanced CT scan of the brain. Electronically Signed: Roger Palomino MD at 8:21 EDT Tel , Service support ,
--- NOTE | 2021-01-07 06:56 | CT_ITS ---
STUDY: CT ABDOMEN AND PELVIS WITHOUT CONTRAST REASON FOR EXAM: Female, 75 years old. blunt trauma RADIATION DOSAGE (If Supplied By Facility): CTDIvol = ( 9.32 ) mGy, DLP = ( 458.72 ) mGycm TECHNIQUE: Transaxial images were obtained from the dome of the diaphragm to the symphysis pubis without oral contrast, and without intravenous contrast. Sagittal and coronal images were reconstructed. Individualized dose optimization techniques were used for this CT. COMPARISON: 04/18/2020 FINDINGS: The visualized lung bases are unremarkable. The visualized portions of the heart are within normal limits. Normal liver. Normal gallbladder and extrahepatic biliary system. Normal spleen. Normal pancreas. Normal bilateral adrenal glands. Normal right kidney. Normal left kidney. Normal visualized stomach. Normal small intestine. There are multiple colonic diverticula consistent with diverticulosis. There is non-visualization of the appendix. Normal abdominal aorta. Normal inferior vena cava. Normal retroperitoneum. Normal urinary bladder. 4.5 cm round mass of water attenuation of the left ovary consistent with a physiologic cyst, par ovarian cyst, or cystadenoma. Follow-up ultrasound is recommended in one year. 4 x 8 cm area of fluid attenuation within the prevesical space of Retzius and inferior to multiple loops of bowel of uncertain etiology and significance. Normal abdominal wall. Normal osseous structures. CT/Abdomen/Pelvis without Cont IMPRESSION: 1. 4.5 cm cystic mass left ovary worrisome for a physiologic cyst, par ovarian cyst, or cystadenoma. Correlation with pelvic ultrasound would be useful. Follow-up ultrasound is recommended in one year. 2. 4 x 8 cm area of fluid within the prevesical space of Retzius and inferior to multiple loops of small bowel of uncertain etiology and significance but not felt to represent acute hemoperitoneum. 3. Sigmoid diverticulosis without diverticular. N.B. : The above information has been verbally conveyed by Roger Palomino MD to Jon Mccormick MD, on 01/07/2021 08:38:08 (ET). Electronically Signed: Roger Palomino MD at 8:39 EDT Tel , Service support ,
[2021-01-07] MEDS: HYDROcodone Bitartrate/Apap 5/325 Tablet PO (07:20)
[2021-01-07 07:45] VITALS: BP 142/93; PULSE 105; RESP 16; O2SAT 97
--- NOTE | 2021-01-07 08:55 | US_ITS ---
STUDY: ULTRASOUND OF THE FEMALE PELVIS - COMPLETE REASON FOR EXAM: Female, 75 years old. mass LMP: TECHNIQUE: Transvaginal TECHNICAL QUALITY: Adequate. COMPARISON: CT earlier today FINDINGS: The uterus is anteverted and is in a midline position. The uterus measures 5.7 x 3.2 x 2.2 cm. There is a Nabothian cyst of the cervix. The endometrium measures 6 mm in thickness, and is fluid distended. There is no demonstrated endometrial mass. There is no demonstrated myometrial mass. I.U.D. - The patient does not have an I.U.D. The right ovary is visualized. The right ovary measures 3.2 x 2.5 x 2.2 cm. There is no right ovarian cyst or ovarian mass. There is no visualized right adnexal mass or complex lesion. There is normal arterial and normal venous vascularity. The left ovary is visualized. The left ovary measures 5.4 x 5.2 x 4.5 cm. 4 cm oval anechoic mass with increased through transmission the left ovary consistent with a physiologic cyst, par ovarian cyst, or cystadenoma. There is no visualized left adnexal mass or complex lesion. There is normal arterial and normal venous vascularity. There is no fluid in the cul-de-sac. Hour, there is echogenic fluid anterior and superior to the uterus worrisome for hemorrhagic or purulent fluid. The pre void volume of the bladder was ml. The post void volume of the bladder was ml. Polycystic ovary disease: No. US/Transvaginal Non- IMPRESSION: 1. Some endometrial fluid. Correlation with hysteroscopy may be useful to exclude endometrial mass. 2. 4 cm physiologic cyst, par ovarian cyst, or cystadenoma the left ovary. Follow-up ultrasound is recommended in one year. 3. Echogenic free fluid superior and anterior to the uterus possibly within the space of Retzius or intraperitoneal cavity worrisome for hemorrhagic or purulent fluid. This corresponds to the fluid seen on CT. This is of uncertain etiology. Electronically Signed: Roger Palomino MD at 11:17 EDT Tel , Service support ,
[2021-01-07 10:51] VITALS: BP 143/68; PULSE 59; RESP 16; O2SAT 98
[2021-01-07 12:43] VITALS: BP 155/74; PULSE 76; RESP 18; O2SAT 97
== END 2021-01-07 12:44 | disposition home or self-care (01) ==
PROVIDERS: Emergency Provider Emergency Medicine; PCP Family Medicine
DX: S39.011A Strain of muscle, fascia and tendon of abdomen, initial encounter (principal); S29.011A Strain of muscle and tendon of front wall of thorax, initial encounter; S09.90XA Unspecified injury of head, initial encounter; X50.9XXA Other and unspecified overexertion or strenuous movements or postures, initial encounter; Y93.H2 Activity, gardening and landscaping; Y92.9 Unspecified place or not applicable; Y99.9 Unspecified external cause status; N83.202 Unspecified ovarian cyst, left side; E78.5 Hyperlipidemia, unspecified; K21.9 Gastro-esophageal reflux disease without esophagitis; Z79.52 Long term (current) use of systemic steroids; Z79.899 Other long term (current) drug therapy
CPT/HCPCS: 70450; 74176; 76830; 99283; A4216

== ENCOUNTER 2021-01-08 23:34 | Emergency (ER) | payer MEDICARE, SELFPAY ==
[2021-01-07 06:17] VITALS: BMI 31.4
[2021-01-08 23:35] VITALS: BP 126/102; PULSE 101; RESP 20; TEMP 37.5; O2SAT 96; BMI 30.6
--- NOTE | 2021-01-09 00:05 | CT_ITS ---
STUDY: CT ABDOMEN AND PELVIS WITH CONTRAST REASON FOR EXAM: Female, 75 years old. Pain RADIATION DOSAGE (If Supplied By Facility): CTDIvol = ( 15.22 ) mGy, DLP = ( 968.78 ) mGycm TECHNIQUE: Transaxial images were obtained from the dome of the diaphragm to the symphysis pubis without oral contrast. IV 100mL Isovue-370 was administered. Sagittal and coronal images were reconstructed. Individualized dose optimization techniques were used for this CT. COMPARISON: 01/07/2021. FINDINGS: Bilateral lower lobe atelectasis, remainder of the lung bases are clear. The visualized portions of the heart are within normal limits. Small left liver lobe cyst measuring 1.1 x 1.0 cm. Tiny stone within the dependent gallbladder near the fundus. Normal spleen. Normal pancreas. Normal bilateral adrenal glands. Normal right kidney. Normal left kidney. Normal visualized stomach. There is diffuse mesenteric edema. There is corresponding borderline thickening of the bailey of the small bowel which may indicate enteritis. Diverticulosis throughout the colon with no focal signs of diverticulitis. There is non-visualization of the appendix. There is diffuse atherosclerotic calcification of the abdominal aorta, without a demonstrated aneurysm. Normal inferior vena cava. Normal retroperitoneum. Normal urinary bladder. Anteverted uterus. Left adnexal cyst measuring approximately 5.3 x 5.5 cm. Posterior high density which could represent soft tissue versus proteinaceous debris versus hemorrhage. Additional smaller cysts noted posteriorly averaging approximately 9 mm. This reveals slightly high density. This is stable in the interval. Small amount of free fluid within the anterior pelvis. The cecum is oriented anteriorly just posterior to the anterior abdominal wall. This in combination with multiple small bowel loops representing the previously described echogenic free fluid. On current examination, there is trace amount of free fluid intermingled with bowel loops. Normal abdominal wall. Osteopenia along with multilevel degenerative disease. CT/Abdomen/Pelvis W IV Cont ONLY IMPRESSION: Left adnexal complex cyst versus cystic neoplasm, described on previous CT abdomen and pelvis and ultrasound of the pelvis dated 01/07/2021. These are stable in the interval. Previously described echogenic fluid collection at the anterior pelvis/space of the talus represents a combination of cecal distention and multiple small bowel loops with trace amount of fluid between the loops. In the context mesenteric edema) Distention of the small bowel loops, cannot exclude enteritis. Clinical correlation recommended. Diverticulosis with no signs of diverticulitis. No signs of bowel obstruction. Small gallstones, remainder of abdominal viscera are unremarkable. Electronically Signed: Ivy Patel MD at 1:49 EDT , Service support ,
[2021-01-09] MEDS: 0.9% Normal Saline 1,000 ML 1000 ML IV (00:16)
[2021-01-09] MEDS: Morphine 4 MG/ML Syringe IV (00:17)
[2021-01-09 00:24] LABS: Absolute Lymphocyte Count 1.21 X10^3/uL (0.83-4.51); Basophil# 0.07 X10^3/uL; Basophil% 0.9 % (0-1); Eosinophil# 0.32 X10^3/uL; Eosinophils% 3.9 % (0-5); Hematocrit 40.1 % (37-47); Hemoglobin 12.9 g/dL (12.0-15.0); Lymphocyte # 1.21 X10^3/ul (0.83-4.51); Lymphocyte % 14.9 % (19-41); Mean Corp Hgb Conc 32.2 g/dL (32-36); Mean Corpuscular Hgb 27.3 pg (27.0-32.0); Mean Platelet Vol. 9.6 fl (6.2-12.0); Monocyte# 0.52 X10^3/uL; Monocyte% 6.4 % (0-10); NRBC Flagged by Analyzer 0 % (0-5); Neutrophil # 5.98 X10^3/uL (2.7-7.7); Neutrophil % 73.7 % (47-70); Platelet Count 381 K/mm3 (150-450); RBC Distribution Width CV 13.9 % (11.6-14.6); RBC Distribution Width SD 43.4 fl (35.1-43.9); Red Blood Count 4.72 M/mm3 (4.2-5.4); White Blood Count 8.1 K/mm3 (4.4-11.0)
[2021-01-09 00:35] VITALS: RESP 16
[2021-01-09 00:41] LABS: ALB/GLOB Ratio 0.7 RATIO (0.9-2.4); AST(SGOT) 21 U/L (15-37); Alanine Aminotransfer ALT/SGPT 22 U/L (13-56); Albumin, Serum 3.4 g/dL (3.2-5.0); Alkaline Phosphatase 122 U/L (45-117); Anion Gap 8 (5-15); BUN 12 mg/dL (7-18); BUN/Creat Ratio 14.6 RATIO (10-20); Chloride 105 mmol/L (98-107); Creatinine, Serum 0.82 mg/dL (0.55-1.02); EST Glomerular Filtration Rate 72 mL/min (>60); Est Glom Filt Rate - Afr Amer 87 mL/min (>60); Estimated Creatinine Clearance 46.11 ml/min; Globulin 4.6 g/dL (2.2-4.2); Glucose 117 mg/dL (74-106); Lipase 68 U/L (73-393); Potassium 3.7 mmol/L (3.5-5.1); Sodium Level 140 mmol/L (136-145)
[2021-01-09 01:10] LABS: Bacteria 0 SEEN /hpf (None Seen); Mucous, Urine 0 SEEN /hpf (<or=2+); Red Blood Cells-Urine 0 SEEN /hpf (0-5); Squamous Epithelial Cells - UA 0 SEEN /hpf (5-10)
[2021-01-09 01:17] LABS: Color, Urine Yellow (Yellow); Glucose, Dipstick Normal (Normal); Ketone-Dipstick Negative (Negative); Leukocyte Esterase-Dipstick 100 /ul (Negative); Nitrite-Dipstick Negative (Negative); Occult Blood-Urine Negative /ul (Negative); Protein-Dipstick Negative (Negative); Urine Bilirubin Dipstick Negative (Negative); Urine Clarity Clear (Clear); Urine Urobilinogen Normal (Normal); Urine pH 6.5 (5.0 - 8.0)
[2021-01-09 01:29] LABS: White Blood Cells 0-5 SEEN /hpf (0-5)
[2021-01-09 02:08] VITALS: PULSE 86; RESP 16; O2SAT 95
--- NOTE | 2021-01-09 02:23 | ED.VIS.GI ---
HPI HPI - GI History of Present Illness Chief Complaint: Abd Pain Abdominal Pain/Flank Pain Onset: Today Context: Sudden Onset Timing: Continuous Quality: Burning Location: RUQ and RLQ Worsened by: Nothing Relieved by: - (Standing) Nausea/Vomiting/Emesis GI Symptom: Negative for Nausea and Vomiting Diarrhea/Melena/Hematochezia GI Symptom: Negative for Diarrhea, Melena and Hematochezia Associated Symptoms Associated Symptoms: Negative for Dysuria and Hematuria Narrative Narrative: Patient presents with abdominal pain that began tonight. Patient states the pain began rather suddenly. Patient states the pain is worse over the right upper quadrant. Patient states it radiates into the right lower quadrant. Patient describes the pain as burning. Patient states the pain is better with standing. Patient states she does get slightly dizzy with standing. Patient denies any nausea or vomiting. Patient denies any diarrhea, melena, or hematochezia. Patient denies any dysuria or hematuria. Patient had a noncontrast CT of the abdomen and pelvis yesterday. This showed some ovarian cysts. An ultrasound was obtained. There was no evidence of ovarian torsion. There is a left ovarian cyst and some echogenic fluid anterior and superior to the uterus. Patient was given her follow-up referral to [facility]. Patient has not made this appointment yet since it is Saturday. [facility] Medical History (Updated 01/09/21 @ 02:[address] Sharath Rao, ) GERD (gastroesophageal reflux disease) History of asthma Hyperlipidemia Home Medications pravastatin 20 mg PO DAILY 10/07/18 [History Last Taken Unknown] epinephrine 0.3 mg IJ X1 PRN #2 auto.injct 01/13/19 [Rx Last Taken Unknown] hydrocodone-acetaminophen 1 tab PO Q6H PRN PRN 3 Days #12 tablet 01/07/21 [Rx Last Taken Unknown] prednisone 40 mg PO DAILY PRN 01/07/21 [History Last Taken Unknown] ciprofloxacin HCl 500 mg PO BID #20 tablet 01/09/21 [Rx Last Taken Unknown] metronidazole 500 mg PO Q6H #40 tab 01/09/21 [Rx Last Taken Unknown] Allergy/AdvReac Type Severity Reaction Status Date / Time aspirin Allergy Angioedema, Verified 01/08/21 23:37 SOB, HIVES Iodinated Contrast Media Allergy Hives Verified 01/08/21 23:37 [Iodinated Contrast Media - Oral and] shellfish derived Allergy Hives Verified 01/08/21 23:37 strawberry Allergy Hives Verified 01/08/21 23:37 Surgical History (Updated 01/09/21 @ 02:[address] Sharath Rao DO) History of bilateral tubal ligation Social History Smoking Status: Never smoker substance use type: does not use ROS ROS ED Constitutional Constitutional ED: Denies chills or fever(s) Eyes Eyes: Denies blurry vision or change in vision ENT ENT ED: Denies rhinorrhea or sore throat Cardiovascular Cardiovascular: Denies chest pain or palpitations Respiratory/Chest Respiratory/Chest: Denies cough or dyspnea Gastrointestinal Gastrointestinal: Reports abdominal pain; Denies nausea or vomiting Genitourinary Genitourinary ED: Denies dysuria or hematuria Musculoskeletal Musculoskeletal: Denies back pain or neck pain Integumentary Reports rash; Denies abscess Neurologic Neurologic: Denies headache(s) or weakness Allergic/Immunologic Allergic/Immunologic ED: Denies mouth swelling or urticaria EXAM Physical Exam Const Vital Signs: 01/08/21 23:35 01/09/21 00:35 01/09/21 02:08 Temperature 99.5 F H Temperature Source Temporal Pulse Rate 101 H 86 Respiratory Rate 20 H 16 16 Blood Pressure 126/102 H Blood Pressure Mean 110 Pulse Ox 96 95 Oxygen Delivery Method Room Air Room Air Positive well nourished and well developed General Appearance ED: well developed HEENT Reports moist mucous membranes normocephalic Neck supple and no JVD Resp normal respiratory effort and clear to auscultation bilaterally Cardio regular rate and regular rhythm GI non-distended Palpation: soft and tender RUQ; Negative for guarding or rebound tenderness present Neuro CN's II-XII intact bilaterally, moves all extremities and no sensory deficits noted Sensorium / Orientation: alert, oriented to person, oriented to place and oriented to time Psych mental status grossly normal MDM MDM MDM Narrative Medical decision making narrative: Patient was given IV fluids and morphine here. CBC was within normal limits. Comprehensive metabolic profile was normal. Urinalysis does not show any evidence of urinary tract infection. CT scan of the abdomen pelvis with IV contrast was obtained. There is distention of the small bowel loops and enteritis cannot be excluded. There is no signs of diverticulitis. There are small gallstones but no evidence of cholecystitis. The left adnexal cyst is unchanged compared to previous CT. Patient was given prescriptions for Cipro and Flagyl. Patient left prior to receiving her first dose of antibiotics and her prescriptions. Patient also left prior to receiving discharge instructions. Lab Data Attestation: I reviewed the patient's lab results. Labs: Laboratory Results - last 24 hr 01/09/21 01/09/21 01/09/21 00:17 00:17 01:09 WBC 8.1 RBC 4.72 Hgb 12.9 Hct 40.1 MCV 85.0 MCH 27.3 MCHC 32.2 RDW Std Deviation 43.4 RDW Coeff of Mary 13.9 Plt Count 381 MPV 9.6 Immature Gran % (Auto) 0.200 Neut % (Auto) 73.7 H Lymph % (Auto) 14.9 L Pine % (Auto) 6.4 Eos % (Auto) 3.9 Baso % (Auto) 0.9 Absolute Neuts (auto) 6.0 Absolute Lymphs (auto) 1.21 Nucleated RBC % 0 Sodium 140 Potassium 3.7 Chloride 105 Carbon Dioxide 27.0 Anion Gap 8 BUN 12 Creatinine 0.82 Estim Creat Clear Calc 46.11 Est GFR (MDRD) Af Amer 87 Est GFR (MDRD) Non-Af 72 BUN/Creatinine Ratio 14.6 Glucose 117 H Calcium 9.0 Total Bilirubin 0.20 AST 21 ALT 22 Alkaline Phosphatase 122 H Total Protein 8.0 Albumin 3.4 Globulin 4.6 H Albumin/Globulin Ratio 0.7 L Lipase 68 L Urine Color Yellow Urine Clarity Clear Urine pH 6.5 Ur Specific Standish 1.010 Urine Protein Negative Urine Glucose (UA) Normal Urine Ketones Negative Urine Occult Blood Negative Urine Nitrite Negative Urine Bilirubin Negative Urine Urobilinogen Normal Ur Leukocyte Esterase 100 H Urine RBC 0 SEEN Urine WBC 0-5 SEEN Ur Squamous Epith Cells 0 SEEN Urine Bacteria 0 SEEN Urine Mucus 0 SEEN Radiography Diagnostic Testing: Radiology Impression Abdomen/Pelvis CT 01/09/21 00:05 IMPRESSION: Left adnexal complex cyst versus cystic neoplasm, described on previous CT abdomen and pelvis and ultrasound of the pelvis dated 01/07/2021. These are stable in the interval. Previously described echogenic fluid collection at the anterior pelvis/space of the talus represents a combination of cecal distention and multiple small bowel loops with trace amount of fluid between the loops. In the context mesenteric edema) Distention of the small bowel loops, cannot exclude enteritis. Clinical correlation recommended. Diverticulosis with no signs of diverticulitis. No signs of bowel obstruction. Small gallstones, remainder of abdominal viscera are unremarkable. Electronically Signed: Ivy Patel MD at 1:49 EDT , Service support , Discharge Plan Triage Chief Complaint: Abd Pain ED Provider: Sharath Rao Dx/Rx/DC Orders Clinical Impression: Enteritis Instructions: ED Abdominal Pain Unkn Cause Fem Prescriptions: New metronidazole [metronidazole] 500 MG tablet 500 mg PO Q6H Qty: 40 RF: 0 ciprofloxacin HCl [ciprofloxacin HCl] 500 MG tablet 500 mg PO BID Qty: 20 RF: 0 No Action pravastatin 20 MG tablet 20 mg PO DAILY RF: 0 epinephrine 0.3 MG/0.3 ML auto-injector 0.3 mg IJ X1 PRN (Reason: Anaphylaxis) Qty: 2 RF: 1 prednisone 20 MG tablet 40 mg PO DAILY PRN (Reason: Rash) RF: 0 hydrocodone-acetaminophen [hydrocodone-acetaminophen] 1 TABLET tablet 1 tab PO Q6H PRN PRN (Reason: Pain) 3 Days Qty: 12 RF: 0 Primary Care Provider: Jeff Diehl Referrals: Jeff Diehl MD [Primary Care Provider] - 3-5 Days Disposition Disposition: Elopement Discharge Date/Time: 01/09/21 02:29
--- NOTE | 2021-01-09 02:26 | ED.RN ---
This is called into the room. Patient at this time no longer wants to be the ER she is tried of waiting an no one is helping her. Advised the patient several nurses have been in the room multiple times to help her. Patient is just waiting for Doctor to come in and speak to her about her test results. Patient wants to leave. Iv discontinued and patient left the ER under own free will at this time
== END 2021-01-09 02:29 | disposition left against medical advice (07) ==
LOC: ED 01-09 00:28
PROVIDERS: Emergency Provider Emergency Medicine; PCP Family Medicine
DX: K52.9 Noninfective gastroenteritis and colitis, unspecified (principal); N83.202 Unspecified ovarian cyst, left side; R42 Dizziness and giddiness; E78.5 Hyperlipidemia, unspecified; J45.909 Unspecified asthma, uncomplicated; K21.9 Gastro-esophageal reflux disease without esophagitis; Z79.899 Other long term (current) drug therapy; Z98.51 Tubal ligation status
CPT/HCPCS: 74177; 80053; 81001; 83690; 85025; 96361; 96374; 99281; J7030; Q9967; A4216

== ENCOUNTER 2021-03-29 08:33 | Day surgery (SDC) | payer MEDICARE, SELFPAY ==
[2021-03-29] VITALS (7 sets, daily range): BP systolic 88–133; BP diastolic 41–65; PULSE 56–81; RESP 16; TEMP 36.5–37.3; O2SAT 96–99; BMI 29.9
[2021-03-29 09:08] LABS: Hematocrit 36.8 % (37-47); Hemoglobin 11.6 g/dL (12.0-15.0); Mean Corp Hgb Conc 31.5 g/dL (32-36); Mean Corpuscular Hgb 27.2 pg (27.0-32.0); Mean Corpuscular Volume 86.2 fL (81-99); Mean Platelet Vol. 10.1 fl (6.2-12.0); Platelet Count 360 K/mm3 (150-450); RBC Distribution Width CV 16.4 % (11.6-14.6); RBC Distribution Width SD 51.7 fl (35.1-43.9); Red Blood Count 4.27 M/mm3 (4.2-5.4); White Blood Count 6.2 K/mm3 (4.4-11.0)
[2021-03-29] MEDS: Lactated Ringers 1,000 ML 100 ML IV (09:13)
[2021-03-29 09:21] LABS: Anion Gap 7 (5-15); BUN 10 mg/dL (7-18); BUN/Creat Ratio 14.1 RATIO (10-20); Chloride 107 mmol/L (98-107); Creatinine, Serum 0.71 mg/dL (0.55-1.02); EST Glomerular Filtration Rate 86 mL/min (>60); Est Glom Filt Rate - Afr Amer 104 mL/min (>60); Estimated Creatinine Clearance 35.45 ml/min; Glucose 105 mg/dL (74-106); Potassium 3.7 mmol/L (3.5-5.1); Sodium Level 140 mmol/L (136-145)
--- NOTE | 2021-03-29 09:44 | HP.PCM_ITS ---
History and Physical Date of Admission: 03/29/21 ntake Visit Reasons: port consult Chief Complaint: port [facility] Specialist Required: No Is patient in pain?: No Allergies mushroom Allergy (Mild, Verified 03/24/21 09:05) Hives aspirin Allergy (Verified 03/24/21 09:05) Angioedema, SOB, HIVES Iodinated Contrast Media [Iodinated Contrast Media - Oral and] Allergy (Verified 03/24/21 09:05) Hives shellfish derived Allergy (Verified 03/24/21 09:05) Hives strawberry Allergy (Verified 03/24/21 09:05) Hives Medications pravastatin 20 mg PO DAILY 10/07/18 [History Confirmed 01/09/21] epinephrine 0.3 mg IJ X1 PRN #2 auto.injct 01/13/19 [Rx Confirmed 01/09/21] docusate sodium 100 mg capsule 100 mg PO DAILY 03/24/21 [History Confirmed 03/24/21] enoxaparin 40 mg/0.4 mL subcutaneous syringe 40 mg SUBCUT DAILY 03/24/21 [History Confirmed 03/24/21] vitamin A55-syknige B1 1,000 mcg-100 mg/mL injection solution ml IM 03/24/21 [History Confirmed 03/24/21] PFSH Medical History GERD (gastroesophageal reflux disease) High cholesterol History of asthma Hyperlipidemia Ovarian cancer Surgical History History of ankle surgery History of bilateral tubal ligation S/P tubal ligation Status post ovarian cystectomy Family History Mother Cancer pancreatic Father Hypertension Social History Smoking Status: Never smoker alcohol intake: current alcohol intake frequency: holidays/special occasions only substance use type: does not use HPI HPI HPI: Monique RAMÍREZ, is a 75 F who presents to the office today for surgical consultation regarding port placement. The patient's primary care provider is Dr. Jeff Diehl. The patient is referred by Dr. Lucio Villanueva and a written compromise surgical consult recommendations will return to him. On February 27 2021 she had a total abdominal hysterectomy with bilateral salpingo-oophorectomy omentectomy radical tumor debulking repair of small bowel distal serosal position and a pre-Venna incision management device placement for a high-grade serous carcinoma of bilateral ovaries. She is in need of port placement to facilitate chemotherapy management. She has never had any central venous access device. She does have chronic asthma. She has had COVID-19. ROS General General: Yes fatigue; No weight change, appetite, colon cancer, breast cancer or weakness HEENT HEENT: No difficulty swallowing, eye injury, eye surgery, swollen glands or hoarseness Endo Endocrine: No thyroid disease, diabetes mellitus, thyroid cancer, Hair loss, heat intolerance or cold intolerance Skin Skin: Yes rash; No changing moles Breast Breast: No left breast lump, right breast lump, nipple discharge, breast pain, abnormal mammogram, abnormal US or breast enlargement Musc Musculoskeletal: No back problems, arthritis, rheumatoid arthritis, gout or joint pain Cardio Cardiovascular: No murmur, pacemaker, heart disease, atrial fibrillation, high blood pressure, heart attack, heart stent, palpitations, shortness of breat with exertion or chest pain Psych Psychiatric: No depression, anxiety or hearing voices Resp Respiratory: No shortness of breath, Yes sleep apnea, No cough, No COPD, Yes asthma, No emphysema and No wheezing Gastro Gastrointestinal: No abdominal pain, No nausea or vomiting, No diarrhea, No constipation, No blood in stool, No acid reflux, No hemorrhoids, No ulcers, No gallbladder problem and No black,tarry stools Carlos Hematologic: No blood thinners, No blood disorders, No bleeding, No anemia and No blood clots Neuro Neurologic: No system reviewed and no additional complaints, except as documented, No as per HPI, No abnormal gait, No abnormal hearing, No abnormal movements, No abnormal speech, No behavioral changes, No burning sensations, No confusion, No convulsions, No disequilibrium, No dizziness, No localized weakness, No frequent falls, No headache(s), No lack of coordination, No loss of vision, No memory loss, No numbness, No other visual disturbances, No radicular pain, No restless legs, No sensory deficit, No syncope, No tingling, No tremor(s), No weakness and No other Exam Const General: cooperative, comfortable and no acute distress Nutritional Appearance: overweight Orientation: alert and awake [facility] Head: normal to inspection Neck Other: Very full bilateral supraclavicular spaces consistent with hyperinflation of the lung. Chest Other: Anterior chest is erythematous but nontender Resp Effort & Inspection: normal respiratory effort Auscultation: clear to auscultation bilaterally Cardio Rate: regular rate Rhythm: regular rhythm GI Palpation: soft Other: Mildly distended Musc Cervical Spine: normal cervical lordosis Neuro General: patient alert Extrem General: no calf tenderness Psych Appearance: grossly normal Assessment and Plan Assessment and Plan (1) Status post ovarian cystectomy: Status: Acute (2) Ovarian cancer: Status: Acute Qualifiers: Laterality: bilateral Qualified Code(s): C56.1 - Malignant neoplasm of right ovary; C56.2 - Malignant neoplasm of left ovary Plan - Dr. Marcelino Quesada MD: I recommend a right internal jugular port placement I discussed technique, benefit, risk of alternatives. The patient is on Lovenox therapy postoperatively. She has had an opportunity ask and have questions answered. We will investigate the OR schedule and schedule soon as possible. She and her have had an opportunity ask and have questions answered. I appreciate the opportunity of facilitating her surgical care. Copy: Dr. Lucio Villanueva and Dr. Jeff Quesada M.D., F.A.C.S. I have re-examined the patient. There are no clinical changes since date of exam. Marcelino Quesada M.D., F.A.C.S.
--- NOTE | 2021-03-29 09:45 | EX.PCM.DISCH ---
Discharge Instructions Procedure Port-A-Cath Diet Discharge Diet: No restrictions (Pain medication may cause nausea. You should typically eat light foods as you take your pain medication.) Activity Discharge Activity: Return to Normal Activity and May Shower (Leave the bandage on for 2-3 days. When you remove the bandage, leave the steri-strips intact until they fall off.) Additional Activity Instructions:: May not drive, work with heavy equipment, or sign legal documents for [address]. [address] if you are no longer taking narcotic pain medications. You may drive when you are no longer taking pain medications. Dressing / Incision Additional Dressing/Incision Instructions:: Leave the bandage on for 2-3 days. When you remove the bandage, leave the steri-strips intact until they fall off. Follow Up Care Please Follow Up With: Marcelino Quesada MD When: Call [phone] to make an appointment to be seen in 7 days. Test Results: Test results from this visit will be discussed in further detail at your follow-up appointment, if applicable. Discharge Plan Admission Attending Provider: Marcelino Quesada Primary Care Provider: Jeff Diehl Discharge Orders/Prescriptions Prescriptions: No Action pravastatin 20 MG tablet 20 mg PO DAILY RF: 0 epinephrine 0.3 MG/0.3 ML auto-injector 0.3 mg IJ X1 PRN (Reason: Anaphylaxis) Qty: 2 RF: 1 clobetasol 0.05 % cream 1 applic TOPICAL DAILY PRN PRN (Reason: Rash to arms) RF: 0 triamcinolone acetonide 0.1 % ointment 1 applic TOPICAL DAILY PRN (Reason: rash to face and chest) RF: 0 multivitamin Tablet 1 tab PO DAILY RF: 0 acetaminophen 325 mg Tablet 650 mg PO Q6H PRN (Reason: Pain) RF: 0 docusate sodium [Colace] 100 mg Capsule 100 mg PO DAILY RF: 0
[2021-03-29] MEDS: Cefazolin 2 GM in 0.9% Normal Saline 100 ML IV (10:10)
[2021-03-29] MEDS: Bupivacaine Mpf 0.5% 30 ML VIAL (10:30)
[2021-03-29] MEDS: Lidocaine 1% (30 ml sdv) 30 ML Vial (10:30)
--- NOTE | 2021-03-29 11:00 | RAD_ITS ---
STUDY: X-RAY CHEST REASON FOR EXAM: Female, 76 years old. Line placement TECHNIQUE: Frontal view of the chest COMPARISON: 04/08/20 FINDINGS: There is a right-sided port with its tip in the superior vena cava. The lungs are hyperinflated, but clear. There are no pleural effusions. There is no pneumothorax. The heart is stable in size. The visualized osseous structures are within normal limits. RAD/CXR for Line Placement IMPRESSION: Satisfactory position of the right-sided port. No pneumothorax. No acute thoracic pathology. Electronically Signed: Kale Villalta MD at 11:30 EDT Tel , Service support ,
--- NOTE | 2021-03-29 11:01 | OP.PCM_ITS ---
Problems Associated Problem List Diagnoses (1) Ovarian cancer: Report of Operation Date of Procedure: 03/29/21 Pre-Operative Diagnosis: Ovarian cancer Post-Operative Diagnosis: Same Surgery/Procedure Performed:: Right internal jugular 6 [place] [employer] placement Reference [id number] [id number] Expiry date 12/02/2021 Description of Surgical Findings:: Timeout and informed consent was obtained. 76-year-old female was taken to the operating placed on the table underwent monitored anesthesia care. The right neck and chest were sterilely prepped and draped. 1% lidocaine mixed 50-50 with 0.5% Marcaine was used as local anesthetic. Total 20 cc was used. Under ultrasound guidance local was instilled in the right neck. Using a micropuncture needle access was gained to the right internal jugular vein followed by Salinger wire advancement. Local instilled down upon the right chest. Second intercostal space midclavicular line made a transverse incision and then using electrocautery made a subcutaneous pocket. The tubing was tunneled from the neck to the chest. Then micropuncture sheath was placed over the wire the wire dilator removed and a [id number] was inserted via extra sheath was removed fluoroscopy demonstrated good positioning sheath dilator was placed the wire and dilator were removed catheters vascular sheath the sheath was split the catheter was positioned at the SVC atrial junction. The cath was amputated in length connected the port secured to the port attachment device. The port was placed in the pocket secured there with 2-0 silk. The skin was approximated up to 3-0 Vicryl subdermal stitches. The neck was closed interrupted 5-0 Vicryl subdermal stitch. The port was accessed and aspirated easily was flushed with saline and 2 cc of heparinized saline. Steri-Strips Telfa OpSite dressings applied. Sponge and instrument and needle counts reported to the surgeon to be correct. Specimens none. Drains none. Blood loss minimal. The patient was taken to the recovery room in satisfactory addition without apparent complication Marcelino Quesada M.D., F.A.C.S. Surgeon: Marcelino Quesada
== END 2021-03-29 12:15 | disposition home or self-care (01) ==
LOC: SDC 08:34 → AC 08:35
PROVIDERS: PCP Family Medicine; Referring Provider Surgery; Visit Provider Surgery
PROC: (CPT 36561; principal; 2021-03-29 10:35)
DX: Z45.2 Encounter for adjustment and management of vascular access device (principal); C56.1 Malignant neoplasm of right ovary; C56.2 Malignant neoplasm of left ovary; E78.5 Hyperlipidemia, unspecified; J45.909 Unspecified asthma, uncomplicated; K21.9 Gastro-esophageal reflux disease without esophagitis; Z79.899 Other long term (current) drug therapy; Z86.16 Personal history of COVID-19
CPT/HCPCS: 00532; 36561; 71045; 77001; 80048; 85027; J7120; J2405

== ENCOUNTER 2021-04-07 05:12 | Emergency (ER) | payer MEDICARE, SELFPAY ==
[2021-04-07 05:14] VITALS: BP 133/83; PULSE 86; RESP 24; TEMP 35.9; O2SAT 97; BMI 30.2
--- NOTE | 2021-04-07 05:27 | CT_ITS ---
EXAM: CT ABDOMEN AND PELVIS WITH INTRAVENOUS CONTRAST : 1945 CLINICAL INDICATION: LLQ pain, post operative TECHNIQUE: Helically acquired images were obtained of the abdomen and pelvis with intravenous contrast. This CT exam was performed using one or more of the following dose reduction techniques: automated exposure control, adjustment of the mA and/or kV according to patient size, and/or use of iterative reconstruction technique. This report was created using [employer] report generation technology. CONTRAST: IV 100mL Isovue-300 COMPARISON: 01/09/21 FINDINGS: LOWER THORAX: Unremarkable. Lung bases are clear. No cardiomegaly. No significant pericardial effusion. ABDOMEN: LIVER: Unremarkable. Homogeneous. No focal mass. GALLBLADDER AND BILE DUCTS: Unremarkable. No calcified gallstones. No gallbladder distention or wall edema. No intra- or extrahepatic biliary ductal dilation. PANCREAS: Unremarkable. No focal cystic or solid mass. SPLEEN: Unremarkable. Normal size without focal cystic or solid mass. ADRENALS: Unremarkable. No nodules. KIDNEYS AND URETERS: Unremarkable. Normal renal size and position. No hydronephrosis. STOMACH AND BOWEL: Mild wall thickening of the sigmoid colon with multiple diverticuli. No stomach or bowel distention. PELVIS: APPENDIX: No evidence of acute appendicitis. BLADDER: Unremarkable. REPRODUCTIVE: Hysterectomy. ABDOMEN and PELVIS: INTRAPERITONEAL SPACE: Unremarkable. No ascites or other fluid collection. No free air. BONES/JOINTS: Degenerative changes of the spine. No suspicious lytic or blastic abnormality. SOFT TISSUES: Unremarkable. No discrete abdominal or pelvic wall hernia. VASCULATURE: Moderate atherosclerotic changes of the abdominal aorta. Abdominal aorta is non-dilated. LYMPH NODES: Unremarkable. No enlarged lymph nodes. CT/Abdomen/Pelvis W IV Cont ONLY IMPRESSION: Mild wall thickening of the sigmoid colon with multiple diverticuli. Findings may indicate mild diverticulitis. Individualized dose optimization techniques were used for this CT. at 0684 Reported and signed by: Aneudy Solitario MD Electronically Signed: Aneudy Solitario MD at 6:25 EDT Tel , Service support ,
--- NOTE | 2021-04-07 05:29 | ED.VIS.GI ---
HPI HPI - GI History of Present Illness Chief Complaint: Abd Pain Informant: patient and spouse/S.O. Narrative Narrative: History is from patient and spouse. The history does vary somewhat between them and very somewhat moment to moment. The consensus of the history is that the patient's head left lower quadrant pain starting somewhere last evening between 4 PM and 8 PM. It is very painful it is well localized to the left lower quadrant. No back pain. No urinary symptoms. No fevers or chills. She states she has no nausea vomiting but then implies that she is nauseated. She has been moving her bowels. She does not know if she is passed gas since it started. She does not know if her stomach is the same size bigger or smaller than normal. Patient has a history of an ovarian cyst. This was removed at [facility] toward the end of February. I then find out that she had spots of cancer in many areas around her abdomen. These were zapped but they do not know what the origin of this was. I have no report of chemotherapy. No report of radiation therapy. They have had 1 follow-up and they have another one coming up soon. It is unclear exactly all the details of this procedure. I do find out that she has had diverticular disease on colonoscopy but it does not sound like she has had diverticulitis before. [facility] Medical History Alcohol use Anemia Dermatomyositis High cholesterol History of asthma History of COVID-19 History of stress test Hyperlipidemia Memory deficit Non-smoker Ovarian cancer Shortness of breath on exertion Home Medications pravastatin 40 mg PO DAILY 10/07/18 [History Last Taken Unknown] epinephrine 0.3 mg IJ X1 PRN #2 auto.injct 01/13/19 [Rx Last Taken Unknown] multivitamin 1 tab PO DAILY 03/27/21 [History Last Taken Unknown] acetaminophen 1,000 mg PO Q6H PRN 04/07/21 [History Last Taken Unknown] amoxicillin-pot clavulanate [Augmentin] 1 tab PO BID #20 tab 04/07/21 [Rx Last Taken Unknown] folic acid 1 mg PO DAILY 04/07/21 [History Last Taken Unknown] ondansetron 4 mg PO Q8H PRN #10 tab 04/07/21 [Rx Last Taken Unknown] oxycodone 5 mg PO Q6H PRN 04/07/21 [History Last Taken Unknown] oxycodone-acetaminophen [Percocet] 1 tab PO Q6H PRN 3 Days #12 tab 04/07/21 [Rx Last Taken Unknown] senna-docusate sodium 1 tab PO BID 04/07/21 [History Last Taken Unknown] Allergy/AdvReac Type Severity Reaction Status Date / Time mushroom Allergy Mild Hives Verified 04/07/21 05:17 aspirin Allergy Angioedema, Verified 04/07/21 05:17 SOB, HIVES Iodinated Contrast Media Allergy Hives Verified 04/07/21 05:17 [Iodinated Contrast Media - Oral and] shellfish derived Allergy Hives Verified 04/07/21 05:17 strawberry Allergy Hives Verified 04/07/21 05:17 Family History Mother Cancer pancreatic Father Hypertension Surgical History History of ankle surgery History of bilateral tubal ligation History of colonoscopy History of total hysterectomy S/P tubal ligation Status post ovarian cystectomy Social History Smoking Status: Never smoker alcohol intake: current alcohol intake frequency: holidays/special occasions only substance use type: does not use ROS ROS ED Constitutional Constitutional ED: Denies chills or fever(s) ENT ENT ED: Denies rhinorrhea Cardiovascular Cardiovascular: Denies chest pain or palpitations Respiratory/Chest Respiratory/Chest: Denies cough, dyspnea or sputum Gastrointestinal Gastrointestinal: Reports abdominal pain, diarrhea, nausea and other Details: Possibly nausea and possibly diarrhea. No blood in the stool. ; Denies constipation, melena or vomiting Genitourinary Genitourinary ED: Denies dysuria or hematuria Musculoskeletal Musculoskeletal: Denies arthralgias, back pain or myalgias Integumentary Denies rash Neurologic Neurologic: Denies paresthesias or weakness Endocrine Endocrinology: Denies polydipsia or polyuria Hematologic/Lymphatic Hematologic/Lymphatic: Denies easy bleeding or easy bruising Allergic/Immunologic Allergic/Immunologic ED: Reports other Details: Patient does have diffuse rash. This is not new or different. EXAM Physical Exam Const Vital Signs: 04/07/21 05:14 04/07/21 07:08 Temperature 96.7 F L Temperature Source Temporal Pulse Rate 86 79 Respiratory Rate 24 H 18 Blood Pressure 133/83 H 128/60 H Blood Pressure Mean 99 Pulse Ox 97 96 Oxygen Delivery Method Room Air Positive well nourished, well developed and obese Constitutional Narrative: Patient looks genuinely uncomfortable. She is holding the left lower quadrant. She is nontoxic. General Appearance ED: well developed Nutritional Appearance: obese HEENT Reports moist mucous membranes normocephalic and atraumatic Eyes General Eye ED: Negative for pale conjunctiva or scleral icterus Neck no JVD Resp normal respiratory effort and clear to auscultation bilaterally Auscultation: Negative for rales, rhonchi or wheezes Cardio regular rate and regular rhythm GI non-distended GI Narrative: Abdomen is mildly obese but does not appear to be distended or taut. She does have a well-healed midline incision. No sign of infection. Patient does have some tenderness at the left lower quadrant. If I press at the left upper quadrant this does refer somewhat to the left lower. Right side is not tender. No right upper quadrant tenderness. Palpation: soft Back/Spine no CVA tenderness Extremity full ROM Neuro Sensorium / Orientation: alert and oriented to person Psych mental status grossly normal Skin Skin Narrative: Mild erythema face and forearms which is evidently chronic and not new or different MDM MDM MDM Narrative Medical decision making narrative: Patient's labs show normal white count. Minimal anemia. Electrolytes show no marked abnormalities. Urine is clear. No nitrites. Small amount of leukocyte esterase. Micro is pending. Her CT is consistent with some mild diverticulitis. No sign of complication with surgery. She is markedly more comfortable on recheck. She states she feels just a little bit woozy after the pain meds but they helped quite a bit. She states she has been on Percocet and oxycodone before. She thinks she has taken Augmentin without problems. I will get her home on pain meds antibiotics and meds for nausea. If she develops worsening pain, fevers, recurrent vomiting or other findings she should return. She should still follow-up with her surgeon as scheduled for recheck. Lab Data Labs: Laboratory Results - last 24 hr 04/07/21 04/07/21 04/07/21 05:20 05:20 06:25 WBC 6.3 RBC 4.20 Hgb 11.3 L Hct 35.7 L MCV 85.0 MCH 26.9 L MCHC 31.7 L RDW Std Deviation 47.8 H RDW Coeff of Mary 15.4 H Plt Count 331 MPV 10.8 Immature Gran % (Auto) 0.300 Neut % (Auto) 75.2 H Lymph % (Auto) 19.1 Burnet % (Auto) 1.9 Eos % (Auto) 3.0 Baso % (Auto) 0.5 Absolute Neuts (auto) 4.8 Absolute Lymphs (auto) 1.21 Nucleated RBC % 0 Differential Comment SCANNED Atypical Lymphocytes 1+ Sodium 136 Potassium 3.6 Chloride 103 Carbon Dioxide 26.0 Anion Gap 7 BUN 15 Creatinine 0.66 Estim Creat Clear Calc 35.45 Est GFR (MDRD) Af Amer 112 Est GFR (MDRD) Non-Af 92 BUN/Creatinine Ratio 22.6 H Glucose 117 H Calcium 8.4 L Urine Color Yellow Urine Clarity Clear Urine pH 5.0 Ur Specific Junior 1.010 Urine Protein Negative Urine Glucose (UA) Normal Urine Ketones Negative Urine Occult Blood Negative Urine Nitrite Negative Urine Bilirubin Negative Urine Urobilinogen Normal Ur Leukocyte Esterase 25 H Urine RBC 0 SEEN Urine WBC 0-5 SEEN Ur Squamous Epith Cells 0 SEEN Urine Bacteria 0 SEEN Urine Mucus 0 SEEN Radiography Diagnostic Testing: Radiology Impression Abdomen/Pelvis CT 04/07/21 05:27 IMPRESSION: Mild wall thickening of the sigmoid colon with multiple diverticuli. Findings may indicate mild diverticulitis. Individualized dose optimization techniques were used for this CT. at 0626 Reported and signed by: Aneudy Solitario MD Electronically Signed: Aneudy Solitario MD at 6:25 EDT Tel , Service support , Discharge Plan Triage Chief Complaint: Abd Pain ED Provider: Elvis Donnelly Dx/Rx/DC Orders Clinical Impression: Diverticulitis Instructions: ED Diverticulitis Prescriptions: New oxycodone-acetaminophen [Percocet] 5-325 mg tablet 1 tab PO Q6H PRN (Reason: pain) 3 Days Qty: 12 RF: 0 ondansetron 4 mg tablet,disintegrating 4 mg PO Q8H PRN (Reason: nausea and vomiting) Qty: 10 RF: 0 amoxicillin-pot clavulanate [Augmentin] 875-125 mg tablet 1 tab PO BID Qty: 20 RF: 0 No Action pravastatin 20 MG tablet 40 mg PO DAILY RF: 0 epinephrine 0.3 MG/0.3 ML auto-injector 0.3 mg IJ X1 PRN (Reason: Anaphylaxis) Qty: 2 RF: 1 multivitamin Tablet 1 tab PO DAILY RF: 0 acetaminophen 500 mg Tablet 1,000 mg PO Q6H PRN (Reason: Pain) RF: 0 folic acid 1 mg Tablet 1 mg PO DAILY RF: 0 oxycodone 5 mg Tablet 5 mg PO Q6H PRN (Reason: Pain) RF: 0 senna-docusate sodium Tablet 1 tab PO BID RF: 0 Primary Care Provider: Jeff Diehl Referrals: Jeff Diehl MD [Primary Care Provider] - 3-5 Days if not improving Disposition Disposition: Home, Self Care Discharge Date/Time: 04/07/21 07:09
[2021-04-07 05:32] LABS: Absolute Lymphocyte Count 1.21 X10^3/uL (0.83-4.51); Absolute Neutrophil Count 4.8 X10^3/uL (2.0-7.7); Basophil# 0.03 X10^3/uL; Basophil% 0.5 % (0-1); Eosinophil# 0.19 X10^3/uL; Hematocrit 35.7 % (37-47); Hemoglobin 11.3 g/dL (12.0-15.0); Lymphocyte # 1.21 X10^3/ul (0.83-4.51); Lymphocyte % 19.1 % (19-41); Mean Corp Hgb Conc 31.7 g/dL (32-36); Mean Corpuscular Hgb 26.9 pg (27.0-32.0); Mean Platelet Vol. 10.8 fl (6.2-12.0); Monocyte# 0.12 X10^3/uL; Monocyte% 1.9 % (0-10); NRBC Flagged by Analyzer 0 % (0-5); Neutrophil # 4.77 X10^3/uL (2.7-7.7); Neutrophil % 75.2 % (47-70); POSITIVE MORPHOLOGY YES; Platelet Count 331 K/mm3 (150-450); RBC Distribution Width CV 15.4 % (11.6-14.6); RBC Distribution Width SD 47.8 fl (35.1-43.9); White Blood Count 6.3 K/mm3 (4.4-11.0)
[2021-04-07] MEDS: 0.9% Normal Saline 1,000 ML 1000 ML IV (05:35)
[2021-04-07] MEDS: Ondansetron 4 MG/2 ML Vial IV (05:35)
[2021-04-07] MEDS: DiphenhydrAMINE 50 MG/ML Syringe 25 MG IV (05:35)
[2021-04-07] MEDS: Morphine 4 MG/ML Syringe IV (05:36)
[2021-04-07 05:40] LABS: Differential Indicated SCAN CRITERIA MET
[2021-04-07 05:48] LABS: Anion Gap 7 (5-15); BUN 15 mg/dL (7-18); BUN/Creat Ratio 22.6 RATIO (10-20); Calcium,Total 8.4 mg/dL (8.5-10.1); Chloride 103 mmol/L (98-107); Creatinine, Serum 0.66 mg/dL (0.55-1.02); EST Glomerular Filtration Rate 92 mL/min (>60); Est Glom Filt Rate - Afr Amer 112 mL/min (>60); Estimated Creatinine Clearance 35.45 ml/min; Glucose 117 mg/dL (74-106); Potassium 3.6 mmol/L (3.5-5.1); Sodium Level 136 mmol/L (136-145)
[2021-04-07 06:17] LABS: Atypical Lymphocyte 1+ %; Differential Comment SCANNED
[2021-04-07 06:31] LABS: Bacteria 0 SEEN /hpf (None Seen); Mucous, Urine 0 SEEN /hpf (<or=2+); Red Blood Cells-Urine 0 SEEN /hpf (0-5); Squamous Epithelial Cells - UA 0 SEEN /hpf (5-10)
[2021-04-07 06:37] LABS: Color, Urine Yellow (Yellow); Glucose, Dipstick Normal (Normal); Ketone-Dipstick Negative (Negative); Leukocyte Esterase-Dipstick 25 /ul (Negative); Nitrite-Dipstick Negative (Negative); Occult Blood-Urine Negative /ul (Negative); Protein-Dipstick Negative (Negative); Urine Bilirubin Dipstick Negative (Negative); Urine Clarity Clear (Clear); Urine Urobilinogen Normal (Normal)
[2021-04-07 06:52] LABS: White Blood Cells 0-5 SEEN /hpf (0-5)
[2021-04-07 07:08] VITALS: BP 128/60; PULSE 79; RESP 18; O2SAT 96
== END 2021-04-07 07:09 | disposition home or self-care (01) ==
PROVIDERS: Emergency Provider Emergency Medicine; PCP Family Medicine
DX: K57.92 Diverticulitis of intestine, part unspecified, without perforation or abscess without bleeding (principal); D64.9 Anemia, unspecified; E78.5 Hyperlipidemia, unspecified; Z79.899 Other long term (current) drug therapy
CPT/HCPCS: 74177; 80048; 81001; 85025; 96374; 96375; 99282; J7030; Q9967; A4216; J2405

== ENCOUNTER 2021-04-28 01:06 | Emergency (ER) | payer MEDICARE, SELFPAY ==
[2021-04-28 01:07] VITALS: BP 171/74; PULSE 110; RESP 19; TEMP 36.7; O2SAT 96; BMI 30.4
--- NOTE | 2021-04-28 01:24 | CT_ITS ---
STUDY: CT ABDOMEN AND PELVIS WITH CONTRAST REASON FOR EXAM: Female, 76 years old patient with left lower quadrant (LLQ) abdominal pain. RADIATION DOSAGE (If Supplied By Facility): CTDIvol = ( 12.57 ) mGy, DLP = ( 690.81 ) mGycm TECHNIQUE: Transaxial images were obtained from the dome of the diaphragm to the symphysis pubis with oral contrast. 100 mL of IV Isovue-370 was administered. Sagittal and coronal images were reconstructed. Individualized dose optimization techniques were used for this CT. COMPARISON: CT of the abdomen and pelvis dated 01/09/2021. FINDINGS: Curvilinear opacities are visible at the lung bases suggesting subsegmental atelectasis. The visualized portions of the heart are within normal limits. Normal liver. There is a solitary gallstone. Normal spleen. There is diffuse atrophy of the pancreas. Normal bilateral adrenal glands. Normal right kidney. Normal left kidney. Normal visualized stomach. There is no obvious dilated bowel, ascites or pneumoperitoneum. There is fluid within the ascending colon. There is stool visible without within the transverse, and descending colon primarily. There is abnormal thickening of the bailey of the sigmoid colon with associated acute inflammation. This could be the result of acute diverticulitis versus localized colitis. There is non-visualization of the appendix. There is diffuse atherosclerotic calcification of the abdominal aorta, without a demonstrated aneurysm. Normal inferior vena cava. Normal retroperitoneum. Normal urinary bladder. There is absence of the uterus consistent with a prior hysterectomy. Normal abdominal wall. There are diffuse degenerative changes of the visualized spine. The bones are osteopenic. There are bridging osteophytes anterior to the right sacroiliac joint. CT/Abdomen/Pelvis WITH Contrast IMPRESSION: 1. Findings are consistent with acute sigmoid colon diverticulitis and/or localized colitis. There is no evidence for abscess. 2. Cholelithiasis without obvious acute cholecystitis. Electronically Signed: Osiris Platt MD at 5:47 EDT , Service support ,
--- NOTE | 2021-04-28 01:24 | EX.ED.DYSGE1 ---
HPI History of Present Illness Chief Complaint: Abd Pain Informant: patient Onset/Context/Timing Onset: Yesterday Context: Gradual Onset and - (Gradual onset but worsened significantly around 9:30 PM.) Timing: Continuous Current Severity: Severe Maximum Severity: Severe Narrative Narrative: Patient present secondary to left lower quadrant abdominal pain. Earlier this month patient was seen for similar and diagnosed with mild diverticulitis. She was treated with Augmentin. Patient states she took the full course of medication and was completely back to baseline. Yesterday she had some mild pain that worsened around 930 last evening. Patient took 2 Percocet without improvement. Patient was recently diagnosed with ovarian cancer. She had a total hysterectomy in February. She just recently began chemotherapy, last treatment being 3 days ago. Patient denies fever or chills. She has been having some mild diarrhea. [facility] Medical History Alcohol use Anemia Dermatomyositis High cholesterol History of asthma History of COVID-19 History of stress test Hyperlipidemia Memory deficit Non-smoker Ovarian cancer Shortness of breath on exertion Home Medications epinephrine 0.3 mg IJ X1 PRN #2 auto.injct 01/13/19 [Rx Last Taken Unknown] acetaminophen 1,000 mg PO Q6H PRN 04/07/21 [History Last Taken Unknown] ondansetron 4 mg PO Q8H PRN #10 tab 04/07/21 [Rx Last Taken Unknown] oxycodone-acetaminophen [Percocet] 1 tab PO Q6H PRN 3 Days #12 tab 04/07/21 [Rx Last Taken Unknown] ciprofloxacin HCl [Cipro] 500 mg PO BID #20 tab 04/28/21 [Rx Last Taken Unknown] hydrocodone-acetaminophen 1 tab PO Q6H PRN 3 Days #10 tab 04/28/21 [Rx Last Taken Unknown] metronidazole 500 mg PO TID #30 tab 04/28/21 [Rx Last Taken Unknown] ondansetron 4 mg PO Q8H PRN #10 tab 04/28/21 [Rx Last Taken Unknown] Allergy/AdvReac Type Severity Reaction Status Date / Time mushroom Allergy Mild Hives Verified 04/28/21 01:12 aspirin Allergy Angioedema, Verified 04/28/21 01:12 SOB, HIVES Iodinated Contrast Media Allergy Hives Verified 04/28/21 01:12 [Iodinated Contrast Media - Oral and] shellfish derived Allergy Hives Verified 04/28/21 01:12 strawberry Allergy Hives Verified 04/28/21 01:12 Family History Mother Cancer pancreatic Father Hypertension Surgical History History of ankle surgery History of bilateral tubal ligation History of colonoscopy History of total hysterectomy S/P tubal ligation Status post ovarian cystectomy Social History Smoking Status: Never smoker alcohol intake: current alcohol intake frequency: holidays/special occasions only substance use type: does not use ROS ROS ED Constitutional Constitutional ED: Denies chills or fever(s) Eyes Eyes: Denies change in vision ENT ENT ED: Denies sore throat Cardiovascular Cardiovascular: Denies chest pain Respiratory/Chest Respiratory/Chest: Denies cough or dyspnea Gastrointestinal Gastrointestinal: Reports abdominal pain and diarrhea; Denies nausea or vomiting Genitourinary Genitourinary ED: Denies dysuria or hematuria Musculoskeletal Musculoskeletal: Denies back pain Integumentary Denies rash Neurologic Neurologic: Denies headache(s) or weakness Allergic/Immunologic Allergic/Immunologic ED: Denies urticaria EXAM Physical Exam Const Vital Signs: 04/28/21 01:07 04/28/21 03:15 04/28/21 04:05 Temperature 98.0 F Temperature Source Temporal Pulse Rate 110 H 80 87 Respiratory Rate 19 H 18 18 Blood Pressure 171/74 H 123/57 H 135/77 H Blood Pressure Mean 106 79 96 Pulse Ox 96 92 97 Oxygen Delivery Method Room Air Room Air Room Air 04/28/21 05:51 Temperature Temperature Source Pulse Rate 98 Respiratory Rate 19 H Blood Pressure 132/67 H Blood Pressure Mean 88 Pulse Ox 97 Oxygen Delivery Method Room Air Positive well nourished and well developed General Appearance ED: well developed HEENT Reports normocephalic and head/scalp atraumatic Eyes PERRL and EOMs intact bilaterally Neck supple Chest Wall inspection of chest normal and palpation of chest normal Resp normal respiratory effort and clear to auscultation bilaterally Cardio regular rate and regular rhythm GI Auscultation: hypoactive bowel sounds Palpation: tender LLQ Extremity normal to inspection Neuro oriented x3 and no sensory deficits noted Sensorium / Orientation: alert Motor Exam: strength 5/5 throughout Psych Mood & Affect: anxious Skin no rashes or lesions noted MDM MDM Lab Data Labs: Laboratory Results - last 24 hr 04/28/21 04/28/21 04/28/21 01:20 01:20 01:47 WBC 7.4 RBC 3.83 L Hgb 10.4 L Hct 33.3 L MCV 86.9 MCH 27.2 MCHC 31.2 L RDW Std Deviation 49.2 H RDW Coeff of Mary 15.4 H Plt Count 284 MPV 10.0 Immature Gran % (Auto) 0.300 Neut % (Auto) 79.7 H Lymph % (Auto) 17.4 L White % (Auto) 1.6 Eos % (Auto) 0.5 Baso % (Auto) 0.5 Absolute Neuts (auto) 5.9 Absolute Lymphs (auto) 1.28 Nucleated RBC % 0 Sodium 137 Potassium 3.9 Chloride 106 Carbon Dioxide 25.0 Anion Gap 6 BUN 13 Creatinine 0.60 Estim Creat Clear Calc 35.45 Est GFR (MDRD) Af Amer 127 Est GFR (MDRD) Non-Af 105 BUN/Creatinine Ratio 21.8 H Glucose 129 H Lactic Acid 1.2 Calcium 8.4 L Urine Color Urine Clarity Urine pH Ur Specific Marshall Urine Protein Urine Glucose (UA) Urine Ketones Urine Occult Blood Urine Nitrite Urine Bilirubin Urine Urobilinogen Ur Leukocyte Esterase Urine RBC Urine WBC Ur Squamous Epith Cells Urine Bacteria Urine Mucus 04/28/21 02:54 WBC RBC Hgb Hct MCV MCH MCHC RDW Std Deviation RDW Coeff of Mary Plt Count MPV Immature Gran % (Auto) Neut % (Auto) Lymph % (Auto) White % (Auto) Eos % (Auto) Baso % (Auto) Absolute Neuts (auto) Absolute Lymphs (auto) Nucleated RBC % Sodium Potassium Chloride Carbon Dioxide Anion Gap BUN Creatinine Estim Creat Clear Calc Est GFR (MDRD) Af Amer Est GFR (MDRD) Non-Af BUN/Creatinine Ratio Glucose Lactic Acid Calcium Urine Color Yellow Urine Clarity Clear Urine pH 5.0 Ur Specific Marshall 1.010 Urine Protein Negative Urine Glucose (UA) Normal Urine Ketones Negative Urine Occult Blood Negative Urine Nitrite Negative Urine Bilirubin Negative Urine Urobilinogen Normal Ur Leukocyte Esterase 25 H Urine RBC 0 SEEN Urine WBC 5-10 SEEN Ur Squamous Epith Cells 0 SEEN Urine Bacteria 0 SEEN Urine Mucus 0 SEEN Radiography Diagnostic Testing: Radiology Impression Abdomen/Pelvis CT 04/28/21 01:24 IMPRESSION: 1. Findings are consistent with acute sigmoid colon diverticulitis and/or localized colitis. There is no evidence for abscess. 2. Cholelithiasis without obvious acute cholecystitis. Electronically Signed: Osiris Platt MD at 5:47 EDT , Service support , Discharge Plan Triage Chief Complaint: Abd Pain ED Provider: Lizzie Larsen Dx/Rx/DC Orders Clinical Impression: Diverticulitis Instructions: ED Diverticulitis Prescriptions: New ciprofloxacin HCl [Cipro] 500 mg tablet 500 mg PO BID Qty: 20 RF: 0 metronidazole 500 mg tablet 500 mg PO TID Qty: 30 RF: 0 hydrocodone-acetaminophen 5-325 mg tablet 1 tab PO Q6H PRN (Reason: pain) 3 Days Qty: 10 RF: 0 ondansetron 4 mg tablet,disintegrating 4 mg PO Q8H PRN (Reason: nausea and vomiting) Qty: 10 RF: 0 No Action epinephrine 0.3 MG/0.3 ML auto-injector 0.3 mg IJ X1 PRN (Reason: Anaphylaxis) Qty: 2 RF: 1 acetaminophen 500 mg Tablet 1,000 mg PO Q6H PRN (Reason: Pain) RF: 0 oxycodone-acetaminophen [Percocet] 5-325 mg tablet 1 tab PO Q6H PRN (Reason: pain) 3 Days Qty: 12 RF: 0 ondansetron 4 mg tablet,disintegrating 4 mg PO Q8H PRN (Reason: nausea and vomiting) Qty: 10 RF: 0 Primary Care Provider: Jeff Diehl Referrals: Jeff Diehl MD [Primary Care Provider] - 1 Week Disposition Disposition: Home, Self Care
[2021-04-28 01:28] LABS: Absolute Lymphocyte Count 1.28 X10^3/uL (0.83-4.51); Absolute Neutrophil Count 5.9 X10^3/uL (2.0-7.7); Basophil# 0.04 X10^3/uL; Basophil% 0.5 % (0-1); Eosinophil# 0.04 X10^3/uL; Eosinophils% 0.5 % (0-5); Hematocrit 33.3 % (37-47); Hemoglobin 10.4 g/dL (12.0-15.0); Lymphocyte # 1.28 X10^3/ul (0.83-4.51); Lymphocyte % 17.4 % (19-41); Mean Corp Hgb Conc 31.2 g/dL (32-36); Mean Corpuscular Hgb 27.2 pg (27.0-32.0); Mean Corpuscular Volume 86.9 fL (81-99); Monocyte# 0.12 X10^3/uL; Monocyte% 1.6 % (0-10); NRBC Flagged by Analyzer 0 % (0-5); Neutrophil # 5.87 X10^3/uL (2.7-7.7); Neutrophil % 79.7 % (47-70); Platelet Count 284 K/mm3 (150-450); RBC Distribution Width CV 15.4 % (11.6-14.6); RBC Distribution Width SD 49.2 fl (35.1-43.9); Red Blood Count 3.83 M/mm3 (4.2-5.4); White Blood Count 7.4 K/mm3 (4.4-11.0)
[2021-04-28] MEDS: Ondansetron 4 MG/2 ML Vial IV ×2 (01:34→04:04)
[2021-04-28] MEDS: 0.9% Normal Saline 1,000 ML 150 ML IV (01:34)
[2021-04-28] MEDS: Morphine 4 MG/ML Syringe IV (01:35)
[2021-04-28 01:58] LABS: Anion Gap 6 (5-15); BUN 13 mg/dL (7-18); BUN/Creat Ratio 21.8 RATIO (10-20); Calcium,Total 8.4 mg/dL (8.5-10.1); Chloride 106 mmol/L (98-107); EST Glomerular Filtration Rate 105 mL/min (>60); Est Glom Filt Rate - Afr Amer 127 mL/min (>60); Estimated Creatinine Clearance 35.45 ml/min; Glucose 129 mg/dL (74-106); Potassium 3.9 mmol/L (3.5-5.1); Sodium Level 137 mmol/L (136-145)
[2021-04-28 02:40] LABS: Lactic Acid 1.2 mmol/L (0.4-1.9)
[2021-04-28 03:15] VITALS: BP 123/57; PULSE 80; RESP 18; O2SAT 92
[2021-04-28 03:42] LABS: Bacteria 0 SEEN /hpf (None Seen); Color, Urine Yellow (Yellow); Glucose, Dipstick Normal (Normal); Ketone-Dipstick Negative (Negative); Leukocyte Esterase-Dipstick 25 /ul (Negative); Mucous, Urine 0 SEEN /hpf (<or=2+); Nitrite-Dipstick Negative (Negative); Occult Blood-Urine Negative /ul (Negative); Protein-Dipstick Negative (Negative); Red Blood Cells-Urine 0 SEEN /hpf (0-5); Squamous Epithelial Cells - UA 0 SEEN /hpf (5-10); Urine Bilirubin Dipstick Negative (Negative); Urine Clarity Clear (Clear); Urine Urobilinogen Normal (Normal)
[2021-04-28 03:55] LABS: White Blood Cells 5-10 SEEN /hpf (0-5)
[2021-04-28] MEDS: DiphenhydrAMINE 50 MG/ML Syringe 25 MG IV (04:03)
[2021-04-28 04:05] VITALS: BP 135/77; PULSE 87; RESP 18; O2SAT 97
[2021-04-28 05:51] VITALS: BP 132/67; PULSE 98; RESP 19; O2SAT 97
[2021-04-28 07:37] VITALS: BP 155/67; PULSE 81; RESP 18; O2SAT 98
== END 2021-04-28 07:42 | disposition home or self-care (01) ==
PROVIDERS: Emergency Provider Emergency Medicine; PCP Family Medicine
DX: K57.92 Diverticulitis of intestine, part unspecified, without perforation or abscess without bleeding (principal); C56.9 Malignant neoplasm of unspecified ovary; M33.13 Other dermatomyositis without myopathy; E78.5 Hyperlipidemia, unspecified; J45.909 Unspecified asthma, uncomplicated; Z79.899 Other long term (current) drug therapy; Z86.16 Personal history of COVID-19
CPT/HCPCS: 36591; 74177; 80048; 81001; 83605; 85025; 96365; 96375; 96376; 99285; J7030; Q9967; A4216; J2405

== ENCOUNTER 2021-07-10 00:32 | Emergency (ER) | payer MEDICARE, SELFPAY ==
[2021-07-10 00:34] VITALS: BP 158/74; PULSE 97; RESP 22; TEMP 36.6; O2SAT 97; BMI 29.2
[2021-07-10 00:36] VITALS: BP 158/74; PULSE 97; RESP 22; TEMP 36.6; O2SAT 97
--- NOTE | 2021-07-10 00:57 | CT_ITS ---
STUDY: CT ABDOMEN AND PELVIS WITH CONTRAST REASON FOR EXAM: Female, 76 years old. left sided abd pain RADIATION DOSAGE (If Supplied By Facility): CTDIvol = ( 20.53 ) mGy, DLP = ( 855.91 ) mGycm TECHNIQUE: Transaxial images were obtained from the dome of the diaphragm to the symphysis pubis without oral contrast. IV 100mL Isovue-300 was administered. Sagittal and coronal images were reconstructed. Individualized dose optimization techniques were used for this CT. COMPARISON: 04/28/2021 FINDINGS: The visualized lung bases are unremarkable. The visualized portions of the heart are within normal limits. Normal liver. There is a solitary gallstone. Normal spleen. There is diffuse atrophy of the pancreas. Normal bilateral adrenal glands. Normal right kidney. Normal left kidney. Normal visualized stomach. Normal small intestine. In the region of the rectosigmoid colon, again noted is some wall thickening with subtle pericolonic inflammation however, not definitively changed as compared to the prior exam. Unsure if this is a chronic process versus recurrent acute uncomplicated diverticulitis. There is non-visualization of the appendix. Prominent fluid distention of the right hemicolon and parts of the transverse colon suggesting enteritis. Normal abdominal aorta. Normal inferior vena cava. Normal retroperitoneum. Normal urinary bladder. There is absence of the uterus consistent with a prior hysterectomy. Normal abdominal wall. Normal osseous structures. CT/Abdomen/Pelvis W IV Cont ONLY IMPRESSION: As compared to the prior exam, there is no definitively changed wall thickening with subtle pericolonic inflammation in the rectosigmoid colon. Unsure if this is a chronic process versus recurrent acute uncomplicated diverticulitis. Recommend clinical correlation. Mild fluid distended ascending and transverse colon suggesting colitis as well Electronically Signed: Angel Snell DO at 3:40 EST Tel , Service support ,
--- NOTE | 2021-07-10 01:00 | EDS_ITS ---
HPI HPI - GI History of Present Illness Chief Complaint: Abd Pain Informant: patient and spouse/S.O. Abdominal Pain/Flank Pain Onset: Today Context: Gradual Onset Timing: Continuous Quality: Aching Location: LUQ Current Severity: Moderate Maximum Severity: Moderate Worsened by: Nothing Relieved by: Nothing Nausea/Vomiting/Emesis GI Symptom: Negative for Nausea and Vomiting Diarrhea/Melena/Hematochezia GI Symptom: Negative for Diarrhea, Melena and Hematochezia Associated Symptoms Associated Symptoms: Negative for Dysuria, Frequency, Hematuria and Urgency Narrative Narrative: 76-year-old female history of ovarian cancer with hysterectomy in February of this year. Also history of prior diverticulitis. States tonight several hours ago started left upper quadrant abdominal pain. She had similar pain to this earlier this year with diverticulitis. She denies nausea or vomiting. No diarrhea. No fever or chills. No dysuria. Had a bowel movement today. Denies any melena. Prior similar symptoms: Yes Recent Illness/Hospitalization: No PFSH PFSH Medical History Alcohol use Anemia Dermatomyositis High cholesterol History of asthma History of COVID-19 History of stress test Hyperlipidemia Memory deficit Non-smoker Ovarian cancer Shortness of breath on exertion Home Medications epinephrine 0.3 mg IJ X1 PRN #2 auto.injct 01/13/19 [Rx Last Taken Unknown] oxycodone-acetaminophen [Percocet] 1 tab PO Q6H PRN 3 Days #12 tab 04/07/21 [Rx Last Taken Unknown] ondansetron 4 mg PO Q8H PRN #10 tab 04/28/21 [Rx Last Taken Unknown] amoxicillin-pot clavulanate [Augmentin] 1 tab PO BID 10 Days #20 tab 07/10/21 [Rx Last Taken Unknown] gabapentin 100 mg PO BID 07/10/21 [History Last Taken Unknown] ondansetron 4 mg PO Q8H PRN 4 Days #10 tab 07/10/21 [Rx Last Taken Unknown] oxycodone-acetaminophen 1 tab PO Q6H PRN 5 Days #14 tab 07/10/21 [Rx Last Taken Unknown] potassium chloride [Klor-Con M20] 20 meq PO DAILY 07/10/21 [History Last Taken Unknown] Allergy/AdvReac Type Severity Reaction Status Date / Time mushroom Allergy Mild Hives Verified 07/10/21 00:34 aspirin Allergy Angioedema, Verified 07/10/21 00:34 SOB, HIVES Iodinated Contrast Media Allergy Hives Verified 07/10/21 00:34 [Iodinated Contrast Media - Oral and] shellfish derived Allergy Hives Verified 07/10/21 00:34 strawberry Allergy Hives Verified 07/10/21 00:34 Family History Mother Cancer pancreatic Father Hypertension Surgical History History of ankle surgery History of bilateral tubal ligation History of colonoscopy History of total hysterectomy S/P tubal ligation Status post ovarian cystectomy Social History Smoking Status: Never smoker alcohol intake: current alcohol intake frequency: holidays/special occasions only substance use type: does not use ROS ROS ED ROS Narrative Abdominal pain. Review of Systems ROS Unobtainable: Denies due to encephalopathy Constitutional Constitutional ED: Denies fever(s) ENT ENT ED: Denies ear pain Cardiovascular Cardiovascular: Denies chest pain Respiratory/Chest Respiratory/Chest: Denies cough or dyspnea Gastrointestinal Gastrointestinal: Reports abdominal pain; Denies constipation, diarrhea, melena, nausea or vomiting Genitourinary Genitourinary ED: Denies dysuria or hematuria Musculoskeletal Musculoskeletal: Denies myalgias Integumentary Denies rash Neurologic Neurologic: Denies headache(s) Psychiatric Psychiatric: Denies depression Endocrine Endocrinology: Denies polyuria Hematologic/Lymphatic Hematologic/Lymphatic: Denies easy bruising Allergic/Immunologic Allergic/Immunologic ED: Denies urticaria EXAM Physical Exam Narrative Exam Narrative: 76-year-old female no acute distress complaint left-sided abdominal pain. Vital signs stable afebrile. at bedside. HEENT exam unremarkable. Neck nontender. Lungs clear to auscultation bilaterally. Heart regular rhythm no murmur. Abdomen soft. Tender left-sided. No rebound, guarding rigidity. No pulsatile mass. Right upper right lower quadrant unremarkable. Moving all 4 extremities. No edema. Back nontender. Neurologically she is awake and alert with no focal motor deficits. Const Vital Signs: 07/10/21 00:34 07/10/21 00:36 07/10/21 01:39 Temperature 98 F 98 F 98 F Temperature Source Temporal Temporal Temporal Pulse Rate 97 97 85 Respiratory Rate 22 H 22 H 16 Blood Pressure 158/74 H 158/74 H 132/76 H Blood Pressure Mean 102 102 94 Pulse Ox 97 97 97 Oxygen Delivery Method Room Air Room Air 07/10/21 02:00 07/10/21 04:00 Temperature 98.1 F 97 F L Temperature Source Temporal Temporal Pulse Rate 87 79 Respiratory Rate 16 18 Blood Pressure 128/48 H 119/43 L Blood Pressure Mean 74 68 Pulse Ox 96 97 Oxygen Delivery Method Positive well nourished and well developed; Negative for obese, cachectic, contractures or unkempt General Appearance ED: well developed and NAD; Negative for unkempt, cachectic, contractures or pallor Nutritional Appearance: Negative for cachectic or obese HEENT Reports moist mucous membranes normocephalic and atraumatic Eyes PERRL and EOMs intact bilaterally General Eye ED: Negative for pale conjunctiva or scleral icterus Neck no lymphadenopathy, supple and no JVD General: Negative for tenderness Resp normal respiratory effort and clear to auscultation bilaterally Auscultation: Negative for rales, rhonchi or wheezes Cardio regular rate, regular rhythm and no murmurs; Negative for S1 normal heart sound or S2 normal heart sound GI non-distended and no masses; Negative for non-tender Auscultation: normoactive bowel sounds; Negative for hyperactive bowel sounds or hypoactive bowel sounds Palpation: soft and tender; Negative for guarding or rigid Back/Spine no CVA tenderness General Back: Negative for CVA tenderness Extremity full ROM General Extremety ED: Negative for edema or tenderness General Extremity: Negative for edema Neuro CN's II-XII intact bilaterally and moves all extremities Sensorium / Orientation: alert, oriented to person, oriented to place and oriented to time; Negative for confused, lethargic or stuporous Psych mental status grossly normal and thought process normal Appearance: Negative for unkempt Attitude: No agitated Mood & Affect: Negative for depressed or tearful Skin no wounds General Skin Exam: Negative for jaundice or pallor Lesions: no lesions Rashes: no rashes MDM MDM MDM Narrative Medical decision making narrative: 76-year-old female left-sided abdominal pain. CAT scan labs being obtained. She will be treated with IV fluids, Zofran and morphine. Multiple repeat exams. Patient continued pain was given a second dose of morphine. At 2:25 AM she had recurrent nausea which she will be given more Zofran. Her vital signs are stable we are awaiting her CT. Multiple repeat exams patient is received a total of 3 doses of Zofran currently her nausea is improved. Her pain is much improved after pain medication. I discussed with her and her over test results. I think this is recurrent diverticulitis. She will be placed on Augmentin which she is used before in the past. She written for pain medication. She already has an nausea medication at home. I offer the patient to be admitted to help control her nausea and pain but her is a diabetic and she wants to be at home to help care for him. She understands return if worse. Patient doing well at 4:40 AM wants to be discharged to home. She will be given a dose of Augmentin prior to discharge. Lab Data Attestation: I reviewed the patient's lab results. Lab results narrative: CBC shows a white count of 4.0. Hemoglobin 9.3. I did review her latest CBCs and her hemoglobin has been trending down over the last several months. Platelets 233. Electrolytes unremarkable gap of 8 normal BUN and creatinine. Normal liver enzymes. Glucose 133. Lipase of 43. Labs: Laboratory Results - last 24 hr 07/10/21 07/10/21 01:13 01:13 WBC 4.0 L RBC 3.22 L Hgb 9.3 L Hct 27.9 L MCV 86.6 MCH 28.9 MCHC 33.3 RDW Std Deviation 56.1 H RDW Coeff of Mary 17.5 H Plt Count 233 MPV 9.6 Immature Gran % (Auto) 0.000 Neut % (Auto) 71.5 H Lymph % (Auto) 24.2 Centre % (Auto) 2.5 Eos % (Auto) 1.3 Baso % (Auto) 0.5 Absolute Neuts (auto) 2.8 Absolute Lymphs (auto) 0.96 Nucleated RBC % 0 Sodium 138 Potassium 3.8 Chloride 104 Carbon Dioxide 26.0 Anion Gap 8 BUN 11 Creatinine 0.63 Estim Creat Clear Calc 35.45 Est GFR (MDRD) Af Amer 119 Est GFR (MDRD) Non-Af 98 BUN/Creatinine Ratio 17.5 Glucose 133 H Calcium 8.5 Total Bilirubin 0.30 AST 21 ALT 28 Alkaline Phosphatase 86 Total Protein 6.8 Albumin 2.8 L Globulin 4.0 Albumin/Globulin Ratio 0.7 L Lipase 43 L Radiography Diagnostic Testing: Clinical Impression(s) from Imaging Studies Abdomen/Pelvis CT 07/10/21 00:57 IMPRESSION: As compared to the prior exam, there is no definitively changed wall thickening with subtle pericolonic inflammation in the rectosigmoid colon. Unsure if this is a chronic process versus recurrent acute uncomplicated diverticulitis. Recommend clinical correlation. Mild fluid distended ascending and transverse colon suggesting colitis as well Electronically Signed: Angel Snell DO at 3:40 EST Tel , Service support , Discharge Plan Triage Chief Complaint: Abd Pain ED Provider: Yung Oconnell Dx/Rx/DC Orders Clinical Impression: Abdominal pain, Ovarian cancer, Anemia, Diverticulitis Instructions: ED Diverticulitis Prescriptions: New amoxicillin-pot clavulanate [Augmentin] 875-125 mg tablet 1 tab PO BID 10 Days Qty: 20 RF: 0 oxycodone-acetaminophen 5-300 mg tablet 1 tab PO Q6H PRN (Reason: pain) 5 Days Qty: 14 RF: 0 ondansetron 4 mg tablet,disintegrating 4 mg PO Q8H PRN (Reason: nausea and vomiting) 4 Days Qty: 10 RF: 0 No Action epinephrine 0.3 MG/0.3 ML auto-injector 0.3 mg IJ X1 PRN (Reason: Anaphylaxis) Qty: 2 RF: 1 oxycodone-acetaminophen [Percocet] 5-325 mg tablet 1 tab PO Q6H PRN (Reason: pain) 3 Days Qty: 12 RF: 0 ondansetron 4 mg tablet,disintegrating 4 mg PO Q8H PRN (Reason: nausea and vomiting) Qty: 10 RF: 0 potassium chloride [Klor-Con M20] 20 mEq tablet,ER particles/crystals 20 meq PO DAILY RF: 0 gabapentin 100 mg capsule 100 mg PO BID RF: 0 Primary Care Provider: Jeff Diehl Referrals: Jeff Diehl MD [Primary Care Provider] - 3-5 Days if not improving Activity Restrictions/Additional Instructions: Plenty of fluids and rest. Augmentin which is the antibiotic twice daily till gone. Zofran as needed for nausea. Oxycodone for pain. Make sure you are drinking plenty of fluids and taking them a lot of fiber to prevent constipation. Follow-up with your doctor if not improving or return emergency department if you are feeling a lot worse. Follow-up with your doctor in the next several weeks to have your blood count rechecked. Today it was running low at 9.3. Disposition Disposition: Home, Self Care
[2021-07-10] MEDS: Morphine 4 MG/ML Syringe IV ×2 (01:11→01:34)
[2021-07-10] MEDS: Ondansetron 4 MG/2 ML Vial IV ×3 (01:12→04:29)
[2021-07-10 01:20] LABS: Absolute Lymphocyte Count 0.96 X10^3/uL (0.83-4.51); Absolute Neutrophil Count 2.8 X10^3/uL (2.0-7.7); Basophil# 0.02 X10^3/uL; Basophil% 0.5 % (0-1); Eosinophil# 0.05 X10^3/uL; Eosinophils% 1.3 % (0-5); Hematocrit 27.9 % (37-47); Hemoglobin 9.3 g/dL (12.0-15.0); Lymphocyte # 0.96 X10^3/ul (0.83-4.51); Lymphocyte % 24.2 % (19-41); Mean Corp Hgb Conc 33.3 g/dL (32-36); Mean Corpuscular Hgb 28.9 pg (27.0-32.0); Mean Corpuscular Volume 86.6 fL (81-99); Mean Platelet Vol. 9.6 fl (6.2-12.0); Monocyte% 2.5 % (0-10); NRBC Flagged by Analyzer 0 % (0-5); Neutrophil # 2.84 X10^3/uL (2.7-7.7); Neutrophil % 71.5 % (47-70); POSITIVE MORPHOLOGY YES; Platelet Count 233 K/mm3 (150-450); RBC Distribution Width CV 17.5 % (11.6-14.6); RBC Distribution Width SD 56.1 fl (35.1-43.9); Red Blood Count 3.22 M/mm3 (4.2-5.4)
[2021-07-10 01:37] LABS: ALB/GLOB Ratio 0.7 RATIO (0.9-2.4); AST(SGOT) 21 U/L (15-37); Alanine Aminotransfer ALT/SGPT 28 U/L (13-56); Albumin, Serum 2.8 g/dL (3.2-5.0); Alkaline Phosphatase 86 U/L (45-117); Anion Gap 8 (5-15); BUN 11 mg/dL (7-18); BUN/Creat Ratio 17.5 RATIO (10-20); Calcium,Total 8.5 mg/dL (8.5-10.1); Chloride 104 mmol/L (98-107); Creatinine, Serum 0.63 mg/dL (0.55-1.02); EST Glomerular Filtration Rate 98 mL/min (>60); Est Glom Filt Rate - Afr Amer 119 mL/min (>60); Estimated Creatinine Clearance 35.45 ml/min; Glucose 133 mg/dL (74-106); Lipase 43 U/L (73-393); Potassium 3.8 mmol/L (3.5-5.1); Protein, Total 6.8 g/dL (6.4-8.2); Sodium Level 138 mmol/L (136-145)
[2021-07-10 01:39] VITALS: BP 132/76; PULSE 85; RESP 16; TEMP 36.6; O2SAT 97
[2021-07-10 01:42] LABS: Differential Indicated SCAN CRITERIA MET
[2021-07-10] MEDS: MethylPREDNISolone 125 MG/2 ML Vial IV (01:53)
[2021-07-10 02:00] VITALS: BP 128/48; PULSE 87; RESP 16; TEMP 36.7; O2SAT 96
[2021-07-10 04:00] VITALS: BP 119/43; PULSE 79; RESP 18; TEMP 36.1; O2SAT 97
[2021-07-10] MEDS: Amox/Clavulanate 875 MG Tablet PO (05:07)
== END 2021-07-10 05:08 | disposition home or self-care (01) ==
PROVIDERS: Emergency Provider Emergency Medicine; PCP Family Medicine
DX: R10.12 Left upper quadrant pain (principal); C56.9 Malignant neoplasm of unspecified ovary; D64.9 Anemia, unspecified; K57.92 Diverticulitis of intestine, part unspecified, without perforation or abscess without bleeding; E78.5 Hyperlipidemia, unspecified; J45.909 Unspecified asthma, uncomplicated; Z79.899 Other long term (current) drug therapy; Z86.16 Personal history of COVID-19; Z87.19 Personal history of other diseases of the digestive system
CPT/HCPCS: 36591; 74177; 80053; 83690; 85025; 96374; 96375; 96376; 99282; J7030; Q9967; A4216; J2405

== ENCOUNTER 2022-06-04 06:40 | Emergency (ER) | payer MEDICARE, SELFPAY ==
[2022-06-04 06:41] VITALS: BP 147/76; PULSE 109; RESP 18; TEMP 35.9; O2SAT 95; BMI 36.0
--- NOTE | 2022-06-04 06:45 | EX.ED.DYSGE1 ---
HPI History of Present Illness Chief Complaint: Allergic Reaction Detail of Chief Complaint: Allergic reaction/dyspnea Informant: patient Narrative Narrative: Patient presents the emergency department complaint of trouble breathing and thinks she may be having an allergic reaction. Patient states that she ate sugar coated jelly type food item that was on her nightstand and immediately felt a burning to the back of her throat and trouble breathing. Patient thinks she is having allergic reaction. Patient is not sure exactly what she ate. She denies chest pain. Patient does have history of allergies to strawberries and shellfish. [facility] Medical History Alcohol use Anemia Dermatomyositis High cholesterol History of asthma History of COVID-19 History of stress test Hyperlipidemia Memory deficit Non-smoker Ovarian cancer Shortness of breath on exertion Home Medications epinephrine 0.3 mg/0.3 mL injection, auto-injector 0.3 mg (0.3 mL) IJ X1 PRN Anaphylaxis ##2 01/13/19 [Rx Last Taken Unknown] oxycodone-acetaminophen 5 mg-325 mg tablet (Percocet) 1 tab PO Q6H PRN pain 3 days #12 tabs 04/07/21 [Rx Last Taken Unknown] ondansetron 4 mg disintegrating tablet 4 mg PO Q8H PRN nausea and vomiting #10 tabs 04/28/21 [Rx Last Taken Unknown] amoxicillin 875 mg-potassium clavulanate 125 mg tablet (Augmentin) 1 tab PO BID 10 days #20 tabs 07/10/21 [Rx Last Taken Unknown] gabapentin 100 mg capsule 100 mg PO BID 07/10/21 [History Last Taken Unknown] ondansetron 4 mg disintegrating tablet 4 mg PO Q8H PRN nausea and vomiting 4 days #10 tabs 07/10/21 [Rx Last Taken Unknown] oxycodone-acetaminophen 5 mg-300 mg tablet 1 tab PO Q6H PRN pain 5 days #14 tabs 07/10/21 [Rx Last Taken Unknown] potassium chloride 20 mEq tablet,extended release(part/cryst) (Klor-Con M) 20 meq PO DAILY 07/10/21 [History Last Taken Unknown] Allergy/AdvReac Type Severity Reaction Status Date / Time mushroom Allergy Mild Hives Verified 07/10/21 00:34 aspirin Allergy Angioedema, Verified 07/10/21 00:34 SOB, HIVES Iodinated Contrast Media Allergy Hives Verified 07/10/21 00:34 [Iodinated Contrast Media - Oral and] shellfish derived Allergy Hives Verified 07/10/21 00:34 strawberry Allergy Hives Verified 07/10/21 00:34 Family History Mother Cancer pancreatic Father Hypertension Surgical History History of ankle surgery History of bilateral tubal ligation History of colonoscopy History of total hysterectomy S/P tubal ligation Status post ovarian cystectomy Social History Smoking Status: Never smoker alcohol intake: current alcohol intake frequency: holidays/special occasions only substance use type: does not use ROS ROS ED Review of Systems ROS Unobtainable: other Constitutional Constitutional ED: Reports lethargy; Denies chills, fever(s), sweats or weight loss Eyes Eyes: Denies blurry vision, change in vision or diplopia ENT ENT ED: Denies rhinorrhea or sore throat Cardiovascular Cardiovascular: Denies chest pain, orthopnea or racing heartbeat Respiratory/Chest Respiratory/Chest: Reports dyspnea; Denies cough, dyspnea on exertion, orthopnea or sputum Gastrointestinal Gastrointestinal: Denies abdominal pain, diarrhea, nausea or vomiting Genitourinary Genitourinary ED: Denies dysuria, hematuria or urinary frequency Musculoskeletal Musculoskeletal: Denies arthralgias, back pain, myalgias or neck pain Integumentary Denies abscess, Abrasions or rash Neurologic Neurologic: Denies headache(s) or weakness Psychiatric Psychiatric: Denies anxiety, depression or suicidal thoughts Endocrine Endocrinology: Denies polydipsia, polyphagia or polyuria Hematologic/Lymphatic Hematologic/Lymphatic: Denies easy bleeding, easy bruising or lymphadenopathy Allergic/Immunologic Allergic/Immunologic ED: Denies mouth swelling, tongue swelling or urticaria EXAM Physical Exam Const Vital Signs: 06/04/22 06:41 Temperature 96.7 F L Temperature Source Oral Pulse Rate 109 H Respiratory Rate 18 Blood Pressure 147/76 H Blood Pressure Mean 99 Pulse Ox 95 Oxygen Delivery Method Room Air Positive well nourished and well developed General Appearance ED: well developed and NAD HEENT Reports TM's clear and moist mucous membranes normocephalic and atraumatic; Negative for trauma or tenderness Tympanic Membrane ED: Yes TM's clear Eyes PERRL and EOMs intact bilaterally General Eye ED: Negative for pale conjunctiva or scleral icterus Neck no lymphadenopathy, supple and no JVD General: Negative for tenderness Chest Wall inspection of chest normal and palpation of chest normal Chest: Negative for tenderness Resp normal respiratory effort and clear to auscultation bilaterally Resp Narrative: Patient presents coughing. No significant wheezing noted. Effort and Inspection: Negative for respiratory distress or pain with movement Auscultation: Negative for rhonchi, wheezes or diminished lung sounds Cardio regular rate, regular rhythm, S1 normal heart sound, S2 normal heart sound and no murmurs Peripheral Pulses: pulses 2+ throughout GI normal to inspection, nondistended, normoactive bowel sounds, soft to palpation, non-tender, non-distended and no masses Back/Spine no CVA tenderness and no thoracic nor lumbar tenderness Extremity normal to inspection General Extremety ED: Negative for edema General Extremity: Negative for edema Neuro oriented x3, CN's II-XII intact bilaterally, no sensory deficits noted and gait normal Sensorium / Orientation: awake, alert, oriented to person, oriented to place and oriented to time Motor Exam: strength 5/5 throughout and strength abnormal Psych mental status grossly normal Skin no rashes or lesions noted and no wounds MDM MDM MDM Narrative Medical decision making narrative: I line established on arrival. Patient was given racemic aerosol. Patient given Solu-Medrol 125 mg IV as well as Benadryl and Pepcid. Care of patient will be turned over to morning physician awaiting observation. Final disposition for suspected allergic reaction. Discharge Plan Triage Chief Complaint: Allergic Reaction ED Provider: Sona Bailey Dx/Rx/DC Orders Clinical Impression: Allergic reaction Prescriptions: No Action epinephrine 0.3 MG/0.3 ML auto-injector 0.3 mg IJ X1 PRN (Reason: Anaphylaxis) Qty: 2 1RF Rx Instructions: OK to dispense generic oxycodone-acetaminophen [Percocet] 5-325 mg tablet 1 tab PO Q6H PRN (Reason: pain) 3 Days Qty: 12 0RF ondansetron 4 mg tablet,disintegrating 4 mg PO Q8H PRN (Reason: nausea and vomiting) Qty: 10 0RF potassium chloride [Klor-Con M20] 20 mEq tablet,ER particles/crystals 20 meq PO DAILY gabapentin 100 mg capsule 100 mg PO BID amoxicillin-pot clavulanate [Augmentin] 875-125 mg tablet 1 tab PO BID 10 Days Qty: 20 0RF oxycodone-acetaminophen 5-300 mg tablet 1 tab PO Q6H PRN (Reason: pain) 5 Days Qty: 14 0RF ondansetron 4 mg tablet,disintegrating 4 mg PO Q8H PRN (Reason: nausea and vomiting) 4 Days Qty: 10 0RF Primary Care Provider: Jeff Diehl Referrals: Jeff Diehl MD [Primary Care Provider] -
[2022-06-04] MEDS: MethylPREDNISolone 125 MG/2 ML Vial IV (06:48)
[2022-06-04 06:49] VITALS: PULSE 116; RESP 24
[2022-06-04] MEDS: DiphenhydrAMINE 50 MG/ML Syringe IV (06:49)
[2022-06-04] MEDS: Racepinephrine HCl 0.5 ML VIAL.NEB. INHALATION (06:49)
[2022-06-04] MEDS: Famotidine 200 MG/20 ML MDV 20 MG in 0.9% Normal Saline (Pres. free 8 ML 300 MG IV (07:10)
[2022-06-04 08:20] VITALS: BP 105/46; PULSE 84; RESP 20; O2SAT 98
[2022-06-04 11:07] VITALS: PULSE 88; RESP 17; TEMP 36.6
== END 2022-06-04 11:09 | disposition home or self-care (01) ==
PROVIDERS: Emergency Provider Emergency Medicine; PCP Family Medicine; Visit Provider Emergency Medicine
DX: T78.40XA Allergy, unspecified, initial encounter (principal); E78.00 Pure hypercholesterolemia, unspecified; R42 Dizziness and giddiness; R06.00 Dyspnea, unspecified
CPT/HCPCS: 94640; 96374; 96375; 99282; A4216; J3490

== ENCOUNTER 2022-09-04 23:18 | Emergency (ER) | payer MEDICARE, SELFPAY ==
[2022-09-04 23:19] VITALS: BP 140/71; PULSE 113; RESP 16; TEMP 36.1; O2SAT 96; BMI 29.2
--- NOTE | 2022-09-05 00:14 | CT_ITS ---
INDICATION: abd pain EXAMINATION: CT ABDOMEN AND PELVIS WITH CONTRAST - CT Abdomen And Pelvis W/ Contrast Injection TECHNIQUE: Helically acquired images were obtained of the abdomen and pelvis following IV contrast. A radiation dose optimization technique was used for this scan. IV Contrast dosage and agent: Oral contrast: None. COMPARISON: None. FINDINGS: LOWER CHEST: Lung bases are clear. No cardiomegaly or pericardial effusion. LIVER: Homogeneous. No focal mass. GALLBLADDER AND BILIARY TREE: There is a small single gallstone. No gallbladder distension or wall edema. No intra- or extrahepatic biliary ductal dilation. PANCREAS: No focal cystic or solid mass. SPLEEN: Normal size without focal cystic or solid mass. ADRENAL GLANDS: No nodules. KIDNEYS AND URETERS: Normal renal size and position. No hydronephrosis. PERITONEUM: No ascites or free air. No other fluid collection. BOWEL: No evidence of acute appendicitis. Descending colon and sigmoid diverticulosis. He No stomach or bowel distension. No focal inflammatory change. LYMPH NODES: No enlarged mesenteric or retroperitoneal lymph nodes. VESSELS: Aorta is non-dilated. URINARY BLADDER: Unremarkable. REPRODUCTIVE ORGANS: No pelvic masses. ABDOMINAL WALL: No discrete abdominal or pelvic wall hernia. BONES: No lytic or blastic abnormality. CT/Abdomen/Pelvis W IV Cont ONLY IMPRESSION: There is a cyst in the segment #4 of the liver measures 1.8 cm. Cholelithiasis. Descending colon and sigmoid diverticulosis. Electronically Signed: Nataliya Root MD at 2:44 EST ,
--- NOTE | 2022-09-05 00:17 | EDS_ITS ---
HPI HPI - GI History of Present Illness Chief Complaint: Nausea/Vomiting Informant: patient Abdominal Pain/Flank Pain Onset: Today Context: Sudden Onset Timing: Continuous Quality: Aching and Cramping Location: Diffuse Current Severity: Mild Maximum Severity: Mild Worsened by: Nothing Relieved by: Nothing Nausea/Vomiting/Emesis GI Symptom: Positive for Nausea and Vomiting Onset: Today Quality: Negative for Nonbilious Severity: Mild Diarrhea/Melena/Hematochezia GI Symptom: Positive for Diarrhea; Negative for Melena or Hematochezia Onset: Today Severity: Mild Associated Symptoms Associated Symptoms: Negative for Dysuria, Frequency, Hematuria or Urgency Narrative Narrative: 77-year-old female history of anemia and ovarian cancer with a prior hysterectomy. Still has her appendix and gallbladder. States that her was ill over the weekend with nausea vomiting. She started having symptoms 2 hours ago with abdominal cramping and diffuse pain. Chills but no fever. No dysuria. No history of bowel obstruction. She had loose stools about 3 hours ago. Prior similar symptoms: Yes Recent Illness/Hospitalization: No PFSH PFS Medical History Alcohol use Anemia Dermatomyositis High cholesterol History of asthma History of COVID-19 History of stress test Hyperlipidemia Memory deficit Non-smoker Ovarian cancer Shortness of breath on exertion Home Medications epinephrine 0.3 mg/0.3 mL injection, auto-injector 0.3 mg (0.3 mL) IJ X1 PRN Anaphylaxis ##2 01/13/19 [Rx Last Taken Unknown] oxycodone-acetaminophen 5 mg-325 mg tablet (Percocet) 1 tab PO Q6H PRN pain 3 days #12 tabs 04/07/21 [Rx Last Taken Unknown] ondansetron 4 mg disintegrating tablet 4 mg PO Q8H PRN nausea and vomiting #10 tabs 04/28/21 [Rx Last Taken Unknown] amoxicillin 875 mg-potassium clavulanate 125 mg tablet (Augmentin) 1 tab PO BID 10 days #20 tabs 07/10/21 [Rx Last Taken Unknown] gabapentin 100 mg capsule 100 mg PO BID 07/10/21 [History Last Taken Unknown] ondansetron 4 mg disintegrating tablet 4 mg PO Q8H PRN nausea and vomiting 4 days #10 tabs 07/10/21 [Rx Last Taken Unknown] oxycodone-acetaminophen 5 mg-300 mg tablet 1 tab PO Q6H PRN pain 5 days #14 tabs 07/10/21 [Rx Last Taken Unknown] potassium chloride 20 mEq tablet,extended release(part/cryst) (Klor-Con M) 20 meq PO DAILY 07/10/21 [History Last Taken Unknown] ondansetron 4 mg disintegrating tablet 4 mg PO Q6H PRN nausea and vomiting #7 tabs 09/05/22 [Rx Last Taken Unknown] Allergy/AdvReac Type Severity Reaction Status Date / Time mushroom Allergy Mild Hives Verified 09/04/22 23:21 aspirin Allergy Angioedema, Verified 09/04/22 23:21 SOB, HIVES Iodinated Contrast Media Allergy Hives Verified 09/04/22 23:21 [Iodinated Contrast Media - Oral and] shellfish derived Allergy Hives Verified 09/04/22 23:21 strawberry Allergy Hives Verified 09/04/22 23:21 Family History Mother Cancer pancreatic Father Hypertension Surgical History History of ankle surgery History of bilateral tubal ligation History of colonoscopy History of total hysterectomy S/P tubal ligation Status post ovarian cystectomy Social History Smoking Status: Never smoker alcohol intake: current alcohol intake frequency: holidays/special occasions only substance use type: does not use ROS ROS ED ROS Narrative Nausea and vomiting. Diarrhea. Abdominal pain. Review of Systems ROS Unobtainable: Denies due to encephalopathy Constitutional Constitutional ED: Reports chills; Denies fever(s) ENT ENT ED: Denies ear pain Cardiovascular Cardiovascular: Denies chest pain Respiratory/Chest Respiratory/Chest: Denies cough Gastrointestinal Gastrointestinal: Reports abdominal pain, diarrhea, nausea and vomiting; Denies constipation or melena Genitourinary Genitourinary ED: Denies dysuria or hematuria Musculoskeletal Musculoskeletal: Denies arthralgias Integumentary Denies abscess Neurologic Neurologic: Denies headache(s) Psychiatric Psychiatric: Denies anxiety Endocrine Endocrinology: Denies polydipsia Hematologic/Lymphatic Hematologic/Lymphatic: Denies easy bleeding Allergic/Immunologic Allergic/Immunologic ED: Denies mouth swelling or tongue swelling EXAM Physical Exam Narrative Exam Narrative: 77-year-old female vital signs are stable afebrile. Does not look septic or toxic. Looks mildly dehydrated. H EENT exam dummies members. Neck nontender. Lungs clear to auscultation bilaterally. Heart regular rhythm rate about 110 no murmur. Chest wall nontender. Abdomen soft diffusely tender. No peritoneal signs. No hernia or mass. Minimally distended. Not tympanitic. Both right upper and right lower quadrants have no specific tenderness. Moving all 4 extremities. Nontender no edema. Back nontender. Neurologically she is awake and alert. Moving all 4 extremities. present in room. Const Vital Signs: 09/04/22 23:19 09/05/22 00:46 Temperature 97 F L 98.6 F Temperature Source Temporal Temporal Pulse Rate 113 H Respiratory Rate 16 Blood Pressure 140/71 H Blood Pressure Mean 94 Pulse Ox 96 Positive well nourished and well developed; Negative for cachectic, contractures or unkempt General Appearance ED: well developed; Negative for unkempt, cachectic, contractures or pallor Nutritional Appearance: Negative for cachectic HEENT Reports dry mucous membranes; Denies moist mucous membranes normocephalic and atraumatic; Negative for trauma or tenderness Mouth ED: Yes dry mucous membranes Mouth: dry mucous membranes Eyes PERRL and EOMs intact bilaterally General Eye ED: Negative for pale conjunctiva or scleral icterus Neck no lymphadenopathy, supple and no JVD General: Negative for tenderness Carotids: Negative for other Lymph Lymphatic: Negative for other Resp normal respiratory effort and clear to auscultation bilaterally Effort and Inspection: Negative for respiratory distress Auscultation: Negative for rales, rhonchi or wheezes Cardio regular rhythm, S1 normal heart sound, S2 normal heart sound and no murmurs; Negative for regular rate Rate: tachycardic GI no masses; Negative for non-tender or non-distended Inspection: abdominal distention Auscultation: normoactive bowel sounds Palpation: soft and tender; Negative for guarding, rigid, hepatomegaly, splenomegaly, hernia, mass, pulsatile mass or rebound tenderness present Back/Spine no CVA tenderness General Back: Negative for CVA tenderness Cervical Spine: Negative for cervical spine tenderness Thoracic Spine / Upper Back: Negative for thoracic spinal tenderness Lumbar Spine / Lower Back: Negative for lumbar spinal tenderness Coccyx: Negative for other Extremity full ROM General Extremety ED: Negative for edema or tenderness General Extremity: Negative for edema Neuro CN's II-XII intact bilaterally and moves all extremities Sensorium / Orientation: alert, oriented to person, oriented to place and oriented to time; Negative for orientation impaired, confused, lethargic or stuporous Psych mental status grossly normal and thought process normal Appearance: Negative for unkempt Attitude: No agitated Mood & Affect: Negative for depressed, anxious or tearful Skin no wounds General Skin Exam: Negative for jaundice or pallor Lesions: no lesions Rashes: no rashes Trauma: Negative for abrasion Nails: Negative for discolored MDM MDM MDM Narrative Medical decision making narrative: 81-year-old female with nausea vomiting diarrhea and abdominal pain. This may all be from a viral gastroenteritis because her had similar symptoms several days ago. However she is diffusely tender over her abdomen he was complaining of abdominal pain she will get a CAT scan and labs. IV fluids for dehydration and IV Zofran for nausea. 2 mg of morphine for pain. I am pretreating her with Solu-Medrol due to a contrast allergy. Repeat exam patient is returning from CAT scan at 1:37 AM. She is feeling improved. Were awaiting the CAT scan results. Abdomen is benign. She is currently nontender. Nausea is resolved. She is dri nking water. I did review her old lab and records. Patient doing well at 3:11 AM. Abdomen is benign. Her CAT scan was read as negative. There is a small gallstone. No signs of cholecystitis. Normal appendix. No obstruction. Clinically her exam and history are consistent with a viral gastroenteritis. Her had a recent illness also. She will be discharged home with Zofran as needed for nausea. Fluids and rest. Increase diet slowly. Return if worse. Otherwise follow-up with her primary care physician. Lab Data Attestation: I reviewed the patient's lab results. Lab results narrative: CBC shows a white count 7.2. H&H 11.1 and 33.9. Platelets 199. Electrolytes show a gap of 7 normal BUN of 12 creatinine of 1. Liver enzymes are unremarkable. Amylase normal at 27. Lipase normal at 57. Glucose 131. Labs: Laboratory Results - last 24 hr 09/05/22 09/05/22 09/05/22 00:40 00:40 02:35 WBC 7.2 RBC 3.12 L Hgb 11.1 L Hct 33.9 L MCV 108.7 H MCH 35.6 H MCHC 32.7 RDW Std Deviation 70.2 H RDW Coeff of Mary 17.6 H Plt Count 199 MPV 11.5 Immature Gran % (Auto) 0.400 Neut % (Auto) 85.2 H Lymph % (Auto) 7.8 L [place] % (Auto) 4.8 Eos % (Auto) 1.4 Baso % (Auto) 0.4 Absolute Neuts (auto) 6.1 Absolute Lymphs (auto) 0.56 L Nucleated RBC % 0 Differential Comment SCANNED Anisocytosis 1+ Macrocytosis 1+ Sodium 140 Potassium 3.7 Chloride 105 Carbon Dioxide 28.0 Anion Gap 7 BUN 12 Creatinine 1.00 Estim Creat Clear Calc 34.91 Est GFR (MDRD) Af Amer 70 Est GFR (MDRD) Non-Af 58 L BUN/Creatinine Ratio 12.0 Glucose 131 H Calcium 8.7 Total Bilirubin 0.40 AST 19 ALT 24 Alkaline Phosphatase 100 Total Protein 7.3 Albumin 3.5 Globulin 3.8 Albumin/Globulin Ratio 0.9 Amylase 27 Lipase 57 L Urine Color Yellow Urine Clarity Clear Urine pH 5.0 Ur Specific [place] 1.010 Urine Protein 15 H Urine Glucose (UA) Normal Urine Ketones Negative Urine Occult Blood Negative Urine Nitrite Negative Urine Bilirubin Negative Urine Urobilinogen Normal Ur Leukocyte Esterase 25 H Urine RBC 0 SEEN Urine WBC 0-5 SEEN Ur Squamous Epith Cells 0-5 SEEN Urine Bacteria 0 SEEN Urine Mucus 0 SEEN Radiography Diagnostic Testing: Clinical Impression(s) from Imaging Studies Abdomen/Pelvis CT 09/05/22 00:14 IMPRESSION: There is a cyst in the segment #4 of the liver measures 1.8 cm. Cholelithiasis. Descending colon and sigmoid diverticulosis. Electronically Signed: Nataliya Root MD at 2:44 EST , Discharge Plan Triage Chief Complaint: Nausea/Vomiting ED Provider: Yung Oconnell Dx/Rx/DC Orders Clinical Impression: Abdominal pain, Viral gastroenteritis, Vomiting Instructions: ED Gastroenteritis, Viral (Adult) Prescriptions: New ondansetron 4 mg tablet,disintegrating 4 mg PO Q6H PRN (Reason: nausea and vomiting) Qty: 7 0RF No Action epinephrine 0.3 MG/0.3 ML auto-injector 0.3 mg IJ X1 PRN (Reason: Anaphylaxis) Qty: 2 1RF Rx Instructions: OK to dispense generic oxycodone-acetaminophen [Percocet] 5-325 mg tablet 1 tab PO Q6H PRN (Reason: pain) 3 Days Qty: 12 0RF ondansetron 4 mg tablet,disintegrating 4 mg PO Q8H PRN (Reason: nausea and vomiting) Qty: 10 0RF potassium chloride [Klor-Con M20] 20 mEq tablet,ER particles/crystals 20 meq PO DAILY gabapentin 100 mg capsule 100 mg PO BID amoxicillin-pot clavulanate [Augmentin] 875-125 mg tablet 1 tab PO BID 10 Days Qty: 20 0RF oxycodone-acetaminophen 5-300 mg tablet 1 tab PO Q6H PRN (Reason: pain) 5 Days Qty: 14 0RF ondansetron 4 mg tablet,disintegrating 4 mg PO Q8H PRN (Reason: nausea and vomiting) 4 Days Qty: 10 0RF Primary Care Provider: Jeff Diehl Referrals: Jeff Diehl MD [Primary Care Provider] - 1-2 Days if not improving Activity Restrictions/Additional Instructions: Plenty of fluids and rest. Increase your diet slowly as tolerated. Your labs and CAT scan were unremarkable this is most likely secondary to a virus. Zofran as needed for nausea. If you do not need it you no need of an ED at the prescription filled. Disposition Disposition: Home, Self Care
[2022-09-05] MEDS: Ondansetron 4 MG/2 ML Vial IV (00:32)
[2022-09-05] MEDS: MethylPREDNISolone 125 MG/2 ML Vial IV (00:32)
[2022-09-05] MEDS: 0.9% Normal Saline 1,000 ML 1000 ML IV (00:32)
[2022-09-05] MEDS: Morphine 2 MG/ML Syringe IV (00:32)
[2022-09-05 00:44] LABS: Absolute Lymphocyte Count 0.56 X10^3/uL (0.83-4.51); Absolute Neutrophil Count 6.1 X10^3/uL (2.0-7.7); Basophil# 0.03 X10^3/uL; Basophil% 0.4 % (0-1); Eosinophils% 1.4 % (0-5); Hematocrit 33.9 % (37-47); Hemoglobin 11.1 g/dL (12.0-15.0); Lymphocyte # 0.56 X10^3/ul (0.83-4.51); Lymphocyte % 7.8 % (19-41); Mean Corp Hgb Conc 32.7 g/dL (32-36); Mean Corpuscular Hgb 35.6 pg (27.0-32.0); Mean Corpuscular Volume 108.7 fL (81-99); Mean Platelet Vol. 11.5 fl (6.2-12.0); Monocyte# 0.34 X10^3/uL; Monocyte% 4.8 % (0-10); NRBC Flagged by Analyzer 0 % (0-5); Neutrophil # 6.09 X10^3/uL (2.7-7.7); Neutrophil % 85.2 % (47-70); POSITIVE DIFFERENTIAL YES; POSITIVE MORPHOLOGY YES; Platelet Count 199 K/mm3 (150-450); RBC Distribution Width CV 17.6 % (11.6-14.6); RBC Distribution Width SD 70.2 fl (35.1-43.9); Red Blood Count 3.12 M/mm3 (4.2-5.4); White Blood Count 7.2 K/mm3 (4.4-11.0)
[2022-09-05 00:46] VITALS: TEMP 37
[2022-09-05 00:51] LABS: Differential Indicated SCAN CRITERIA MET
[2022-09-05 01:00] LABS: ALB/GLOB Ratio 0.9 RATIO (0.9-2.4); AST(SGOT) 19 U/L (15-37); Alanine Aminotransfer ALT/SGPT 24 U/L (13-56); Albumin, Serum 3.5 g/dL (3.2-5.0); Alkaline Phosphatase 100 U/L (45-117); Amylase 27 U/L (25-115); Anion Gap 7 (5-15); BUN 12 mg/dL (7-18); Calcium,Total 8.7 mg/dL (8.5-10.1); Chloride 105 mmol/L (98-107); EST Glomerular Filtration Rate 58 mL/min (>60); Est Glom Filt Rate - Afr Amer 70 mL/min (>60); Estimated Creatinine Clearance 34.91 ml/min; Globulin 3.8 g/dL (2.2-4.2); Glucose 131 mg/dL (74-106); Lipase 57 U/L (73-393); Potassium 3.7 mmol/L (3.5-5.1); Protein, Total 7.3 g/dL (6.4-8.2); Sodium Level 140 mmol/L (136-145)
[2022-09-05 01:25] LABS: Differential Comment SCANNED
[2022-09-05 01:26] LABS: Anisocytosis 1+; Macrocytosis 1+
[2022-09-05 02:39] LABS: Bacteria 0 SEEN /hpf (None Seen); Mucous, Urine 0 SEEN /hpf (<or=2+); Red Blood Cells-Urine 0 SEEN /hpf (0-5)
[2022-09-05 02:40] LABS: Glucose, Dipstick Normal (Normal); Ketone-Dipstick Negative (Negative); Leukocyte Esterase-Dipstick 25 /ul (Negative); Nitrite-Dipstick Negative (Negative); Occult Blood-Urine Negative /ul (Negative); Protein-Dipstick 15 mg/dl (Negative); Urine Bilirubin Dipstick Negative (Negative); Urine Urobilinogen Normal (Normal)
[2022-09-05 02:48] LABS: Color, Urine Yellow (Yellow); Urine Clarity Clear (Clear)
[2022-09-05 02:49] LABS: Squamous Epithelial Cells - UA 0-5 SEEN /hpf (5-10); White Blood Cells 0-5 SEEN /hpf (0-5)
== END 2022-09-05 03:36 | disposition home or self-care (01) ==
PROVIDERS: Emergency Provider Emergency Medicine; PCP Family Medicine; Visit Provider Emergency Medicine
DX: A08.4 Viral intestinal infection, unspecified (principal); K80.20 Calculus of gallbladder without cholecystitis without obstruction; E78.5 Hyperlipidemia, unspecified; E86.0 Dehydration; R11.2 Nausea with vomiting, unspecified; R19.7 Diarrhea, unspecified
CPT/HCPCS: 74177; 80053; 81001; 82150; 83690; 85025; 96361; 96374; 96375; 99283; J7030; Q9967; A4216; J2405

== ENCOUNTER 2023-04-29 03:17 | Emergency (ER) | payer MEDICARE, SELFPAY ==
[2023-04-29 03:18] VITALS: BP 99/64; PULSE 108; RESP 20; TEMP 36.6; O2SAT 98
--- NOTE | 2023-04-29 03:35 | ED.VIS.GI ---
HPI HPI - GI History of Present Illness Chief Complaint: Constipation Informant: patient, spouse/S.O. and EMS Narrative Narrative: Patient has been constipated for the last couple days having difficulty having bowel movements, they have been very hard. Tonight for the last couple hours, she has had rectal/anal pain, due to hard stool being there that she is unable to push out. She denies any abdominal pain, nausea, vomiting. She presents by EMS due to this discomfort because she is having trouble sitting. She denies having any rectal bleeding. [facility] Medical History Alcohol use Anemia Dermatomyositis High cholesterol History of asthma History of COVID-19 History of stress test Hyperlipidemia Memory deficit Non-smoker Ovarian cancer Shortness of breath on exertion Medical History no medical history Home Medications epinephrine 0.3 mg/0.3 mL injection, auto-injector 0.3 mg (0.3 mL) IJ X1 PRN Anaphylaxis ##2 01/13/19 [Rx Last Taken Unknown] oxycodone-acetaminophen 5 mg-325 mg tablet (Percocet) 1 tab PO Q6H PRN pain 3 days #12 tabs 04/07/21 [Rx Last Taken Unknown] ondansetron 4 mg disintegrating tablet 4 mg PO Q8H PRN nausea and vomiting #10 tabs 04/28/21 [Rx Last Taken Unknown] amoxicillin 875 mg-potassium clavulanate 125 mg tablet (Augmentin) 1 tab PO BID 10 days #20 tabs 07/10/21 [Rx Last Taken Unknown] gabapentin 100 mg capsule 100 mg PO BID 07/10/21 [History Last Taken Unknown] ondansetron 4 mg disintegrating tablet 4 mg PO Q8H PRN nausea and vomiting 4 days #10 tabs 07/10/21 [Rx Last Taken Unknown] oxycodone-acetaminophen 5 mg-300 mg tablet 1 tab PO Q6H PRN pain 5 days #14 tabs 07/10/21 [Rx Last Taken Unknown] potassium chloride 20 mEq tablet,extended release(part/cryst) (Klor-Con M) 20 meq PO DAILY 07/10/21 [History Last Taken Unknown] ondansetron 4 mg disintegrating tablet 4 mg PO Q6H PRN nausea and vomiting #7 tabs 09/05/22 [Rx Last Taken Unknown] Allergy/AdvReac Type Severity Reaction Status Date / Time mushroom Allergy Mild Hives Verified 04/29/23 03:19 aspirin Allergy Angioedema, Verified 04/29/23 03:19 SOB, HIVES Iodinated Contrast Media Allergy Hives Verified 04/29/23 03:19 [Iodinated Contrast Media - Oral and] shellfish derived Allergy Hives Verified 04/29/23 03:19 strawberry Allergy Hives Verified 04/29/23 03:19 Family History Mother Cancer pancreatic Father Hypertension Surgical History History of ankle surgery History of bilateral tubal ligation History of colonoscopy History of total hysterectomy S/P tubal ligation Status post ovarian cystectomy Social History Smoking Status: Never smoker alcohol intake: current alcohol intake frequency: holidays/special occasions only substance use type: does not use ROS ROS ED Constitutional Constitutional ED: Denies chills or fever(s) Gastrointestinal Gastrointestinal: Reports constipation; Denies abdominal pain, diarrhea, melena, nausea or vomiting Musculoskeletal Musculoskeletal: Denies back pain or neck pain Integumentary Denies abscess or rash Neurologic Neurologic: Denies paresthesias or weakness Psychiatric Psychiatric: Reports anxiety; Denies suicidal thoughts EXAM Physical Exam Const Vital Signs: 04/29/23 03:18 Temperature 97.8 F Temperature Source Temporal Pulse Rate 108 H Respiratory Rate 20 H Blood Pressure 99/64 Blood Pressure Mean 75 Pulse Ox 98 Oxygen Delivery Method Room Air Positive well nourished, well developed and obese General Appearance ED: well developed and NAD Nutritional Appearance: obese HEENT Reports moist mucous membranes Eyes PERRL and EOMs intact bilaterally Neck supple Resp normal respiratory effort GI non-tender and non-distended GI Narrative: On rectal, she has hard stool emanating from the anus that she is unable to push out further, there is no bleeding, abscess, digital rectal is uncomfortable, but I am able to sweep the hard stool but not able to get much out digitally. No blood or bleeding. No hemorrhoids seen or palpated. Inspection: Negative for abdominal distention Back/Spine no CVA tenderness Extremity full ROM Neuro CN's II-XII intact bilaterally, moves all extremities, no sensory deficits noted and gait normal Psych Mood & Affect: anxious Skin no wounds Rashes: no rashes MDM MDM MDM Narrative Medical decision making narrative: Patient has a bolus of very hard stool distally in the rectum/anus, very difficult to remove manually, very uncomfortable just to sweep around that to try to loosen it for the patient much less to pull it out manually. We did a fleets enema the, the fluid went in around it, but still she was unable to push it out. Nursing then did a soapsuds enema, and this did help loosen it up and the patient was able to push it out with nurses assistance, and she felt much better afterwards. Given appropriate discharge instructions. Discharge Plan Triage Chief Complaint: Constipation ED Provider: Ray Sapp Dx/Rx/DC Orders Clinical Impression: Acute constipation Instructions: ED Constipation (Adult) Prescriptions: No Action epinephrine 0.3 MG/0.3 ML auto-injector 0.3 mg IJ X1 PRN (Reason: Anaphylaxis) Qty: 2 1RF Rx Instructions: OK to dispense generic oxycodone-acetaminophen [Percocet] 5-325 mg tablet 1 tab PO Q6H PRN (Reason: pain) 3 Days Qty: 12 0RF ondansetron 4 mg tablet,disintegrating 4 mg PO Q8H PRN (Reason: nausea and vomiting) Qty: 10 0RF potassium chloride [Klor-Con M20] 20 mEq tablet,ER particles/crystals 20 meq PO DAILY gabapentin 100 mg capsule 100 mg PO BID amoxicillin-pot clavulanate [Augmentin] 875-125 mg tablet 1 tab PO BID 10 Days Qty: 20 0RF oxycodone-acetaminophen 5-300 mg tablet 1 tab PO Q6H PRN (Reason: pain) 5 Days Qty: 14 0RF ondansetron 4 mg tablet,disintegrating 4 mg PO Q8H PRN (Reason: nausea and vomiting) 4 Days Qty: 10 0RF ondansetron 4 mg tablet,disintegrating 4 mg PO Q6H PRN (Reason: nausea and vomiting) Qty: 7 0RF Primary Care Provider: Jeff Diehl Referrals: Jeff Diehl MD [Primary Care Provider] - 3-5 Days if not improving Activity Restrictions/Additional Instructions: MiraLAX daily 1 capful dissolved in at least 8 ounces of any fluid is recommended along with plenty of fluids subsequently. Disposition Disposition: Home, Self Care
[2023-04-29] MEDS: Fleet Enema 1 ML RC (04:42)
== END 2023-04-29 05:36 | disposition home or self-care (01) ==
PROVIDERS: Emergency Provider Emergency Medicine; PCP Family Medicine; Visit Provider Emergency Medicine
DX: K59.00 Constipation, unspecified (principal); E78.00 Pure hypercholesterolemia, unspecified; E66.9 Obesity, unspecified; Z79.899 Other long term (current) drug therapy
CPT/HCPCS: 99282

== ENCOUNTER 2024-07-03 12:30 | Emergency (ER) | payer MEDICARE, SELFPAY ==
[2024-07-03 12:32] VITALS: BP 143/69; PULSE 81; RESP 18; TEMP 36.6; O2SAT 95; BMI 34.3
[2024-07-03 12:38] VITALS: O2SAT 98
--- NOTE | 2024-07-03 12:41 | ED.RN ---
Dr. Bailey bedside
--- NOTE | 2024-07-03 12:46 | CT_ITS ---
EXAM: CT CERVICAL SPINE WITHOUT INTRAVENOUS CONTRAST CLINICAL INDICATION: fall, neck pain TECHNIQUE: Helically acquired images were obtained of the cervical spine without intravenous contrast. 2D reformatted images were reviewed. This CT exam was performed using one or more of the following dose reduction techniques: automated exposure control, adjustment of the mA and/or kV according to patient size, and/or use of iterative reconstruction technique. RADIATION DOSE: CTDIvol = 24.88 mGy, DLP = 454.99 mGy-cm COMPARISON: No relevant prior studies available. 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 Prominent anterior marginal spurs at C3-C4 and smaller anterior marginal spurs at C4-C5. Moderately pronounced bilateral C4-C5 posterior degenerative facet hypertrophy. No discrete lytic or blastic abnormality. No acute fractures or remote fractures of the vertebral bodies and posterior osseous elements. No traumatic subluxation or malalignment of the cervical spine, craniocervical junction and cervicothoracic junction. DISCS/SPINAL CANAL/NEURAL FORAMINA: See above. SOFT TISSUES: Unremarkable. No prevertebral soft tissue swelling. LYMPH NODES: Unremarkable. No cervical adenopathy. LUNG APICES: Unremarkable as visualized. Clear. CT/Spine Cervical without Contras IMPRESSION: 1. No acute fracture or traumatic subluxation of the cervical spine, craniocervical junction and cervicothoracic junction. 2. 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 Electronically Signed: Yogesh Pastor MD at 13:15 EST ,
--- NOTE | 2024-07-03 12:46 | EDS_ITS ---
HPI History of Present Illness Chief Complaint: Fall Detail of Chief Complaint: Fall with head and neck injury Informant: patient and spouse/S.O. Narrative Narrative: Patient presents to the emergency department after sustaining a fall in the garage prior arrival to the emergency department. Patient states that she was stepping back into the house and has 2 steps leading from the garage to the house when she did not fully step onto a stair and fell backward striking her head on the garage floor. No loss of consciousness. She is complaining of pain in her neck. She denies paresthesias or weakness in the extremities. Denies loss of consciousness. EMS was called and patient did not want to move. Patient not anticoagulated. [facility] Medical History Alcohol use Anemia Dermatomyositis High cholesterol History of asthma History of COVID-19 History of stress test Hyperlipidemia Memory deficit Non-smoker Ovarian cancer Shortness of breath on exertion Medical History no medical history Home Medications ?Medication ?Instructions ?Recorded ?Last Taken ?Type epinephrine 0.3 mg/0.3 mL 0.3 mg (0.3 mL) IJ X1 PRN 01/13/19 Unknown Rx injection, auto-injector Anaphylaxis ##2 oxycodone-acetaminophen 5 mg-325 1 tab PO Q6H PRN pain 3 days #12 04/07/21 Unknown Rx mg tablet (Percocet) tabs ondansetron 4 mg disintegrating 4 mg PO Q8H PRN nausea and 04/28/21 Unknown Rx tablet vomiting #10 tabs amoxicillin 875 mg-potassium 1 tab PO BID 10 days #20 tabs 07/10/21 Unknown Rx clavulanate 125 mg tablet (Augmentin) gabapentin 100 mg capsule 100 mg PO BID 07/10/21 Unknown History ondansetron 4 mg disintegrating 4 mg PO Q8H PRN nausea and 07/10/21 Unknown Rx tablet vomiting 4 days #10 tabs oxycodone-acetaminophen 5 mg-300 1 tab PO Q6H PRN pain 5 days #14 07/10/21 Unknown Rx mg tablet tabs potassium chloride 20 mEq 20 meq PO DAILY 07/10/21 Unknown History tablet,extended release(part/cryst) (Klor-Con M) ondansetron 4 mg disintegrating 4 mg PO Q6H PRN nausea and 09/05/22 Unknown Rx tablet vomiting #7 tabs Allergy/AdvReac Type Severity Reaction Status Date / Time mushroom Allergy Mild Hives Verified 07/03/24 12:37 aspirin Allergy Angioedema, Verified 07/03/24 12:37 SOB, HIVES Iodinated Contrast Media Allergy Hives Verified 07/03/24 12:37 (Iodinated Contrast Media - Oral and) shellfish derived Allergy Hives Verified 07/03/24 12:37 strawberry Allergy Hives Verified 07/03/24 12:37 Family History Mother Cancer pancreatic Father Hypertension Surgical History History of ankle surgery History of bilateral tubal ligation History of colonoscopy History of total hysterectomy S/P tubal ligation Status post ovarian cystectomy Social History Smoking Status: Never smoker alcohol intake: current alcohol intake frequency: holidays/special occasions only substance use type: does not use ROS ROS ED Review of Systems ROS Unobtainable: other Constitutional Constitutional ED: Reports lethargy; Denies chills, fever(s), sweats or weight loss Eyes Eyes: Denies blurry vision, change in vision or diplopia ENT ENT ED: Denies rhinorrhea or sore throat Cardiovascular Cardiovascular: Denies chest pain, orthopnea or racing heartbeat Respiratory/Chest Respiratory/Chest: Denies cough, dyspnea, dyspnea on exertion, orthopnea or sputum Gastrointestinal Gastrointestinal: Denies abdominal pain, diarrhea, nausea or vomiting Genitourinary Genitourinary ED: Denies dysuria, hematuria or urinary frequency Musculoskeletal Musculoskeletal: Reports neck pain and other; Denies arthralgias, back pain or myalgias Integumentary Denies abscess, Abrasions or rash Neurologic Neurologic: Reports headache(s); Denies weakness Psychiatric Psychiatric: Denies anxiety, depression or suicidal thoughts Endocrine Endocrinology: Denies polydipsia, polyphagia or polyuria Hematologic/Lymphatic Hematologic/Lymphatic: Denies easy bleeding, easy bruising or lymphadenopathy Allergic/Immunologic Allergic/Immunologic ED: Denies mouth swelling, tongue swelling or urticaria EXAM Physical Exam Const Vital Signs: 07/03/24 12:32 07/03/24 12:38 Temperature 97.9 F Temperature Source Oral Pulse Rate 81 Respiratory Rate 18 Respiratory Effort Normal Respiratory Depth Normal Respiratory Pattern Normal Blood Pressure 143/69 H Blood Pressure Mean 93 Pulse Ox 95 98 Oxygen Delivery Method Room Air Room Air Positive well nourished and well developed General Appearance ED: well developed and NAD HEENT Reports TM's clear and moist mucous membranes HEENT Narrative: Evaluation of the scalp reveals some faint erythema to the posterior occiput. No significant hematoma. There is no broken skin. No bony step-offs. normocephalic and atraumatic; Negative for trauma or tenderness Tympanic Membrane ED: Yes TM's clear Eyes PERRL and EOMs intact bilaterally General Eye ED: Negative for pale conjunctiva or scleral icterus Neck no lymphadenopathy, supple and no JVD Neck Narrative: Patient has diffuse tenderness to palpation over the cervical spine. No bony step-offs or depressions noted. She does have pain with range of motion. General: tenderness Chest Wall inspection of chest normal and palpation of chest normal Chest: Negative for tenderness Resp normal respiratory effort and clear to auscultation bilaterally Effort and Inspection: Negative for respiratory distress or pain with movement Auscultation: Negative for rhonchi, wheezes or diminished lung sounds Cardio regular rate, regular rhythm, S1 normal heart sound, S2 normal heart sound and no murmurs Peripheral Pulses: pulses 2+ throughout GI normal to inspection, nondistended, normoactive bowel sounds, soft to palpation, non-tender, non-distended and no masses Back/Spine no CVA tenderness and no thoracic nor lumbar tenderness Extremity normal to inspection General Extremety ED: Negative for edema General Extremity: Negative for edema Neuro oriented x3, CN's II-XII intact bilaterally, no sensory deficits noted and gait normal Sensorium / Orientation: awake, alert, oriented to person, oriented to place and oriented to time Motor Exam: strength 5/5 throughout and strength abnormal Psych mental status grossly normal Skin no rashes or lesions noted and no wounds MDM MDM MDM Narrative Medical decision making narrative: Patient with a mechanical fall complaining of head neck pain. Will obtain CT scan of the brain as well as the cervical spine. We will place patient in a c- collar until imaging results return. Patient had CT scan of the brain without contrast that showed no acute traumatic injury. Patient also had a CT scan of the cervical spine which did not show any fractures. Patient advised to follow- up with primary care physician 5 to 7 days. Advised to take ibuprofen or Tylenol for discomfort. Radiography Diagnostic Testing: Clinical Impression(s) from Imaging Studies Brain CT 07/03/24 12:46 IMPRESSION: Negative head/brain CT without intravenous contrast and unchanged. Electronically Signed: Yogesh Pastor MD at 13:09 EST , Cervical Spine CT 07/03/24 12:46 IMPRESSION: 1. No acute fracture or traumatic subluxation of the cervical spine, craniocervical junction and cervicothoracic junction. 2. 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 Electronically Signed: Yogesh Pastor MD at 13:15 EST , Discharge Plan Triage Chief Complaint: Fall ED Provider: Sona Bailey Dx/Rx/DC Orders Clinical Impression: Fall, Closed head injury, Cervical strain Instructions: ED Head Injury (Adult), ED Neck Sprain or Strain Prescriptions: No Action epinephrine 0.3 MG/0.3 ML auto-injector 0.3 mg IJ X1 PRN (Reason: Anaphylaxis) Qty: 2 1RF Rx Instructions: OK to dispense generic oxycodone-acetaminophen [Percocet] 5-325 mg tablet 1 tab PO Q6H PRN (Reason: pain) 3 Days Qty: 12 0RF ondansetron 4 mg tablet,disintegrating 4 mg PO Q8H PRN (Reason: nausea and vomiting) Qty: 10 0RF potassium chloride [Klor-Con M20] 20 mEq tablet,ER particles/crystals 20 meq PO DAILY gabapentin 100 mg capsule 100 mg PO BID amoxicillin-pot clavulanate [Augmentin] 875-125 mg tablet 1 tab PO BID 10 Days Qty: 20 0RF oxycodone-acetaminophen 5-300 mg tablet 1 tab PO Q6H PRN (Reason: pain) 5 Days Qty: 14 0RF ondansetron 4 mg tablet,disintegrating 4 mg PO Q8H PRN (Reason: nausea and vomiting) 4 Days Qty: 10 0RF ondansetron 4 mg tablet,disintegrating 4 mg PO Q6H PRN (Reason: nausea and vomiting) Qty: 7 0RF Primary Care Provider: Jeff Diehl Referrals: Jeff Diehl MD [Primary Care Provider] - 3-5 Days Print Language: Nepali Disposition Disposition: Home, Self Care
--- NOTE | 2024-07-03 12:46 | CT_ITS ---
EXAM: CT HEAD WITHOUT INTRAVENOUS CONTRAST CLINICAL INDICATION: Fall related injury. TECHNIQUE: Multiple axial images were obtained of the head without intravenous contrast. This CT exam was performed using one or more of the following dose reduction techniques: automated exposure control, adjustment of the mA and/or kV according to patient size, and/or use of iterative reconstruction technique. RADIATION DOSE: CTDIvol = 44.99 mGy, DLP = 779.24 mGy-cm COMPARISON: CT head without contrast 01/07/2021. FINDINGS: BRAIN AND EXTRA-AXIAL SPACES: Unremarkable. No intra- or extra-axial hemorrhage. No evidence of acute infarct. No intracranial mass or mass effect. There is preservation of the valentine/white matter interface. Posterior fossa structures are unremarkable. Ventricles are appropriate for age. No hydrocephalus. Basal cisterns are patent. BONES/JOINTS: Unremarkable. No discrete lytic or blastic abnormalities. SINUSES: Unremarkable as visualized. Clear. MASTOID AIR CELLS: Unremarkable. Clear. ORBITS: Visualized globes, extraocular muscles, optic nerves and retrobulbar fat appear unremarkable. CT/Brain/Head without Contrast IMPRESSION: Negative head/brain CT without intravenous contrast and unchanged. Electronically Signed: Yogesh Pastor MD at 13:09 EST ,
--- NOTE | 2024-07-03 12:53 | ED.RN ---
Patient transported to CT
[2024-07-03 14:04] VITALS: BP 143/69; PULSE 81; RESP 18; TEMP 36.6; O2SAT 98
== END 2024-07-03 14:04 | disposition home or self-care (01) ==
PROVIDERS: Emergency Provider Emergency Medicine; PCP Family Medicine; Visit Provider Emergency Medicine
DX: S09.90XA Unspecified injury of head, initial encounter (principal); S16.1XXA Strain of muscle, fascia and tendon at neck level, initial encounter; W10.8XXA Fall (on) (from) other stairs and steps, initial encounter; Y92.015 Private garage of single-family (private) house as the place of occurrence of the external cause; Y93.89 Activity, other specified; Y99.8 Other external cause status; Z86.16 Personal history of COVID-19
CPT/HCPCS: 70450; 72125; 99284

== ENCOUNTER 2025-06-12 16:51 | Emergency (ER) | payer MEDICARE, SELFPAY ==
[2025-06-12 16:52] VITALS: BP 90/81; PULSE 101; RESP 18; TEMP 37.1; O2SAT 96; BMI 32.0
[2025-06-12 17:06] VITALS: BP 125/57; PULSE 89; RESP 16; O2SAT 97
--- NOTE | 2025-06-12 17:15 | CM.ED ---
Social Work Date of referral: 06/12/25 Reason for referral: Advanced Care Directives (ACD's) not on file. Referred by: Social Work Identification Patient provided consent to social work visit. Mold Inspector requested a copy of ACD's which patient agreed to bring in. Lizzie Rushing, SEA CAPTAIN, CONSTRUCTION MANAGER
[2025-06-12 17:34] LABS: Hematocrit 40.2 % (37-47); Hemoglobin 13.0 g/dL (12.0-15.0); Immature Granulocytes Count 0.060 X10^3/uL (0.0-0.0); Mean Corp Hgb Conc 32.3 g/dL (32-36); Mean Corpuscular Volume 85.0 fL (81-99); Mean Platelet Vol. 9.4 fl (6.2-12.0); NRBC Flagged by Analyzer 0 % (0-5); Platelet Count 324 K/mm3 (150-450); RBC Distribution Width CV 14.3 % (11.6-14.6); RBC Distribution Width SD 44.2 fl (35.1-43.9); Red Blood Count 4.73 M/mm3 (4.2-5.4); White Blood Count 14.7 K/mm3 (4.4-11.0)
--- NOTE | 2025-06-12 17:35 | EX.ED.DYSGE1 ---
HPI History of Present Illness Chief Complaint: Abd Pain Narrative Narrative: Chief complaint and HPI: 80-year-old female with past medical history of ovarian cancer status post total hysterectomy, diverticulitis, HLD presents for evaluation of abdominal pain. Patient states 2 days ago she developed diffuse abdominal pain. She denies any fever, chills, shortness of breath, chest pain, nausea, vomiting, diarrhea, dysuria. States at baseline she suffers from constipation. Has had poor p.o. intake secondary to the abdominal pain. Review of systems: See HPI Medications: As listed on the chart Allergies: As listed on the chart PFSH: Per chart Vital signs: As listed on the chart. Reviewed. Physical exam: Gen: A&O x3, NAD Head: Normocephalic, atraumatic Eyes: No sclera icterus, conjunctiva clear ENT: Moist mucous membranes CV: RRR, no murmurs Resp: Lungs CTA BL, no w/r/c GI: Abd soft, non-distended, mildly tender to palpation diffusely, no rebound or rigidity Musc: Moves all extremities Skin: Warm, dry Psych: Cooperative, appropriate mood and affect PFSH PFSH Medical History Alcohol use Anemia Dermatomyositis High cholesterol History of asthma History of COVID-19 History of stress test Hyperlipidemia Memory deficit Non-smoker Ovarian cancer Shortness of breath on exertion Medical History no medical history Home Medications ?Medication ?Instructions ?Recorded ?Last Taken ?Type epinephrine 0.3 mg/0.3 mL 0.3 mg (0.3 mL) IJ X1 PRN 01/13/19 Unknown Rx injection, auto-injector Anaphylaxis ##2 oxycodone-acetaminophen 5 mg-325 1 tab PO Q6H PRN pain 3 days #12 04/07/21 Unknown Rx mg tablet (Percocet) tabs ondansetron 4 mg disintegrating 4 mg PO Q8H PRN nausea and 04/28/21 Unknown Rx tablet vomiting #10 tabs amoxicillin 875 mg-potassium 1 tab PO BID 10 days #20 tabs 07/10/21 Unknown Rx clavulanate 125 mg tablet (Augmentin) gabapentin 100 mg capsule 100 mg PO BID 07/10/21 Unknown History ondansetron 4 mg disintegrating 4 mg PO Q8H PRN nausea and 07/10/21 Unknown Rx tablet vomiting 4 days #10 tabs oxycodone-acetaminophen 5 mg-300 1 tab PO Q6H PRN pain 5 days #14 07/10/21 Unknown Rx mg tablet tabs potassium chloride 20 mEq 20 meq PO DAILY 07/10/21 Unknown History tablet,extended release(part/cryst) (Klor-Con M) ondansetron 4 mg disintegrating 4 mg PO Q6H PRN nausea and 09/05/22 Unknown Rx tablet vomiting #7 tabs Allergy/AdvReac Type Severity Reaction Status Date / Time mushroom Allergy Mild Hives Verified 06/12/25 16:52 aspirin Allergy Angioedema, Verified 06/12/25 16:52 SOB, HIVES Iodinated Contrast Media Allergy Hives Verified 06/12/25 16:52 (Iodinated Contrast Media - Oral and) shellfish derived Allergy Hives Verified 06/12/25 16:52 strawberry Allergy Hives Verified 06/12/25 16:52 Family History Mother Cancer pancreatic Father Hypertension Surgical History History of ankle surgery History of bilateral tubal ligation History of colonoscopy History of total hysterectomy S/P tubal ligation Status post ovarian cystectomy Social History Smoking Status: Never smoker alcohol intake: current alcohol intake frequency: holidays/special occasions only substance use type: does not use EXAM Physical Exam Const Vital Signs: 06/12/25 16:52 06/12/25 17:06 06/12/25 17:18 Temperature 98.7 F Temperature Source Oral Pulse Rate 101 H 89 Respiratory Rate 18 16 Respiratory Effort Normal Respiratory Pattern Normal Blood Pressure 90/81 H 125/57 H Blood Pressure Mean 84 79 Pulse Ox 96 97 Oxygen Delivery Method 06/12/25 19:32 06/12/25 20:13 Temperature Temperature Source Pulse Rate 92 Respiratory Rate 16 Respiratory Effort Respiratory Pattern Blood Pressure 130/65 H 117/52 L Blood Pressure Mean 86 73 Pulse Ox 98 Oxygen Delivery Method Room Air MDM MDM MDM Narrative Medical decision making narrative: 80-year-old female with past medical history of ovarian cancer status post total hysterectomy, diverticulitis, HLD presents for evaluation of abdominal pain. Patient states 2 days ago she developed diffuse abdominal pain. Associated symptom of decreased p.o. intake. Differential diagnosis includes but is not limited to viral gastroenteritis, UTI, diverticulitis, appendicitis, pancreatitis. Patient has allergy to contrast therefore Benadryl, Solu-Medrol ordered. NS bolus and morphine ordered. Laboratory workup ordered including CT abdomen pelvis. CBC with leukocytosis of 14.7. No anemia. BMP unremarkable. Lactic acid unremarkable. Hepatic panel unremarkable except for mildly elevated alkaline phosphatase at 116. Lipase unremarkable. UA positive for UTI. No previous urine cultures. CT abdomen pelvis shows sigmoid diverticulitis without abscess. On reevaluation, patient's pain has improved. Patient will be placed on Augmentin, first dose given here. Follow-up with general surgery and primary care physician. Recommend liquid diet for the next 48 hours afterwards okay to advance as tolerated. Return precautions explained. She confirmed understand the plan. Patient was discharged home. Impression: 1. Uncomplicated diverticulitis 2. UTI Lab Data Labs: Laboratory Results - last 24 hr 06/12/25 06/12/25 06/12/25 17:17 17:31 17:50 WBC 14.7 H RBC 4.73 Hgb 13.0 Hct 40.2 MCV 85.0 MCH 27.5 MCHC 32.3 RDW Std Deviation 44.2 H RDW Coeff of Mary 14.3 Plt Count 324 MPV 9.4 Immature Gran % (Auto) 0.400 Neut % (Auto) 74.1 H Lymph % (Auto) 16.6 L [place] % (Auto) 7.4 Eos % (Auto) 1.0 Baso % (Auto) 0.5 Absolute Neuts (auto) 10.9 H Absolute Lymphs (auto) 2.44 Nucleated RBC % 0 Sodium 137 Potassium 4.1 Chloride 102 Carbon Dioxide 24.5 Anion Gap 10 BUN 10 Creatinine 0.75 Estim Creat Clear Calc 52.17 Est GFR (MDRD) Non-Af 81 BUN/Creatinine Ratio 13.7 Glucose 120 H Lactic Acid 1.3 Calcium 8.8 Total Bilirubin 0.33 AST 19 ALT 22 Alkaline Phosphatase 116 H Total Protein 6.9 Albumin 3.8 Globulin 3.1 Albumin/Globulin Ratio 1.2 Lipase 12 L Urine Color Yellow Urine Clarity Cloudy Urine pH 6.0 Ur Specific [place] 1.020 Urine Protein 15 H Urine Glucose (UA) Normal Urine Ketones Negative Urine Occult Blood 10 H Urine Nitrite Negative Urine Bilirubin Negative Urine Urobilinogen Normal Ur Leukocyte Esterase 100 H Urine RBC 0-5 SEEN Urine WBC 5-10 SEEN Ur Squamous Epith Cells 10-25 SEEN Urine Bacteria 3+ Urine Mucus 0 SEEN Radiography Diagnostic Testing: Clinical Impression(s) from Imaging Studies Abdomen/Pelvis CT 06/12/25 19:06 IMPRESSION: Sigmoid diverticulitis without abscess Reading Location: [facility] Discharge Plan Triage Chief Complaint: Abd Pain ED Provider: Andrews Alvarado Dx/Rx/DC Orders Prescriptions: No Action epinephrine 0.3 MG/0.3 ML auto-injector 0.3 mg IJ X1 PRN (Reason: Anaphylaxis) Qty: 2 1RF Rx Instructions: OK to dispense generic oxycodone-acetaminophen [Percocet] 5-325 mg tablet 1 tab PO Q6H PRN (Reason: pain) 3 Days Qty: 12 0RF ondansetron 4 mg tablet,disintegrating 4 mg PO Q8H PRN (Reason: nausea and vomiting) Qty: 10 0RF potassium chloride [Klor-Con M20] 20 mEq tablet,ER particles/crystals 20 meq PO DAILY gabapentin 100 mg capsule 100 mg PO BID amoxicillin-pot clavulanate [Augmentin] 875-125 mg tablet 1 tab PO BID 10 Days Qty: 20 0RF oxycodone-acetaminophen 5-300 mg tablet 1 tab PO Q6H PRN (Reason: pain) 5 Days Qty: 14 0RF ondansetron 4 mg tablet,disintegrating 4 mg PO Q8H PRN (Reason: nausea and vomiting) 4 Days Qty: 10 0RF ondansetron 4 mg tablet,disintegrating 4 mg PO Q6H PRN (Reason: nausea and vomiting) Qty: 7 0RF Primary Care Provider: Jeff Diehl Referrals: Jeff Diehl MD [Primary Care Provider, Family Practice] Print Language: Indonesian
[2025-06-12] MEDS: DiphenhydrAMINE 50 MG/ML Syringe 25 MG IV (17:53)
[2025-06-12] MEDS: 0.9% Normal Saline (1000mL) 1,000 ML 999 ML IV (17:53)
[2025-06-12 17:58] LABS: Mucous, Urine 0 SEEN /hpf (<or=2+)
[2025-06-12 17:59] LABS: Color, Urine Yellow (Yellow); Glucose, Dipstick Normal (Normal); Ketone-Dipstick Negative (Negative); Leukocyte Esterase-Dipstick 100 /ul (Negative); Nitrite-Dipstick Negative (Negative); Occult Blood-Urine 10 /ul (Negative); Protein-Dipstick 15 mg/dl (Negative); Specific Gravity, Urine 1.020 (1.002-1.030); Urine Bilirubin Dipstick Negative (Negative)
[2025-06-12 18:06] LABS: Red Blood Cells-Urine 0-5 SEEN /hpf (0-5); Squamous Epithelial Cells - UA 10-25 SEEN /hpf (5-10)
[2025-06-12 18:06] LABS: AST(SGOT) 19 U/L (<=31); Alanine Aminotransfer ALT/SGPT 22 U/L (<=34); Albumin, Serum 3.8 g/dL (3.4-4.8); Alkaline Phosphatase 116 U/L (35-104); Anion Gap 10 (5-15); BUN 10 mg/dL (4-19); BUN/Creat Ratio 13.7 RATIO (10-20); Calcium,Total 8.8 mg/dL (7.6-11.0); Carbon Dioxide 24.5 mmol/L (21.0-32.0); Chloride 102 mmol/L (98-108); Estimated Creatinine Clearance 52.17 ml/min (50-250); Globulin 3.1 g/dL (2.2-4.2); Glucose 120 mg/dL (70-99); Lipase 12 U/L (13-75); Potassium 4.1 mmol/L (3.3-5.1)
--- NOTE | 2025-06-12 19:06 | CT_ITS ---
PROCEDURE: CT/Abdomen/Pelvis W IV Cont ONLY
[2025-06-12 19:32] VITALS: BP 130/65; PULSE 92; RESP 16; O2SAT 98
[2025-06-12 20:13] VITALS: BP 117/52
[2025-06-12 20:39] VITALS: BP 117/52; PULSE 92; RESP 16; TEMP 37.1; O2SAT 98
== END 2025-06-12 20:50 | disposition home or self-care (01) ==
PROVIDERS: Emergency Provider Surgery; PCP Family Medicine; Visit Provider Surgery
DX: K57.32 Diverticulitis of large intestine without perforation or abscess without bleeding (principal); N39.0 Urinary tract infection, site not specified
CPT/HCPCS: 74177; 80053; 81001; 83605; 83690; 85025; 87086; 87088; 96361; 96374; 96375; 99285; Q9967; A4216